=== PATIENT | female | born 1940 | race Asian ===

== ENCOUNTER 2017-03-13 23:00 | Inpatient (IN) | END 2017-03-17 21:06 | disposition home or self-care (01) | DRG 247 | DX: I25.719 Atherosclerosis of autologous vein coronary artery bypass graft(s) with unspecified angina pectoris (principal); E87.0 Hyperosmolality and hypernatremia; I25.119 Atherosclerotic heart disease of native coronary artery with unspecified angina pectoris; I10 Essential (primary) hypertension; E78.5 Hyperlipidemia, unspecified; Z87.11 Personal history of peptic ulcer disease; Z79.02 Long term (current) use of antithrombotics/antiplatelets; I25.82 Chronic total occlusion of coronary artery; Z95.5 Presence of coronary angioplasty implant and graft ==

== ENCOUNTER 2017-04-01 17:48 | Inpatient (IN) | payer MEDICARE, BC ==
[~2017-04-01] VITALS: Ht 154.9 cm; Wt 54.1 kg
[~2017-04-01 17:48] MED LIST: ASPI325T32 PO; CARV3.1260 PO; CLOP75TA27 PO; DOCU100C26 PO; ESTR1TAB14 PO; FERR-55 PO; ISOS60TA PO; LOSA25TA5 PO; OMEG100011 PO; OMEP20CA16 PO; RANO10002 PO; SIMV40TA3 PO; TRAM50TA2 PO; ZOLP10TA5 PO; calcium
[2017-04-01] MEDS ORDERED: ASPIRIN 325 MG TAB PO STA (18:15)
[2017-04-01] MEDS ORDERED: ONDANSETRON 4 MG INJ IV STA (18:15)
[2017-04-01] MEDS ORDERED: morphine 4 MG/ML VIAL IV STA (18:15)
[2017-04-01] MEDS ORDERED: NITROGLYCERIN 2% 1 GM OINT PKT TD STA (18:15)
[2017-04-01 18:26] LABS: BASOPHILS % 0.4 % (0.0-2.0); EOSINOPHILS # 0.1 10^3/ul (0.0-0.5); EOSINOPHILS % 0.9 % (0.0-7.0); HEMATOCRIT 33.8 % (37.0-47.0); HEMOGLOBIN 11.7 g/dl (12.0-16.0); LYMPHOCYTES # 1.1 10^3/ul (0.8-2.9); LYMPHOCYTES % 20.3 % (15.0-51.0); MEAN CORPUSCULAR HEMOGLOBIN 35.7 pg (29.0-33.0); MEAN CORPUSCULAR HGB CONC 34.6 g/dl (32.0-37.0); MEAN PLATELET VOLUME 10.1 fl (7.4-10.4); MONOCYTE # 0.4 10^3/ul (0.3-0.9); MONOCYTES % 7.3 % (0.0-11.0); NEUTROPHIL # 3.9 10^3/ul (1.6-7.5); NEUTROPHILS % 70.7 % (39.0-77.0); PLATELET COUNT 224 10^3/UL (140-415); RED BLOOD COUNT 3.28 10^6/ul (4.20-5.40); RED CELL DISTRIBUTION WIDTH 11.8 % (11.5-14.5); WHITE BLOOD COUNT 5.5 10^3/ul (4.8-10.8)
[2017-04-01] MEDS ORDERED: NITROGLYCERIN (SL) 0.4 MG TAB SL PRN (18:30)
[2017-04-01 18:49] LABS: ALBUMIN 4.5 g/dl (3.3-4.9); ALBUMIN/GLOBULIN RATIO 1.5; BILIRUBIN,INDIRECT 0.3 mg/dl (0-1.1); BILIRUBIN,TOTAL 0.3 mg/dl (0.2-1.3); CALCIUM 9.1 mg/dl (8.4-10.2); CREATININE 0.99 mg/dl (0.44-1.00); POTASSIUM 4.7 mmol/L (3.5-5.1); TOTAL PROTEIN 7.5 g/dl (6.1-8.1)
[2017-04-01 18:52] LABS: INR 0.91; PROTIME 12.3 Sec (12.2-14.2)
[2017-04-01 18:53] LABS: PARTIAL THROMBOPLASTIN TIME 20.8 Sec (25.0-35.0)
--- NOTE | 2017-04-01 18:53 | RADRPT ---
PROCEDURE: XR Chest. CLINICAL INDICATION: Chest pain. TECHNIQUE: Single frontal view of the chest. COMPARISON: 07/12/2016. FINDINGS: Cardiomegaly and mild atherosclerotic calcifications in the thoracic aorta. Mild atelectasis at the left lung base is decreased over the interval. The lungs are otherwise clear. No signs of pleural fluid or pneumothorax are seen. The osseous structures and soft tissues are unremarkable. IMPRESSION: Mild atelectasis at the left lung base is decreased over the interval. RPTAT: [facility] Physician Janine Date Time Electronically viewed and signed by Physician Janine on 04/01/2017 18:53 RS/
[2017-04-01 19:00] LABS: TROPONIN-I 0.03 ng/ml (0.00-0.12)
[2017-04-01] MEDS ORDERED: AMLO2.5T78 PO (19:12)
[2017-04-01] MEDS ORDERED: DOCU-159 PO (19:13)
[2017-04-01] MEDS ORDERED: FER325 PO (19:14)
[2017-04-01] MEDS ORDERED: OMEG-135 PO (19:15)
[2017-04-01] MEDS ORDERED: OMEP20CA16 PO (19:15)
[2017-04-01] MEDS ORDERED: [UNRECOGNIZED DRUG - CODE] PO (19:16)
[2017-04-01] MEDS ORDERED: ASPI-664 PO (19:18)
--- NOTE | 2017-04-01 19:58 | ERA ---
ER Documentation Chief Complaint Date/Time DATE: 04/01/17 TIME: 19:55 Chief Complaint CHEST PAIN FOR 3 DAYS PROGRESSIVELY GETTING WORSE WITH NO SOB. HPI This is a 76-year-old female who was recently discharged in the hospital a few weeks ago for chest pain. Patient sees Dr. Robles is pre coder. The patient says that she had chest pain this morning and a few times throughout the day described as a chest pressure radiating up into her neck or shortness of breath. The patient took nitroglycerin but it did not help much and the chest pain eventually ruled is resolved. The patient was in the hospital and had a cardiac cath and a stent was placed. She has multiple other stents and is a status post CABG patient On arrival here the patient is chest pain-free. ROS All systems reviewed and are negative except as per history of present illness. Medications Home Meds Active Scripts Isosorbide Mononitrate* (Isosorbide Mononitrate*) 60 Mg Tab.er.24h, 30 MG PO DAILY, #60 TAB Prov:MARY ABDI MD 04/10/16 Reported Medications Aspirin* (Aspirin* EC) 81 Mg Tablet.dr, 81 MG PO DAILY, TAB 04/01/17 Estrogens Conjugated* (Premarin*) 0.45 Mg Tablet, 0.45 MG PO DAILY, TAB 04/01/17 Omeprazole* (Omeprazole*) 20 Mg Capsule.dr, 20 MG PO DAILY, #30 CAP 04/01/17 [place]-3 Fatty Acids/Fish Oil (Fish Oil 1,000 mg Capsule) 1 Each Capsule, 1 EACH PO DAILY, CAP 04/01/17 Ferrous Sulfate* (Ferrous Sulfate*) 325 Mg Tabec, 325 MG PO TID, TAB 04/01/17 Docusate Sodium* (Docusate Sodium*) 100 Mg Capsule, 100 MG PO DAILY, #30 CAP 04/01/17 Amlodipine Besylate* (Amlodipine Besylate*) 2.5 Mg Tablet, 2.5 MG PO DAILY, #30 TAB 04/01/17 Tramadol HCl (Tramadol HCl) 50 Mg Tablet, 50 MG PO BID, #60 TAB 03/14/17 Clopidogrel Bisulfate (Clopidogrel) 75 Mg Tablet, 75 MG PO DAILY, #30 TAB 03/14/17 Zolpidem Tartrate* (Zolpidem Tartrate*) 10 Mg Tablet, 10 MG PO QHS Y for INSOMNIA, #30 TAB 08/05/16 Carvedilol* (Carvedilol*) 3.125 Mg Tablet, 3.125 MG PO BID, #60 TAB 08/05/16 Losartan Potassium* (Losartan Potassium*) 25 Mg Tablet, 25 MG PO DAILY, TAB 08/05/16 Ranolazine* (Ranexa*) 1,000 Mg Tab.sr.12h, 1000 MG PO Q12, TAB 04/10/16 Simvastatin (Simvastatin) 40 Mg Tablet, 40 MG PO HS, TAB 10/07/14 Discontinued Reported Medications [calcium] No Conflict Check, 500 MG DAILY 03/14/17 Docusate Sodium* (Doc-Q-Lace*) 100 Mg Capsule, 100 MG PO DAILY, CAP 03/14/17 Estrogen,Con/M-Progest Acet (Prempro 0.45-1.5 mg Tablet) 1 Each Tablet, 1 EACH PO for 1 Day, TAB 08/05/16 Omeprazole* (Omeprazole*) 20 Mg Capsule.dr, 20 MG PO DAILY, #30 CAP 08/05/16 Ferrous Sulfate* (Ferrous Sulfate*) 325 Mg Tablet, 325 MG PO TID, TAB 10/07/14 [place]-3 Fatty Acids/Fish Oil* (Fish Oil *) 1,000 Mg Capsule, 1000 MG PO DAILY, CAP 10/07/14 Discontinued Scripts Aspirin (Aspir-Lissa) 325 Mg Tablet.dr, 325 MG PO DAILY for 28 Days Prov:KATE MERCADO MD 03/17/17 Allergies Allergies: Coded Allergies: No Known Drug Allergies (Verified Allergy, Mild, 04/01/17) PMhx/Soc History of Surgery: Yes (CABG, appendectomy, ) Anesthesia Reaction: No Hx Neurological Disorder: No Hx Respiratory Disorders: No Hx Cardiac Disorders: Yes (NM, CABG, CAD, HTN) Hx Psychiatric Problems: No Hx Miscellaneous Medical Probl: Yes Hx Alcohol Use: No Hx Substance Use: No Hx Tobacco Use: No Smoking Status: Never smoker FmHx Family History: No coronary disease Physical Exam Vitals Vital Signs Date Time Temp Pulse Resp B/P Pulse Ox O2 Delivery O2 Flow Rate FiO2 04/01/17 19:38 Nasal Cannula 2 04/01/17 19:38 78 18 109/70 99 Room Air 04/01/17 18:45 84 18 117/65 99 Room Air 04/01/17 17:51 97.9 83 20 124/86 98 Physical Exam Const: Well-developed, well-nourished Head: Atraumatic, normocephalic Eyes: Normal Conjunctiva, PERRLA, EOMI, normal sclera, no nystagmus ENT: Normal External Ears, Nose and Mouth, moist mucus membranes. Neck: Full range of motion. No meningismus, no lymphadenopathy. Resp: Clear to auscultation bilaterally, no wheezing, rhonchi, rales Cardio: Regular rate and rhythm, 2/6 systolic ejection murmurs, S1 S2 present Abd: Soft, non tender x 4, non distended. Normal bowel sounds, no guarding or rebound, no pulsitile abdominal masses or bruits Skin: No petechiae or rashes, no ecchymosis , no maculopapular rash Back: No midline or flank tenderness Ext: No cyanosis, or edema, FROM x 4, normal inspection, neurovascularly intact x 4 Neur: Awake and alert, STR 5/5 x 4, sensation intact x 4, no focal findings, cerebellum intact Psych: Normal Mood and Affect Result Diagram: 04/01/17180404/01/171804 Results 24 hrs Laboratory Tests Test 04/01/17 18:05 White Blood Count 5.510^3/ul Red Blood Count 3.2810^6/ul Hemoglobin 11.7g/dl Hematocrit 33.8% Mean Corpuscular Volume 103.0fl Mean Corpuscular Hemoglobin 35.7pg Mean Corpuscular Hemoglobin Concent 34.6g/dl Red Cell Distribution Width 11.8% Platelet Count 14147^3/UL Mean Platelet Volume 10.1fl Neutrophils % 70.7% Lymphocytes % 20.3% Monocytes % 7.3% Eosinophils % 0.9% Basophils % 0.4% Nucleated Red Blood Cells % 0.0/100WBC Neutrophils # 3.910^3/ul Lymphocytes # 1.110^3/ul Monocytes # 0.410^3/ul Eosinophils # 0.110^3/ul Basophils # 0.010^3/ul Nucleated Red Blood Cells # 0.010^3/ul Prothrombin Time 12.3Sec Prothrombin Time Ratio 1.0 INR International Normalized Ratio 0.91 Activated Partial Thromboplast Time 20.8Sec Sodium Level 143mmol/L Potassium Level 4.7mmol/L Chloride Level 103mmol/L Carbon Dioxide Level 25mmol/L Anion Gap 20 Blood Urea Nitrogen 23mg/dl Creatinine 0.99mg/dl Glucose Level 143mg/dl Calcium Level 9.1mg/dl Total Bilirubin 0.3mg/dl Direct Bilirubin 0.00mg/dl Indirect Bilirubin 0.3mg/dl Aspartate Amino Transf (AST/SGOT) 31IU/L Alanine Aminotransferase (ALT/SGPT) 27IU/L Alkaline Phosphatase 51IU/L Troponin I 0.030ng/ml Total Protein 7.5g/dl Albumin 4.5g/dl Globulin 3.00g/dl Albumin/Globulin Ratio 1.50 Current Medications Medications (Trade) Dose Ordered Sig/Edward Route PRN Reason Start Time Stop Time Status Last Admin Dose Admin Aspirin (Aspirin) 325 mg ONCE STAT PO 04/01/17 18:15 04/01/17 18:17 DC 04/01/17 18:25 Nitroglycerin (Nitroglycerin 2% Oint) 1 inch ONCE STAT TD 04/01/17 18:15 04/01/17 18:17 DC 04/01/17 18:25 Nitroglycerin (Nitroglycerin (Sl Tab) 0.4 Mg) 1 tab Q5M UP TO 3 DOSES PRN SL CHEST PAIN 04/01/17 18:30 Morphine Sulfate (morphine) 4 mg ONCE STAT IV 04/01/17 18:15 04/01/17 18:17 DC 04/01/17 18:25 Ondansetron HCl (Zofran Inj) 4 mg ONCE STAT IV 04/01/17 18:15 04/01/17 18:17 DC 04/01/17 18:26 Procedures/MDM PROCEDURE: XR Chest. CLINICAL INDICATION: Chest pain. TECHNIQUE: Single frontal view of the chest. COMPARISON: 07/12/2016. FINDINGS: Cardiomegaly and mild atherosclerotic calcifications in the thoracic aorta. Mild atelectasis at the left lung base is decreased over the interval. The lungs are otherwise clear. No signs of pleural fluid or pneumothorax are seen. The osseous structures and soft tissues are unremarkable. IMPRESSION: Mild atelectasis at the left lung base is decreased over the interval. RPTAT: [facility] Physician Janine Date Time Electronically viewed and signed by Diego Campbell Physician on 04/01/2017 18:53 RS/ CC: RHONDA CODY DO EKG: Rate/Rhythm: Normal sinus rhythm, incomplete right bundle branch block QRS, ST, QT: NORMAL PA, QRS, QT] Impression: Abnormal EKG Patient's showing no sign of acute myocardial infarction. Could be some coagulation in her new stent. I did speak with her primary care doctor Dr. Mercado. I will admit to him and consult Dr. Robles We will give Lovenox as precaution case she is developing some clot in her new stent Patient's symptoms are concerning for cardiac cause will require inpatient workup and continuous monitoring. Further w/u for ischemia, arrhythmia, PE or dissection will be deferred to the inpatient team. Accepting Care Team: Current data and ongoing care discussed. Time: Time of admission Primary Provider: [XOXOXO] Consulting: [XOXOXO] Outstanding Data: none Departure Diagnosis: Primary Impression: Chest pain Qualified Code: R07.9 - Chest pain, unspecified type Condition: Stable RHONDA CODY DO Apr 01, 2017 19:58
[2017-04-01] MEDS ORDERED: ONDANSETRON 4 MG INJ IV PRN (20:00)
[2017-04-01] MEDS ORDERED: ACETAMINOPHEN 325 MG TAB PO PRN (20:00)
[2017-04-01] MEDS ORDERED: ENOXAPARIN 60 MG/0.6 ML SYG SC SCH (20:00)
[2017-04-01 20:43] VITALS: TEMP 98
[2017-04-01 21:18] VITALS: PULSE 77
[2017-04-01 21:39] VITALS: Ht 154.9 cm; Wt 54.1 kg
[2017-04-01] MEDS ORDERED: morphine 4 MG/ML VIAL IV PRN (22:51)
[2017-04-02] VITALS (13 sets, daily range): BP systolic 108–121; BP diastolic 58–73; PULSE 62–98; RESP 15–19
--- NOTE | 2017-04-02 | QN ---
Documentation Comment [id number] KATE MERCADO MD Apr 02, 2017 00:00
[2017-04-02] MEDS: PANTOPRAZOLE (EC) 40 MG TAB PO SCH (05:09)
--- NOTE | 2017-04-02 07:23 | HP ---
DATE OF ADMISSION: 04/01/2017 HISTORY OF PRESENT ILLNESS: Heidi Najera is an elderly female who was recently discharged from this hospital with diagnosis of the patient had chest pain. Patient has peptic ulcer disease with ulcer. Patient was admitted for chest pain. Underwent left heart cath. Patient has history of bypass graft and angiography. Patient is status post PTCA and stent x1 to SVC to RCA, with 2.28 mm drug-eluting stent and patient postprocedure was stable and was discharged home. Patient presents back here with chest pain and is being admitted for further management. PAST MEDICAL HISTORY: History of CAD, CABG, hypertension, dyslipidemia, status post PTCA and stent placement. ALLERGIES: NEGATIVE. FAMILY HISTORY: Negative. SOCIAL HISTORY: Negative. MEDICATIONS: Amlodipine, aspirin, Coreg, Plavix, docusate sodium, iron sulfate, isosorbide, losartan, [place]-3 fatty acid, Ranexa, simvastatin, tramadol, Ambien. REVIEW OF SYSTEMS: HEENT: Unremarkable. RESPIRATORY: Unremarkable. CARDIOVASCULAR: Complaining of chest pain and diffuse . GASTROINTESTINAL: Unremarkable. GENITOURINARY: Unremarkable. NEUROLOGIC: Unremarkable. PHYSICAL EXAMINATION: GENERAL: Patient is awake, alert. VITAL SIGNS: Pulse 77, blood pressure 116/77. HEENT: Atraumatic, normocephalic. Pupils equal, reactive to light. No periorbital ecchymosis. NECK: Supple. LUNGS: Clear. CARDIAC: Normal s1s2 are noted. ABDOMEN: Soft, nontender. Bowel sounds positive. No palpable masses. EXTREMITIES: No clubbing, cyanosis, or edema. NEUROLOGIC: Patient is awake, alert. DATA: Hematocrit 33.8. Sodium 143, potassium 4.7. IMPRESSION: 1. Patient has acute coronary syndrome. 2. History of hypertension. 3. History of dyslipidemia. 4. History of coronary artery bypass graft. 5. History of coronary angiogram and percutaneous transluminal coronary angioplasty and stent placement. PLAN: Obtain cardiology consultation. Continue oxygen, aspirin, Plavix, home medications, Lovenox. Cardiology consultation has been obtained. Dictated By: Camron Davis MD /margo/jaimie /Document#: [id number] BRINA
[2017-04-02] MEDS ORDERED: NITROGLYCERIN 2% 1 GM OINT PKT TD SCH (09:00)
[2017-04-02] MEDS: FERROUS SULFATE (EC) 325 MG TAB PO SCH ×3 (09:56→20:48)
[2017-04-02] MEDS: DOCUSATE SODIUM 100 MG CAP PO SCH (09:56)
[2017-04-02] MEDS: ASPIRIN 325 MG TAB PO SCH (09:56)
[2017-04-02] MEDS: ENOXAPARIN 40 MG/0.4 ML SYG SC SCH (09:56)
[2017-04-02] MEDS: CLOPIDOGREL 75 MG TAB PO SCH (09:56)
[2017-04-02] MEDS: AMLODIPINE 2.5 MG TAB PO SCH (09:57)
[2017-04-02] MEDS: traMADol 50 MG TAB PO SCH ×2 (09:57→20:48)
[2017-04-02] MEDS: RANOLAZINE (SR) 500 MG TAB PO SCH ×2 (11:29→20:47)
[2017-04-02] MEDS: LOSARTAN 25 MG TAB PO SCH (11:29)
[2017-04-02] MEDS ORDERED: IBUPROFEN 600 MG TAB PO ONE (13:00)
[2017-04-02] MEDS: ISOSORBIDE DINITRATE 10 MG TAB PO SCH ×2 (13:00→20:47)
--- NOTE | 2017-04-02 13:55 | PN ---
Date/Time of Note Date/Time of Note DATE: 04/02/17 TIME: 13:54 Assessment/Plan VTE Prophylaxis VTE Prophylaxis Intervention: SCD's Lines/Catheters IV [facility]ter [facility]from [facility] [place] Assessment/Plan Chief Complaint/Hosp Course 1. Acute coronary syndrome. 2. Hypertension, controlled. 3. History of dyslipidemia. 4. History of coronary artery bypass graft. 5. History of coronary angiogram and percutaneous transluminal coronary angioplasty and stent placement. 6. CAD 7. Anemia Problems: Assessment/Plan 1. Dr Robles for cardio consult 2. Telemetry Subjective 24 Hr Interval Summary Cardiovascular: chest pain (09/08 , pressure like) Exam/Review of Systems Vital Signs Vitals Vital Signs Date Time Temp Pulse Resp B/P Pulse Ox O2 Delivery O2 Flow Rate FiO2 04/02/17 12:20 77 04/02/17 11:15 97.5 18 111/59 94 04/02/17 07:48 Nasal Cannula 2.0 Exam Constitutional: alert Psych: no complaints ENMT: nl external ears & nose Neck: supple Respiratory: clear to auscultation Cardiovascular: regular rate and rhythm Results Result Diagram: 04/01/17 1805 04/01/17 180 Results 24 hrs Laboratory Tests Test 04/01/17 18:05 04/02/17 06:14 04/02/17 12:09 White Blood Count 5.5 Red Blood Count 3.28 L Hemoglobin 11.7 L Hematocrit 33.8 L Mean Corpuscular Volume 103.0 H Mean Corpuscular Hemoglobin 35.7 H Mean Corpuscular Hemoglobin Concent 34.6 Red Cell Distribution Width 11.8 Platelet Count 224 # Mean Platelet Volume 10.1 Neutrophils % 70.7 Lymphocytes % 20.3 Monocytes % 7.3 Eosinophils % 0.9 Basophils % 0.4 Nucleated Red Blood Cells % 0.0 Neutrophils # 3.9 Lymphocytes # 1.1 Monocytes # 0.4 Eosinophils # 0.1 Basophils # 0.0 Nucleated Red Blood Cells # 0.0 Prothrombin Time 12.3 Prothrombin Time Ratio 1.0 INR International Normalized Ratio 0.91 Activated Partial Thromboplast Time 20.8 L Sodium Level 143 Potassium Level 4.7 Chloride Level 103 Carbon Dioxide Level 25 Anion Gap 20 H Blood Urea Nitrogen 23 H Creatinine 0.99 Glucose Level 143 Calcium Level 9.1 Total Bilirubin 0.3 Direct Bilirubin 0.00 Indirect Bilirubin 0.3 Aspartate Amino Transf (AST/SGOT) 31 Alanine Aminotransferase (ALT/SGPT) 27 Alkaline Phosphatase 51 Troponin I 0.030 0.038 0.031 Total Protein 7.5 Albumin 4.5 Globulin 3.00 Albumin/Globulin Ratio 1.50 Medications Medications Current Medications Morphine Sulfate (morphine) 2 mg Q3H PRN IV CHEST PAIN Last administered on 04/01 23:01; Admin Dose 2 MG; Start 04/01/17 at 22:51 Aspirin (Aspirin) 325 mg DAILY PO Last administered on 04/02/17 09:56; Admin Dose 325 MG; Start 04/02/17 at 09:00 Enoxaparin Sodium (Lovenox) 40 mg DAILY SC Last administered on 04/02/17 09:56 ; Admin Dose 40 MG; Start 04/02/17 at 09:00 Pantoprazole (Protonix Tab) 40 mg DAILY@06 PO Last administered on 04/02/17 05: 09; Admin Dose 40 MG; Start 04/02/17 at 06:00 Amlodipine Besylate (Norvasc) 2.5 mg DAILY PO Last administered on 04/02/17 09: 57; Admin Dose 2.5 MG; Start 04/02/17 at 09:00 Carvedilol (Coreg) 3.125 mg BID PO Last administered on 04/02/17 09:57; Admin Dose 3.125 MG; Start 04/02/17 at 09:00 Clopidogrel Bisulfate (plaVIX) 75 mg DAILY PO Last administered on 04/02/17 09: 56; Admin Dose 75 MG; Start 04/02/17 at 09:00 Docusate Sodium (Colace) 100 mg DAILY PO Last administered on 04/02/17 09:56; Admin Dose 100 MG; Start 04/02/17 at 09:00 Ferrous Sulfate (Ferrous Sulfate (Ec)) 325 mg TID PO Last administered on 12:38; Admin Dose 325 MG; Start 04/02/17 at 09:00 Losartan Potassium (Cozaar) 25 mg DAILY PO Last administered on 04/02/17 11:29 ; Admin Dose 25 MG; Start 04/02/17 at 09:00 Ranolazine (Ranexa) 1,000 mg Q12 PO Last administered on 04/02/17 11:29; Admin Dose 1,000 MG; Start 04/02/17 at 09:00 Tramadol HCl (Ultram) 50 mg BID PO Last administered on 04/02/17t 09:57; Admin Dose 50 MG; Start 04/02/17 at 09:00 Zolpidem Tartrate (Ambien) 10 mg QHS PRN PO INSOMNIA; Start 04/02/17 at 00:00 Isosorbide Dinitrate (Isordil) 10 mg TID PO ; Start 04/02/17 at 13:00 JEWEL MCDONNELL Apr 02, 2017 13:55
--- NOTE | 2017-04-02 15:04 | RADRPT ---
Vent Rate: 65 bpm RR Interval: 0 msec [place] Interval: 218 msec QRS Duration: 96 msec QT Interval: 426 msec QTC Interval: 443 msec P-R-T [place]: 56 - 4 - 72 degrees Sinus rhythm with 1st degree AV block Incomplete right bundle branch block Anterior infarct , age undetermined Abnormal ECG Electronically Signed By: Jason Robles [id number]
[2017-04-02] MEDS: ZOLPIDEM 5 MG TAB PO PRN (20:46)
[2017-04-03] VITALS (10 sets, daily range): BP systolic 99–115; BP diastolic 55–63; PULSE 60–71; RESP 18
--- NOTE | 2017-04-03 03:52 | CONS ---
DATE OF ADMISSION: 04/01/2017 DATE OF CONSULTATION: 04/02/2017 REQUESTING PHYSICIAN: Camron Davis MD REASON FOR CONSULTATION: Chest pain and acute coronary syndrome. HISTORY OF PRESENT ILLNESS: Ms. Najera is a 76-year-old female with history of coronary artery disease status post coronary artery bypass graft surgery, dyslipidemia, hypertension, prior PTCA and stent placement, and GI bleed who had recently undergone PTCA and stent placement to saphenous vein graft supplying the right coronary artery for the episodes of chest pain and findings of high-grade stenosis on cardiac catheterization dated 03/15/2017. She now re-presents with complaint of substernal chest pain. The patient describes this chest pain as occurring at rest, with radiation down to her abdomen and has a pressure- like heaviness component, as well as stabbing. Upon arrival in the Emergency Department, temperature of 97.9, blood pressure 124/86, pulse 83, respiratory rate 20, saturating at 98 percent. The patient's labs revealed a sodium of 142, potassium 4.7, creatinine 0.99, BUN 23, troponin negative; AST 31, ALT 27; white count is 5.5, hemoglobin 11.7, platelet count of 224; INR 0.91. The patient underwent a chest x-ray revealing mild atelectasis at the lung bases. The patient's electrocardiogram revealed sinus rhythm at 84 with incomplete right bundle branch block, secondary to repolarization abnormalities and nonspecific ST and T-wave insufficiency. The patient was subsequently admitted to the floor and since admitted to the floor has had second set of troponins which were negative when checking troponins. The patient states she continues to have chest pain at this time and on palpation of her chest I was able to reproduce much of the patient's chest pain component with pressure applied to her chest. PAST MEDICAL HISTORY: As above in the HPI. MEDICATIONS: Currently in the hospital: 1. Aspirin 325 mg daily. 2. Nitroglycerin paste 1 inch q.12 hours. 3. Lovenox 5 mg subcu daily. 4. Norvasc 2.5 mg daily. 5. Carvedilol 3.125 mg p.o. b.i.d. 6. Plavix 75 mg daily. 7. Cozaar 25 mg daily. 8. Ranexa 1000 mg q.12 hours. 9. Protonix 40 mg daily. 10. Ultram 50 mg 2 b.i.d. 11. Warfarin p.r.n. 12. Tylenol p.r.n. 13. Supplemental oxygen. ALLERGIES: NO KNOWN DRUG ALLERGIES. SOCIAL HISTORY: No tobacco, EtOH or illicit drug use. FAMILY HISTORY: Negative for sudden cardiac or early CAD. REVIEW OF SYSTEMS: Other than in HPI: CONSTITUTIONAL: No fevers or chills. PULMONARY: No current shortness of breath. CARDIOVASCULAR: Intermittent chest pain. GASTROINTESTINAL: No vomiting. GENITOURINARY: No hematuria. MUSCULOSKELETAL: Degenerative joint disease. PSYCHIATRIC: Possible anxiety. NEUROLOGIC: No neurologic deficits or CVA. PHYSICAL EXAMINATION: VITAL SIGNS: Temperature of 97.5, blood pressure 111/59, pulse 59, respiratory rate 18, saturating at 94 percent. GENERAL: The patient is alert, awake, complaining of substernal chest pain. NECK: JVP approximately 8-9 cm of water. CHEST: Fair air movement throughout. HEART: Regular rate and rhythm. Normal S1, S2 and 1/6 systolic murmur. Nondisplaced PMI. ABDOMEN: Soft. Positive bowel sounds. EXTREMITIES: No edema, 1-plus pulses bilaterally posterior tibial. LABORATORY: Most recently from today: Troponin negative x2. From yesterday, sodium 143, potassium 4.7, creatinine 0.99, BUN of 23; white blood cell count 5.5, hemoglobin 11.7 platelet count 224. Imaging studies, as above in HPI. No further imaging studies for my review at this time. ECG, as above in HPI. No further electrocardiogram for my review at this time. IMPRESSION: 1. Chest pain recurrence. Somewhat atypical at this time with reproducibility of chest pain on palpation of the patient's chest. Negative troponins x2 at this time. Status post recent percutaneous transluminal coronary angioplasty and stent placement to saphenous vein graft. All grafts patent and sten patent at that time. 2. History of percutaneous transluminal coronary angioplasty and stent placement to saphenous vein graft supplying the right coronary artery 03/15/2017 with drug-eluting stent. 3. Coronary artery disease status post coronary artery bypass graft surgery with the patient's grafts patent, with high-grade stenosis at time of catheterization February 2017, status post percutaneous transluminal coronary angioplasty and stent placement to this graft. 4. Diastolic dysfunction by most recent 2D echocardiogram 03/15/2017. 5. Abnormal electrocardiogram with nonspecific ST and T-wave abnormalities. Assessed for acute coronary syndrome, with negative troponins x2. 6. Hypertension. Under reasonable control. 7. Dyslipidemia. RECOMMENDATIONS: 1. At this time, would maintain the patient on her current medications including aspirin, Cozaar, and Norvasc, would discontinue the patient's nitro paste, and resume the patient's baseline oral nitrates, follow blood pressure closely with possible need to hold the patient's losartan if blood pressure is low and continuing other antianginal medications. 2. Continue the patient's aspirin and Plavix at this time for stent patency. 3. Complete to test to rule out myocardial infarction to ascertain if the patient's chest pain is not due to any recurrent acute coronary syndrome as acute myocardial infarction. 4. Continue to check serial EKGs to assess for any particular changes with an EKG in the morning. EKG for any complaint of chest pain or change in rhythm. Also give the patient a dose of ibuprofen to see if it improves possible musculoskeletal chest pain, as there is reproducibility of chest pain on palpation of the chest and we will review the patient's catheterization films to ensure there are no other unidentified vessels that may be related chest pain. Thanks for letting me take part in the care of this patient. I will continue to follow her very closely with you and effect changes that need to be made in regards to her inpatient hospital course. Dictated By: Armando Staton /margo/lucinda /Document#: [id number] CC: Camron Davis MD;*[facility]*
[2017-04-03] MEDS: PANTOPRAZOLE (EC) 40 MG TAB PO SCH (05:53)
[2017-04-03 06:38] LABS: BASOPHILS % 0.5 % (0.0-2.0); EOSINOPHILS # 0.1 10^3/ul (0.0-0.5); EOSINOPHILS % 2.6 % (0.0-7.0); HEMATOCRIT 32.6 % (37.0-47.0); HEMOGLOBIN 11.3 g/dl (12.0-16.0); LYMPHOCYTES # 1.2 10^3/ul (0.8-2.9); LYMPHOCYTES % 31.5 % (15.0-51.0); MEAN CORPUSCULAR HGB CONC 34.7 g/dl (32.0-37.0); MEAN CORPUSCULAR VOLUME 103.8 fl (82.0-101.0); MONOCYTE # 0.5 10^3/ul (0.3-0.9); MONOCYTES % 12.5 % (0.0-11.0); NEUTROPHIL # 2.1 10^3/ul (1.6-7.5); NEUTROPHILS % 52.6 % (39.0-77.0); PLATELET COUNT 201 10^3/UL (140-415); RED BLOOD COUNT 3.14 10^6/ul (4.20-5.40); RED CELL DISTRIBUTION WIDTH 11.9 % (11.5-14.5); WHITE BLOOD COUNT 3.9 10^3/ul (4.8-10.8)
[2017-04-03 07:01] LABS: CALCIUM 8.9 mg/dl (8.4-10.2); CREATININE 0.81 mg/dl (0.44-1.00); POTASSIUM 4.3 mmol/L (3.5-5.1)
[2017-04-03 07:02] LABS: CHOL/HDL RATIO 2.2 RATIO
[2017-04-03] MEDS: LOSARTAN 25 MG TAB PO SCH (09:00)
[2017-04-03] MEDS: ISOSORBIDE DINITRATE 10 MG TAB PO SCH ×3 (09:00→20:04)
[2017-04-03] MEDS: AMLODIPINE 2.5 MG TAB PO SCH (09:00)
[2017-04-03] MEDS: CLOPIDOGREL 75 MG TAB PO SCH (09:13)
[2017-04-03] MEDS: RANOLAZINE (SR) 500 MG TAB PO SCH ×2 (09:13→20:05)
[2017-04-03] MEDS: DOCUSATE SODIUM 100 MG CAP PO SCH (09:13)
[2017-04-03] MEDS: ASPIRIN 325 MG TAB PO SCH (09:13)
[2017-04-03] MEDS: FERROUS SULFATE (EC) 325 MG TAB PO SCH ×3 (09:13→20:04)
[2017-04-03] MEDS: ENOXAPARIN 40 MG/0.4 ML SYG SC SCH (09:15)
[2017-04-03] MEDS: traMADol 50 MG TAB PO SCH ×2 (09:16→21:19)
[2017-04-03] MEDS ORDERED: morphine 2 MG INJ IV PRN (12:00)
--- NOTE | 2017-04-03 13:47 | PN ---
Date/Time of Note Date/Time of Note DATE: 04/03/17 TIME: 13:47 Assessment/Plan VTE Prophylaxis VTE Prophylaxis Intervention: ambulation Lines/Catheters IV Catheter Type (from [facility]): Saline Lock Urinary Cath still in place: No Assessment/Plan Chief Complaint/Hosp Course 1. Acute coronary syndrome. 2. Hypertension, controlled. 3. History of dyslipidemia. 4. History of coronary artery bypass graft. 5. History of coronary angiogram and percutaneous transluminal coronary angioplasty and stent placement. 6. CAD 7. Anemia Problems: Assessment/Plan 1. Continue current regime Subjective 24 Hr Interval Summary Constitutional: improved, no complaints Gastrointestinal: no complaints Genitourinary: no complaints Musculoskeletal: no complaints Exam/Review of Systems Vital Signs Vitals Vital Signs Date Time Temp Pulse Resp B/P Pulse Ox O2 Delivery O2 Flow Rate FiO2 04/03/17 11:18 98.1 66 18 112/63 96 04/02/17 22:00 Nasal Cannula 2.0 Intake and Output 04/02/17 04/02/17 04/03/17 15:00 23:00 07:00 Intake Total 1200 ml 300 ml Balance 1200 ml 300 ml Exam Psych: no complaints Head: normocephalic Neck: supple Respiratory: clear to auscultation Cardiovascular: regular rate and rhythm Results Result Diagram: 04/03/17 0541 04/03/17 0541 Results 24 hrs Laboratory Tests Test 04/03/17 05:41 White Blood Count 3.9 #L Red Blood Count 3.14 L Hemoglobin 11.3 L Hematocrit 32.6 L Mean Corpuscular Volume 103.8 H Mean Corpuscular Hemoglobin 36.0 H Mean Corpuscular Hemoglobin Concent 34.7 Red Cell Distribution Width 11.9 Platelet Count 201 Mean Platelet Volume 10.0 Neutrophils % 52.6 Lymphocytes % 31.5 Monocytes % 12.5 H Eosinophils % 2.6 Basophils % 0.5 Nucleated Red Blood Cells % 0.0 Neutrophils # 2.1 Lymphocytes # 1.2 Monocytes # 0.5 Eosinophils # 0.1 Basophils # 0.0 Nucleated Red Blood Cells # 0.0 Sodium Level 142 Potassium Level 4.3 Chloride Level 101 Carbon Dioxide Level 29 Anion Gap 16 Blood Urea Nitrogen 21 H Creatinine 0.81 Glucose Level 86 # Calcium Level 8.9 Triglycerides Level 103 Cholesterol Level 169 LDL Cholesterol, Calculated 74 HDL Cholesterol 74 Cholesterol/HDL Ratio 2.2 Medications Medications Current Medications Aspirin (Aspirin) 325 mg DAILY PO Last administered on 04/03/17 09:13; Admin Dose 325 MG; Start 04/02/17 at 09:00 Enoxaparin Sodium (Lovenox) 40 mg DAILY SC Last administered on 04/03/17 09:15 ; Admin Dose 40 MG; Start 04/02/17 at 09:00 Pantoprazole (Protonix Tab) 40 mg DAILY@06 PO Last administered on 04/03/17 05: 53; Admin Dose 40 MG; Start 04/02/17 at 06:00 Amlodipine Besylate (Norvasc) 2.5 mg DAILY PO Last administered on 04/02/17 09: 57; Admin Dose 2.5 MG; Start 04/02/17 at 09:00 Carvedilol (Coreg) 3.125 mg BID PO Last administered on 04/02/17 09:57; Admin Dose 3.125 MG; Start 04/02/17 at 09:00 Clopidogrel Bisulfate (plaVIX) 75 mg DAILY PO Last administered on 04/03/17 09: 13; Admin Dose 75 MG; Start 04/02/17 at 09:00 Docusate Sodium (Colace) 100 mg DAILY PO Last administered on 04/03/17 09:13; Admin Dose 100 MG; Start 04/02/17 at 09:00 Ferrous Sulfate (Ferrous Sulfate (Ec)) 325 mg TID PO Last administered on 13:06; Admin Dose 325 MG; Start 04/02/17 at 09:00 Losartan Potassium (Cozaar) 25 mg DAILY PO Last administered on 04/02/17 11:29 ; Admin Dose 25 MG; Start 04/02/17 at 09:00 Ranolazine (Ranexa) 1,000 mg Q12 PO Last administered on 04/03/17 09:13; Admin Dose 1,000 MG; Start 04/02/17 at 09:00 Tramadol HCl (Ultram) 50 mg BID PO Last administered on 04/03/17 09:16; Admin Dose 50 MG; Start 04/02/17 at 09:00 Zolpidem Tartrate (Ambien) 10 mg QHS PRN PO INSOMNIA Last administered on 20:46; Admin Dose 10 MG; Start 8/4/17 at 00:00 Isosorbide Dinitrate (Isordil) 10 mg TID PO Last administered on 04/03/17t 13:06 ; Admin Dose 10 MG; Start 04/02/17 at 13:00 Morphine Sulfate (morphine) 2 mg Q3H PRN IV CHEST PAIN; Start 04/03/17 at 12:00 JEWEL MCDONNELL Apr 03, 2017 13:47
[2017-04-03] MEDS ORDERED: ATORVASTATIN 20 MG TAB PO SCH (21:00)
[2017-04-03] MEDS: ZOLPIDEM 5 MG TAB PO PRN (23:47)
[2017-04-04] VITALS (10 sets, daily range): BP systolic 103–121; BP diastolic 56–64; PULSE 68–76; RESP 17–20
[2017-04-04] MEDS: PANTOPRAZOLE (EC) 40 MG TAB PO SCH (06:40)
[2017-04-04] MEDS: ISOSORBIDE DINITRATE 10 MG TAB PO SCH ×2 (08:52→13:15)
[2017-04-04] MEDS: ASPIRIN 325 MG TAB PO SCH (09:04)
[2017-04-04] MEDS: FERROUS SULFATE (EC) 325 MG TAB PO SCH ×2 (09:04→13:15)
[2017-04-04] MEDS: CLOPIDOGREL 75 MG TAB PO SCH (09:04)
[2017-04-04] MEDS: DOCUSATE SODIUM 100 MG CAP PO SCH (09:04)
[2017-04-04] MEDS: RANOLAZINE (SR) 500 MG TAB PO SCH (09:04)
[2017-04-04] MEDS: LOSARTAN 25 MG TAB PO SCH (09:04)
[2017-04-04] MEDS: AMLODIPINE 2.5 MG TAB PO SCH (09:04)
[2017-04-04] MEDS: traMADol 50 MG TAB PO SCH (09:06)
[2017-04-04] MEDS: ENOXAPARIN 40 MG/0.4 ML SYG SC SCH (09:11)
--- NOTE | 2017-04-04 14:31 | CONS ---
Date/Time of Note Date/Time of Note DATE: 04/04/17 TIME: 14:31 Assessment/Plan Assessment/Plan Additional Assessment/Plan Atypical chest pian CAD s/p CABG, s/p stent to saphenous graft Hypertension Dyslipidemia Anemia Hemodynamically stable Continue Imdur Started on Lipitor Continue Coreg and Losartan Continue Norvasc Continue Ranexa Consultation Date/Type/Reason Admit Date/Time Apr 01, 2017 at 19:54 Initial Consult Date Exam/Review of Systems Vital Signs Vitals Vital Signs Date Time Temp Pulse Resp B/P Pulse Ox O2 Delivery O2 Flow Rate FiO2 04/04/17 13:42 76 04/04/17 11:35 98.1 18 121/64 100 04/02/17 22:00 Nasal Cannula 2.0 Intake and Output 04/03/17 04/03/17 04/04/17 15:00 23:00 07:00 Intake Total 1070 ml Balance 1070 ml Exam Constitutional: alert, oriented Head: atraumatic, normocephalic Respiratory: clear to auscultation Cardiovascular: regular rate and rhythm Gastrointestinal: nl liver, spleen, non-tender, soft Extremities: normal pulses Results Result Diagram: 04/03/17 0541 04/03/17 0541 Medications Medications Current Medications Aspirin (Aspirin) 325 mg DAILY PO Last administered on 04/04/17 09:04; Admin Dose 325 MG; Start 04/02/17 at 09:00 Enoxaparin Sodium (Lovenox) 40 mg DAILY SC Last administered on 04/04/17 09:11 ; Admin Dose 40 MG; Start 04/02/17 at 09:00 Pantoprazole (Protonix Tab) 40 mg DAILY@06 PO Last administered on 04/04/17 06: 40; Admin Dose 40 MG; Start 04/02/17 at 06:00 Amlodipine Besylate (Norvasc) 2.5 mg DAILY PO Last administered on 04/04/17 09: 04; Admin Dose 2.5 MG; Start 04/02/17 at 09:00 Carvedilol (Coreg) 3.125 mg BID PO Last administered on 04/04/17 09:04; Admin Dose 3.125 MG; Start 04/02/17 at 09:00 Clopidogrel Bisulfate (plaVIX) 75 mg DAILY PO Last administered on 04/04/17 09: 04; Admin Dose 75 MG; Start 04/02/17 at 09:00 Docusate Sodium (Colace) 100 mg DAILY PO Last administered on 04/04/17 09:04; Admin Dose 100 MG; Start 04/02/17 at 09:00 Ferrous Sulfate (Ferrous Sulfate (Ec)) 325 mg TID PO Last administered on 13:15; Admin Dose 325 MG; Start 04/02/17 at 09:00 Losartan Potassium (Cozaar) 25 mg DAILY PO Last administered on 04/04/17 09:04 ; Admin Dose 25 MG; Start 04/02/17 at 09:00 Ranolazine (Ranexa) 1,000 mg Q12 PO Last administered on 04/04/17 09:04; Admin Dose 1,000 MG; Start 04/02/17 at 09:00 Tramadol HCl (Ultram) 50 mg BID PO Last administered on 04/04/17 09:06; Admin Dose 50 MG; Start 04/02/17 at 09:00 Zolpidem Tartrate (Ambien) 10 mg QHS PRN PO INSOMNIA Last administered on 23:47; Admin Dose 10 MG; Start 04/02/17 at 00:00 Isosorbide Dinitrate (Isordil) 10 mg TID PO Last administered on 04/04/17 13:15 ; Admin Dose 10 MG; Start 04/02/17 at 13:00 Morphine Sulfate (morphine) 2 mg Q3H PRN IV CHEST PAIN; Start 04/03/17 at 12:00 Atorvastatin Calcium (Lipitor) 20 mg HS PO Last administered on 04/03/17 20:04 ; Admin Dose 20 MG; Start 04/03/17 at 21:00 KAYLAN WAGNER M.D. Apr 04, 2017 14:31
--- NOTE | 2017-04-04 16:30 | PDOCDIS ---
Discharge Instructions CONDITION Patient Condition: Stable HOME CARE INSTRUCTIONS: Diet Instructions: Low Fat /Cholesterol ACTIVITY: Activity Restrictions: Slowly Increase Activity FOLLOW UP/APPOINTMENTS Follow-up Plan f/u pcp [address] palomares 1 wk KATE MERCADO MD Apr 04, 2017 16:30
[2017-04-04] MEDS ORDERED: ASPI-664 PO (16:35)
[2017-04-04] MEDS ORDERED: CARV3.1260 PO (16:35)
[2017-04-04] MEDS ORDERED: LOSA25TA2 PO (16:35)
[2017-04-04] MEDS ORDERED: OMEG-135 PO (16:35)
[2017-04-04] MEDS ORDERED: RANO500T2 PO (16:35)
[2017-04-04] MEDS ORDERED: ISOS10TA2 PO (16:35)
--- NOTE | 2017-04-04 17:55 | PN ---
Date/Time of Note Date/Time of Note DATE: 04/04/17 TIME: 17:54 Assessment/Plan VTE Prophylaxis VTE Prophylaxis Intervention: other Lines/Catheters [facility] Saline Lock Urinary Cath still in place: No Assessment/Plan Chief Complaint/Hosp Course CAD HTN S/P CATH AND PCI PLAN HOME Problems: Subjective 24 Hr Interval Summary Cardiovascular: no complaints Exam/Review of Systems Vital Signs Vitals Vital Signs Date Time Temp Pulse Resp B/P Pulse Ox O2 Delivery O2 Flow Rate FiO2 04/04/17 16:57 68 04/04/17 15:58 97.9 17 118/61 98 04/02/17 22:00 Nasal Cannula 2.0 Intake and Output 04/03/17 04/03/17 04/04/17 15:00 23:00 07:00 Intake Total 1070 ml Balance 1070 ml Exam Neck: supple Respiratory: clear to auscultation Cardiovascular: regular rate and rhythm Gastrointestinal: soft Musculoskeletal: nl extremities to inspection Results Result Diagram: 04/03/17 0541 04/03/17 0541 Medications Medications Current Medications Aspirin (Aspirin) 325 mg DAILY PO Last administered on 04/04/17 09:04; Admin Dose 325 MG; Start 04/02/17 at 09:00 Enoxaparin Sodium (Lovenox) 40 mg DAILY SC Last administered on 04/04/17 09:11 ; Admin Dose 40 MG; Start 04/02/17 at 09:00 Pantoprazole (Protonix Tab) 40 mg DAILY@06 PO Last administered on 04/04/17 06: 40; Admin Dose 40 MG; Start 04/02/17 at 06:00 Amlodipine Besylate (Norvasc) 2.5 mg DAILY PO Last administered on 04/04/17 09: 04; Admin Dose 2.5 MG; Start 04/02/17 at 09:00 Carvedilol (Coreg) 3.125 mg BID PO Last administered on 04/04/17 09:04; Admin Dose 3.125 MG; Start 04/02/17 at 09:00 Clopidogrel Bisulfate (plaVIX) 75 mg DAILY PO Last administered on 04/04/17 09: 04; Admin Dose 75 MG; Start 04/02/17 at 09:00 Docusate Sodium (Colace) 100 mg DAILY PO Last administered on 04/04/17 09:04; Admin Dose 100 MG; Start 04/02/17 at 09:00 Ferrous Sulfate (Ferrous Sulfate (Ec)) 325 mg TID PO Last administered on 13:15; Admin Dose 325 MG; Start 04/02/17 at 09:00 Losartan Potassium (Cozaar) 25 mg DAILY PO Last administered on 04/04/17 09:04 ; Admin Dose 25 MG; Start 04/02/17 at 09:00 Ranolazine (Ranexa) 1,000 mg Q12 PO Last administered on 04/04/17 09:04; Admin Dose 1,000 MG; Start 04/02/17 at 09:00 Tramadol HCl (Ultram) 50 mg BID PO Last administered on 04/04/17 09:06; Admin Dose 50 MG; Start 04/02/17 at 09:00 Zolpidem Tartrate (Ambien) 10 mg QHS PRN PO INSOMNIA Last administered on 23:47; Admin Dose 10 MG; Start 04/02/17 at 00:00 Isosorbide Dinitrate (Isordil) 10 mg TID PO Last administered on 04/04/17 13:15 ; Admin Dose 10 MG; Start 04/02/17 at 13:00 Morphine Sulfate (morphine) 2 mg Q3H PRN IV CHEST PAIN; Start 04/03/17 at 12:00 Atorvastatin Calcium (Lipitor) 20 mg HS PO Last administered on 04/03/17 20:04 ; Admin Dose 20 MG; Start 04/03/17 at 21:00 KATE MERCADO MD Apr 04, 2017 17:55
--- NOTE | 2017-04-07 15:58 | RADRPT ---
Vent Rate: 62 bpm RR Interval: 0 msec IN Interval: 204 msec QRS Duration: 96 msec QT Interval: 380 msec QTC Interval: 385 msec P-R-T [place]: 52 - 11 - 65 degrees Normal sinus rhythm Incomplete right bundle branch block Possible Anterior infarct , age undetermined Abnormal ECG Electronically Signed By: Jason Robles [id number]
--- NOTE | 2017-04-08 08:32 | QN ---
Documentation Comment [id number] KATE MERCADO MD Apr 08, 2017 08:32
--- NOTE | 2017-04-08 13:32 | DS ---
DATE OF ADMISSION: 04/01/2017 DATE OF DISCHARGE: 04/04/2017 REASON FOR ADMISSION: Patient was admitted with diagnosis of chest pain. HOSPITAL COURSE: Patient recently had angiogram and PTCA and PCI. Patient was seen by Dr. Robles in consultation and his impression: A 76-year-old female with history of CAD, status post coronary artery bypass graft surgery, dyslipidemia, hypertension, prior PTCA and stent placement and GI bleed, who had arrhythmia, underwent PTCA and stent placement to saphenous vein graft supplying the right coronary artery for the episode of chest pain and finding of high-grade stenosis on cardiac catheterization. She now represents with complaint of substernal chest pain. Patient received pain medication, antianginal treatment. Patient was monitored by Dr. Robles and Dr. Camron Davis cleared this patient to be discharged home. Patient's UT was ruled out. Pain at this time is possibly musculoskeletal. DISCHARGE DIAGNOSES: 1. Atypical chest pain. 2. Status post coronary artery bypass graft. 3. Status post stent to saphenous graft. 4. Hypertension. 5. Dyslipidemia. 6. Anemia. 7. Patient has history of peptic ulcer disease. 8. Patient has mild azotemia. DISCHARGE MEDICATIONS: To continue on aspirin, Coreg, isosorbide, losartan, Ranexa, amlodipine, Plavix, docusate sodium, iron sulfate, [place]-3 fatty acid, omeprazole, simvastatin, tramadol, Ambien. FOLLOWUP: Patient to follow with PCP and Dr. Davis and Dr. Robles as an outpatient. Dictated By: Camron Davis MD /margo/mary alice /Document#: [id number]
== END 2017-04-04 18:12 | disposition home or self-care (01) | DRG 313 ==
LOC: E/R 17:48 → TEL 19:54
PROVIDERS: ADMIT Internal Medicine Nephrology; ATTEND Internal Medicine Nephrology
DX: R07.89 Other chest pain (principal); I25.10 Atherosclerotic heart disease of native coronary artery without angina pectoris; D64.9 Anemia, unspecified; I10 Essential (primary) hypertension; E78.5 Hyperlipidemia, unspecified; R94.31 Abnormal electrocardiogram [ECG] [EKG]; Z79.82 Long term (current) use of aspirin; Z95.1 Presence of aortocoronary bypass graft; Z87.11 Personal history of peptic ulcer disease; Z95.5 Presence of coronary angioplasty implant and graft
CPT/HCPCS: 36415; 71010; 80048; 80053; 80061; 84484; 85025; 85610; 85730; 93005; 96372; 96374; 96375; J1650; J2270; J2405

== ENCOUNTER 2017-05-11 19:10 | Inpatient (IN) | payer MEDICARE, BC ==
[~2017-05-11] VITALS: Ht 154.9 cm; Wt 55.1 kg
[~2017-05-11 19:10] MED LIST changes: +AMLO2.5T78 PO; +ASPI-664 PO; -ASPI325T32 PO; +DOCU-159 PO; -DOCU100C26 PO; -ESTR1TAB14 PO; +FER325 PO; -FERR-55 PO; +ISOS10TA2 PO; -ISOS60TA PO; +LOSA25TA2 PO; -LOSA25TA5 PO; +OMEG-135 PO; -OMEG100011 PO; -RANO10002 PO; +RANO500T2 PO; -calcium
[2017-05-11 19:55] LABS: BASOPHILS % 0.3 % (0.0-2.0); EOSINOPHILS # 0.1 10^3/ul (0.0-0.5); HEMATOCRIT 35.7 % (37.0-47.0); HEMOGLOBIN 12.3 g/dl (12.0-16.0); LYMPHOCYTES % 17.5 % (15.0-51.0); MEAN CORPUSCULAR HEMOGLOBIN 35.4 pg (29.0-33.0); MEAN CORPUSCULAR HGB CONC 34.5 g/dl (32.0-37.0); MEAN CORPUSCULAR VOLUME 102.9 fl (82.0-101.0); MEAN PLATELET VOLUME 9.9 fl (7.4-10.4); MONOCYTE # 0.4 10^3/ul (0.3-0.9); MONOCYTES % 7.5 % (0.0-11.0); NEUTROPHILS % 73.4 % (39.0-77.0); PLATELET COUNT 233 10^3/UL (140-415); RED BLOOD COUNT 3.47 10^6/ul (4.20-5.40); RED CELL DISTRIBUTION WIDTH 11.6 % (11.5-14.5); WHITE BLOOD COUNT 5.9 10^3/ul (4.8-10.8)
[2017-05-11 20:18] LABS: CALCIUM 9.4 mg/dl (8.4-10.2); CREATININE 0.92 mg/dl (0.44-1.00); POTASSIUM 3.8 mmol/L (3.5-5.1)
[2017-05-11] MEDS ORDERED: ISOS60TA PO (20:24)
[2017-05-11 20:30] LABS: TROPONIN-I 0.044 ng/ml (0.00-0.12)
--- NOTE | 2017-05-11 20:40 | RADRPT ---
PROCEDURE: XR Chest. CLINICAL INDICATION: Chest pain. TECHNIQUE: Single frontal view of the chest. COMPARISON: 07/12/2016. FINDINGS: Cardiomegaly. Mild atelectasis at the left lung base, decreased over the interval. The lungs otherwi se clear. No signs of pleural fluid or pneumothorax are seen. The osseous structures and soft tissue s are unremarkable. IMPRESSION: Decreased but persistent mild atelectasis at the left lung base over the interval. RPTAT: [facility] Physician Janine Date Time Electronically viewed and signed by Physician Janine on 05/11/2017 20:40 RS/
[2017-05-11] MEDS ORDERED: morphine 4 MG/ML VIAL IV STA (20:47)
[2017-05-11] MEDS ORDERED: LIDOCAINE/MYLANTA 40 ML BTL ONE (21:49)
[2017-05-11] MEDS ORDERED: LIDOCAINE/MYLANTA 40 ML BTL PO STA (21:50)
[2017-05-11 22:08] LABS: ALBUMIN 4.3 g/dl (3.3-4.9); ALBUMIN/GLOBULIN RATIO 1.43; BILIRUBIN,INDIRECT 0.3 mg/dl (0-1.1); BILIRUBIN,TOTAL 0.3 mg/dl (0.2-1.3); CALCIUM 9.6 mg/dl (8.4-10.2); CREATININE 0.9 mg/dl (0.44-1.00); TOTAL PROTEIN 7.3 g/dl (6.1-8.1)
--- NOTE | 2017-05-11 22:43 | ERA ---
ER Documentation Chief Complaint Date/Time DATE: 05/11/17 TIME: 22:39 Chief Complaint HAZEL RA39 from home c/o chest pressure pain radiating to back HPI This is a 76-year-old female who presents to the emergency room for evaluation of chest pain. The patient states that she is having a chest pain which she localizes to the center of her chest with no radiation. She has mild shortness of breath associated with it. She was brought in by ambulance from her home. The patient was given 324 mg of aspirin in route, was given 2 sublingual nitroglycerin with minimal relief. The patient does state that she has a history of coronary artery disease and previous stents ROS All systems reviewed and are negative except as per history of present illness. Medications Home Meds Active Scripts Ranolazine* (Ranexa*) 500 Mg Tab.sr.12h, 1000 MG PO Q12 for 28 Days, TAB Prov:KATE MERCADO MD 04/04/17 Losartan Potassium* (Cozaar*) 25 Mg Tablet, 25 MG PO DAILY for 28 Days, TAB Prov:KATE MERCADO MD 04/04/17 Carvedilol* (Carvedilol*) 3.125 Mg Tablet, 3.125 MG PO BID for 28 Days, TAB Prov:KATE MERCADO MD 04/04/17 [place]-3 Fatty Acids/Fish Oil (Fish Oil 1,000 mg Capsule) 1 Each Capsule, 1 EACH PO DAILY for 28 Days, CAP Prov:KATE MERCADO MD 04/04/17 Reported Medications Isosorbide Mononitrate* (Isosorbide Mononitrate*) 60 Mg Tab.er.24h, 60 MG PO DAILY, TAB 05/11/17 Omeprazole* (Omeprazole*) 20 Mg Capsule.dr, 20 MG PO DAILY, #30 CAP 04/01/17 Ferrous Sulfate* (Ferrous Sulfate*) 325 Mg Tabec, 325 MG PO TID, TAB 04/01/17 Docusate Sodium* (Docusate Sodium*) 100 Mg Capsule, 100 MG PO DAILY, #30 CAP 04/01/17 Amlodipine Besylate* (Amlodipine Besylate*) 2.5 Mg Tablet, 2.5 MG PO DAILY, #30 TAB 04/01/17 Tramadol HCl (Tramadol HCl) 50 Mg Tablet, 50 MG PO BID, #60 TAB 03/14/17 Clopidogrel Bisulfate (Clopidogrel) 75 Mg Tablet, 75 MG PO DAILY, #30 TAB 03/14/17 Zolpidem Tartrate* (Zolpidem Tartrate*) 10 Mg Tablet, 10 MG PO QHS Y for INSOMNIA, #30 TAB 08/05/16 Simvastatin (Simvastatin) 40 Mg Tablet, 40 MG PO HS, TAB 10/07/14 Discontinued Scripts Aspirin* (Aspirin* EC) 81 Mg Tablet.dr, 81 MG PO DAILY for 28 Days, TAB Prov:KATE MERCADO MD 04/04/17 Isosorbide Dinitrate* (Isordil*) 10 Mg Tablet, 10 MG PO TID for 28 Days, TAB Prov:KATE MERCADO MD 04/04/17 Allergies Allergies: Coded Allergies: No Known Drug Allergies (Verified Allergy, Mild, 05/11/17) PMhx/Soc History of Surgery: Yes (Quadriple CABG (2009);Cardiac Stents x2 (2016);Appy;C- Section) Anesthesia Reaction: No Hx Neurological Disorder: No Hx Respiratory Disorders: No Hx Cardiac Disorders: Yes (AZ,CAD,HTN) Hx Psychiatric Problems: No Hx Miscellaneous Medical Probl: Yes (GERD) Hx Alcohol Use: No Hx Substance Use: No Hx Tobacco Use: No Smoking Status: Never smoker Physical Exam Vitals Vital Signs Date Time Temp Pulse Resp B/P Pulse Ox O2 Delivery O2 Flow Rate FiO2 05/11/17 21:30 99.8 74 18 129/74 100 Room Air 05/11/17 21:10 Nasal Cannula 2 05/11/17 19:14 98.1 84 18 135/71 98 Physical Exam INITIAL VITAL SIGNS: Reviewed by me GENERAL: The patient is well developed and appropriate for usual state of health in no apparent distress HEENT: Pupils equal, round, and reactive to light. EOMI. There is no scleral icterus. NECK: C-spine is soft and supple, there is no meningismus. There is no cervical lymphadenopathy. LUNGS: Clear to auscultation bilaterally. There are no rales, wheezes or rhonchi. HEART: Regular rate and rhythm, no murmurs, clicks, rubs or gallops. ABDOMEN: Soft, non-tender, non-distended. There are bowel sounds in all four quadrants. No rebound or guarding. EXTREMITIES: There is no peripheral cyanosis or edema. No focal swelling or erythema. NEUROLOGICAL: The patient moves all four extremities with 5/5 strength. Cranial nerves II - XII are intact. Normal gait. Alert and oriented SKIN: There is no apparent rash or petechiae. HEME/LYMPHATIC: There is no evidence of excessive bruising or lymphedema. PSYCHIATRIC: The patient does not appear anxious or depressed. Result Diagram: 05/11/17193405/11/172127 Results 24 hrs Laboratory Tests Test 05/11/17 19:35 05/11/17 21:28 White Blood Count 5.910^3/ul Red Blood Count 3.4710^6/ul Hemoglobin 12.3g/dl Hematocrit 35.7% Mean Corpuscular Volume 102.9fl Mean Corpuscular Hemoglobin 35.4pg Mean Corpuscular Hemoglobin Concent 34.5g/dl Red Cell Distribution Width 11.6% Platelet Count 62134^3/UL Mean Platelet Volume 9.9fl Neutrophils % 73.4% Lymphocytes % 17.5% Monocytes % 7.5% Eosinophils % 1.0% Basophils % 0.3% Nucleated Red Blood Cells % 0.0/100WBC Neutrophils # (Manual) 4.310^3/ul Lymphocytes # 1.010^3/ul Monocytes # 0.410^3/ul Eosinophils # 0.110^3/ul Basophils # 0.010^3/ul Nucleated Red Blood Cells # 0.010^3/ul Sodium Level 141mmol/L 142mmol/L Potassium Level 3.8mmol/L 4.0mmol/L Chloride Level 105mmol/L 106mmol/L Carbon Dioxide Level 27mmol/L 27mmol/L Anion Gap 13 13 Blood Urea Nitrogen 19mg/dl 18mg/dl Creatinine 0.92mg/dl 0.90mg/dl Glucose Level 128mg/dl 109mg/dl Calcium Level 9.4mg/dl 9.6mg/dl Troponin I 0.044ng/ml Total Bilirubin 0.3mg/dl Direct Bilirubin 0.00mg/dl Indirect Bilirubin 0.3mg/dl Aspartate Amino Transf (AST/SGOT) 22IU/L Alanine Aminotransferase (ALT/SGPT) 30IU/L Alkaline Phosphatase 62IU/L Total Protein 7.3g/dl Albumin 4.3g/dl Globulin 3.00g/dl Albumin/Globulin Ratio 1.43 Lipase 91U/L Current Medications Medications (Trade) Dose Ordered Sig/Edward Route PRN Reason Start Time Stop Time Status Last Admin Dose Admin Morphine Sulfate (morphine) 4 mg ONCE STAT IV 05/11/17 20:47 05/11/17 20:48 DC 05/11/17 20:56 Miscellaneous Medication (Gi Cocktail (2)) 40 ml STK-MED ONCE .ROUTE 05/11/17 21:49 05/11/17 21:50 DC Miscellaneous Medication (Gi Cocktail (2)) 40 ml ONCE STAT PO 05/11/17 21:50 05/11/17 21:51 DC 05/11/17 21:52 Ondansetron HCl (Zofran Inj) 4 mg ER BRIDGE PRN IV NAUSEA AND/OR VOMITING 05/11/17 23:00 05/12/17 22:59 Acetaminophen (Tylenol Tab) 650 mg ER BRIDGE PRN PO MILD PAIN/FEVER 05/11/17 23:00 05/12/17 22:59 Procedures/MDM EKG: Rate/Rhythm: [Normal Sinus Rhythm] QRS, ST, T-waves: [No changes consistent w/ acute ischemia] Impression: [No evidence of ischemia or arrhythmia] Chest X-ray 1V Interpreted by me: Soft Tissue: No acute abnormalities Bones: No acute abnormalities Mediastinum/Cardiac Silhouette/Lungs: [No acute abnormalities] This is a 76-year-old female with a history of hypertension, CAD, multiple stents who presents to the emergency room for evaluation of chest pain. When I evaluated this patient she had no reproducible pain on my examination. The patient has been admitted in the past for this with the most recent admission 1 month ago. The patient is negative troponin and her EKG is nonischemic with a clear chest x-ray at this time. This patient does have multiple risk factors and given her age and her chest pain I did recommend this patient come in for admission and serial troponins. The patient is okay to plan of care. Her caregiver who is at bedside is also okay. The patient will be placed in for admission at this time under the care of Dr. Mercado. I have spoken to the covering physician for him, Dr. eli Departure Diagnosis: Primary Impression: Chest pain EARNESTMARIELLE QIUNNZIA CANSECO May 11, 2017 22:43
[2017-05-11] MEDS ORDERED: SOD CHLORIDE 0.9% 100 ML ONE (22:51)
[2017-05-11] MEDS ORDERED: IOHEXOL 350MG/ML 50 ML BTL ONE (22:52)
[2017-05-11] MEDS ORDERED: IOHEXOL 100 ML ONE (22:52)
[2017-05-11] MEDS ORDERED: ACETAMINOPHEN 325 MG TAB PO PRN (23:00)
[2017-05-11] MEDS ORDERED: ONDANSETRON 4 MG INJ IV PRN (23:00)
[2017-05-11 23:43] LABS: ADD UMIC YES; UR ASCORBIC ACID NEGATIVE (NEGATIVE); UR BILIRUBIN (Dip) NEGATIVE (NEGATIVE); UR BLOOD (Dip) NEGATIVE (NEGATIVE); UR CLARITY CLEAR (CLEAR); UR COLOR YELLOW (YELLOW); UR GLUCOSE (Dip) NEGATIVE (NEGATIVE); UR KETONES (Dip) NEGATIVE (NEGATIVE); UR LEUKOCYTE ESTERASE (Dip) 1+ Leu/ul (NEGATIVE); UR NITRITE (Dip) NEGATIVE (NEGATIVE); UR RBC 2 /HPF (0-5); UR SPECIFIC GRAVITY (Dip) 1.008 (1.003-1.030); UR TOTAL PROTEIN (Dip) NEGATIVE (NEGATIVE); UR UROBILINOGEN (Dip) NEGATIVE (NEGATIVE)
--- NOTE | 2017-05-11 23:54 | RADRPT ---
PROCEDURE: CT angiogram of the chest with contrast. CLINICAL INDICATION: Chest pain. TECHNIQUE: CT angiogram of the chest was obtained using a multi-detector high-resolution CT. Con tiguous axial images were obtained during the dynamic injection of 90 cc of Omnipaque 350 intravenou s contrast. Coronal and sagittal reformatted images were obtained. 3-D reformatted images were als o obtained. Images were reviewed on a PACS workstation. One or more of the following dose reduction techniques were used: - Automated exposure control. - Adjustment of the mA and/or kV according to patient size. - Use of iterative reconstruction technique. Exam CTD/vol = 9.12 mGy. Total exam DLP = 339.40 mGy-cm. COMPARISON: None. FINDINGS: The main pulmonary artery followed to the segmental divisions are well opacified. There is no filli ng defect or evidence of pulmonary embolism. The heart is mildly enlarged with coronary artery calc ifications. There is no pericardial thickening or effusion. The aorta is of normal course and sheldon emily with mild scattered atherosclerotic calcifications. There is no evidence of aortic aneurysm or d issection. Mediasternotomy wires are present. The thyroid is heterogeneous with multiple hypodense nodules eddy suring up to 1.9 cm in size. There are no enlarged axillary lymph nodes. There is a left pericardi al lymph node measuring 1.6 x 1.5 cm. There is no hilar lymph nodes by CT criteria. There is no par enchymal nodule or consolidation. There is no pleural effusion. There is mild bibasilar atelectasis . The central tracheobronchial tree is within normal limits. Limited evaluation of the upper abdomen demonstrates a gallstone. There is mild to moderate thickeni ng of the stomach especially involving the gastric antrum. IMPRESSION: No evidence of pulmonary embolism or aortic dissection. Mild cardiomegaly with coronary artery calcifications. Mild vascular calcifications reflective of atherosclerosis. Multinodular thyroid with hypodense nodule measuring up to 1.9 cm. Small left pericardial lymph node. Mild bibasilar atelectasis. Cholelithiasis. Mild to moderate thickening of the stomach could represent a nonspecific gastritis. Follow-up is rec ommended. .Giovanni Abad MD, MD Date Time Electronically viewed and signed by .Giovanni Abad MD, MD on 05/11/2017 23:54 .T/
[2017-05-12] VITALS (15 sets, daily range): BP systolic 97–140; BP diastolic 53–68; PULSE 61–76; RESP 18–20; TEMP 98.1; Ht 154.9 cm; Wt 55.1 kg
[2017-05-12 03:00] LABS: CK-MB 1.47 ng/ml (0.0-2.4); TROPONIN-I 0.044 ng/ml (0.00-0.12)
[2017-05-12] MEDS ORDERED: ONDANSETRON 4 MG INJ IV PRN (03:00)
[2017-05-12] MEDS ORDERED: morphine 2 MG INJ IV PRN (03:00)
[2017-05-12] MEDS ORDERED: ACETAMINOPHEN 325 MG TAB PO PRN (03:00)
[2017-05-12] MEDS: NITROGLYCERIN (SL) 0.4 MG TAB SL PRN ×6 (03:27→19:09)
[2017-05-12] MEDS: PANTOPRAZOLE (EC) 40 MG TAB PO SCH (05:22)
[2017-05-12] MEDS: traMADol 50 MG TAB PO PRN ×2 (07:56→20:15)
[2017-05-12 07:59] LABS: CK-MB 1.27 ng/ml (0.0-2.4); TROPONIN-I 0.047 ng/ml (0.00-0.12)
[2017-05-12] MEDS: CLOPIDOGREL 75 MG TAB PO SCH (08:31)
[2017-05-12] MEDS: FISH OIL 1,000 MG CAP PO SCH (08:36)
[2017-05-12] MEDS: FERROUS SULFATE (EC) 325 MG TAB PO SCH ×3 (08:37→20:12)
[2017-05-12] MEDS: DOCUSATE SODIUM 100 MG CAP PO SCH (08:37)
[2017-05-12] MEDS: RANOLAZINE (SR) 500 MG TAB PO SCH ×2 (08:38→20:12)
[2017-05-12] MEDS ORDERED: ISOSORBIDE MONONITRATE(SR)60 MG TAB PO SCH (09:00)
[2017-05-12] MEDS: LOSARTAN 25 MG TAB PO SCH (09:12)
--- NOTE | 2017-05-12 18:17 | CONS ---
DATE OF ADMISSION: 05/11/2017 DATE OF CONSULTATION: 05/12/2017 CARDIOLOGY CONSULTATION: REASON FOR CONSULTATION: Chest pain, assess for acute coronary syndrome. HISTORY OF PRESENT ILLNESS: Ms. Najera is a 76-year-old female with history of coronary artery disease status post coronary artery bypass graft surgery, dyslipidemia, hypertension, prior PTCA and stent placement, most recently, March 15, 2017, to saphenous vein graft supplying the right coronary artery for anastomotic stenosis who now presents with recurrent complaints of substernal chest pain described as a pressure-like sensation radiating toward her back occurring at rest. Upon arrival in the emergency department, temperature 98.1, blood pressure 135/71, pulse 98, respirations 18, O2 98 percent. The patient's labs, the white blood cell count 5.9, hemoglobin 12.3, platelet count 233. Sodium 141, potassium 3.8, creatinine 0.9, BUN 19. Troponin negative. Lipase 91. UA borderline positive. The patient underwent a chest x-ray revealing mild atelectasis at the lung base. A CT CTA that revealed no evidence of pulmonary embolism or infection, mild cardiomegaly, coronary calcification, mild vascular calcifications, multinodular thyroid with hyperdense nodule, small left pericardial lymph node, cholelithiasis, mild wall thickening of the stomach. The patient's electrocardiogram revealed normal sinus rhythm, rate of 76 with borderline left axis deviation, left atrial abnormality, incomplete right bundle block, secondary repolarization abnormalities in the anterior septal cues. The patient has now been admitted to the floor and since admitted to the floor, continued to complain of substernal chest pain. The patient has had 3 negative troponins at this time, ruling out acute myocardial infarction. PAST MEDICAL HISTORY: As above in HPI. MEDICATION: Medications currently in the hospital 1. Lipitor 20 mg at bedtime. 2. Carvedilol 3.125 mg p.o. b.i.d. 3. Plavix 75 mg daily. 4. Colace 100 mg daily. 5. Imdur 60 mg daily. 6. Cozaar 25 mg daily. 7. Ranexa 1000 mg q.12 hours. 8. Protonix 40 mg daily. 9. Ultram. 10. Ambien. 11. Sublingual nitroglycerin p.r.n. 12. Morphine p.r.n. 13. Zofran p.r.n. 14. Tylenol p.r.n. ALLERGIES: NO KNOWN DRUG ALLERGIES. SOCIAL HISTORY: No tobacco, EtOH or illicit drug use. FAMILY HISTORY: Negative for sudden cardiac or early CAD. REVIEW OF SYSTEMS: As above in HPI. CONSTITUTIONAL: No fevers or chills. RESPIRATORY: No current shortness of breath. CARDIOVASCULAR: Chest pain. GASTROINTESTINAL: No vomiting. GENITOURINARY: No hematuria. MUSCULOSKELETAL: Degenerative joint disease. PSYCHIATRIC: Positive anxiety. NEUROLOGIC: No documented CVA. PHYSICAL EXAMINATION: VITAL SIGNS: Temperature of 98.5, blood pressure 102/56, pulse 60, respiratory rate 20, satting 98 percent. GENERAL: The patient is alert, awake, complaining of substernal chest pain. NECK: JVP approximately 8-9 cm of water. LUNGS: Fair air movement throughout with mildly decreased breath sounds at the bases bilaterally. HEART: Regular rate and rhythm. Normal S1, S2, a 1/6 systolic murmur. Nondisplaced PMI. ABDOMEN: Positive bowel sounds. Soft. EXTREMITIES: No edema, 1+ pulses bilaterally posterior tibial. LABORATORY DATA: Her most recent labs from today negative troponins x3 from May 11. Sodium 142, potassium 4, creatinine 0.9, BUN 8, white count 5.9, hemoglobin 12.3, platelet count of 233. IMAGING STUDIES: As above in HPI. No further imaging studies are reviewed at this time. ECG as above in HPI, no further electrocardiograms are reviewed this time. IMPRESSION: 1. Chest pain. Assess for acute coronary syndrome. 2. History of PTCA and stent placement in February 2017 to anastomotic lesion, saphenous vein graft to right coronary artery. 3. Coronary artery disease status post prior coronary bypass graft surgery. 4. Hypertension. 5. Dyslipidemia. 6. Abnormal electrocardiogram, assess for acute coronary syndrome. RECOMMENDATIONS: 1. At this time, would maintain patient on telemetry monitoring to follow rhythm and rate closely with tentative discharge if the patient has not had any recent acute coronary syndrome or any chest pain. 2. Continue patient's baseline carvedilol and losartan for blood pressure control. We will discontinue the patient's Imdur and Ranexa for antianginal effect with slight increase Imdur as tolerated following blood pressure closely. 3. Continue the patient's Plavix and resume aspirin for stent patency. 4. We will consider stress testing versus repeat cardiac cath to further ascertain any areas that may be lending to the patient's current chest pain upon admit to the hospital. Thank you for allowing me to take part in the care of this patient. I will continue to follow her closely with you during the patient's hospital course. Dictated By: Jason Robles MD /margo/jack /Document#: [id number] CC: Camron Davis MD;*[facility]*
[2017-05-12] MEDS: ATORVASTATIN 20 MG TAB PO SCH (20:14)
--- NOTE | 2017-05-12 23:40 | QN ---
Documentation Comment [id number] KATE MERCADO MD May 12, 2017 23:40
[2017-05-13] VITALS (11 sets, daily range): BP systolic 91–123; BP diastolic 51–61; PULSE 22–68; RESP 18–19
[2017-05-13] MEDS: PANTOPRAZOLE (EC) 40 MG TAB PO SCH (06:00)
[2017-05-13 07:18] LABS: CHOL/HDL RATIO 2.2 RATIO
[2017-05-13 07:20] LABS: ALBUMIN 3.5 g/dl (3.3-4.9); ALBUMIN/GLOBULIN RATIO 1.25; BILIRUBIN,INDIRECT 0.3 mg/dl (0-1.1); BILIRUBIN,TOTAL 0.3 mg/dl (0.2-1.3); CALCIUM 9.2 mg/dl (8.4-10.2); CREATININE 0.93 mg/dl (0.44-1.00); POTASSIUM 4.2 mmol/L (3.5-5.1); TOTAL PROTEIN 6.3 g/dl (6.1-8.1)
--- NOTE | 2017-05-13 07:29 | HP ---
DATE OF ADMISSION: 05/11/2017 HISTORY OF PRESENT ILLNESS: The patient is a 76-year-old female who has a history of CABG, history of stent of saphenous vein graft, history of hypertension, dyslipidemia, CAD, history of peptic ulcer disease who presented with chest pain. She denies any nausea, vomiting, or diarrhea. The patient was noted to have in the ER to have a blood pressure of 120/74. Hematocrit 35.7. Sodium 140, potassium 4. The patient is being admitted for further management. EKG shows sinus rhythm. PAST MEDICAL HISTORY: As mentioned above, is positive for hypertension, dyslipidemia, CAD, CABG, history of coronary angiogram and underwent PCI in the past. HOME MEDICATIONS: 1. Coreg. 2. Plavix. 3. Docusate sodium. 4. Iron sulfate. 5. Isosorbide. 6. Losartan. 7. Omeprazole. 8. Ranexa. 9. Tramadol. CURRENT MEDICATIONS: 1. Atorvastatin. 2. Coreg. 3. Plavix. 4. Docusate sodium. 5. Iron sulfate. 6. Fish oil. 7. Isosorbide. 8. Losartan. 9. Morphine. 10. Nitroglycerin. 11. Zofran. 12. Protonix. 13. Ranexa. 14. Tramadol. REVIEW OF SYSTEMS: HEENT: Normal. RESPIRATORY: Unremarkable. CVS: Unremarkable. ABDOMEN: As mentioned above, complaining of chest pain and mild abdominal pain. PHYSICAL EXAMINATION: GENERAL: The patient is awake, alert. VITAL SIGNS: Stable. HEENT: Head is atraumatic, normocephalic. Pupils are reactive to light. NECK: Supple. No JVD. LUNGS: Clear. CVS: S1, S2 normal. ABDOMEN: Soft, nontender. Bowel sounds are noted. EXTREMITIES: No cyanosis, clubbing, or edema. TUNGSTEN TENDER: The patient is awake, alert. No focal deficits. LABORATORY TESTS: The patient's CT angio of the chest with contrast shows no evidence of pulmonary embolism or aortic dissection. No cardiomegaly on coronary artery presentation. Multinodal goiter with hyperdense nodules measuring up to 2.5 cm. Small left pericardial lymph node. Mild atelectasis, cholelithiasis. Mild to moderate thickening of the stomach could represent gastritis. The patient's other laboratory data shows hematocrit 35.7. IMPRESSION: 1. Abdominal pain. 2. Chest pain. 3. Cholelithiasis. 4. cad disease. 5. Hypertension. 6. dyslipidemia. 7. s/p cabg 8 s/p cath and pci PLAN: Continue current treatment. Follow recommendation from cardiology. Laboratory data will be ordered. Dictated By: Camron Davis MD /margo/dacia /Document#: [id number] BRIAN
[2017-05-13] MEDS: FISH OIL 1,000 MG CAP PO SCH (08:27)
[2017-05-13] MEDS: DOCUSATE SODIUM 100 MG CAP PO SCH (08:27)
[2017-05-13] MEDS: RANOLAZINE (SR) 500 MG TAB PO SCH ×2 (08:27→21:00)
[2017-05-13] MEDS: FERROUS SULFATE (EC) 325 MG TAB PO SCH ×3 (08:27→21:00)
[2017-05-13] MEDS: ISOSORBIDE MONONITRATE(SR)30 MG TAB PO SCH (08:28)
[2017-05-13] MEDS: CLOPIDOGREL 75 MG TAB PO SCH (08:28)
[2017-05-13] MEDS: LOSARTAN 25 MG TAB PO SCH (08:28)
[2017-05-13 09:32] LABS: TROPONIN-I 0.042 ng/ml (0.00-0.12)
--- NOTE | 2017-05-13 11:13 | RADRPT ---
Vent Rate: 59 bpm RR Interval: 0 msec SD Interval: 202 msec QRS Duration: 98 msec QT Interval: 364 msec QTC Interval: 360 msec P-R-T Anchor Point: 55 - -6 - 79 degrees Sinus bradycardia Possible Left atrial enlargement Incomplete right bundle branch block Possible Anterior infarct , age undetermined Abnormal ECG Electronically Signed By: Kamran James [id number]
[2017-05-13] MEDS ORDERED: REGADENOSON 0.4 MG/5 ML SYG ONE (13:17)
--- NOTE | 2017-05-13 13:45 | CONS ---
Date/Time of Note Date/Time of Note DATE: 05/13/17 TIME: 13:40 Assessment/Plan Assessment/Plan Chief Complaint/Hosp Course IMPRESSION: 1. Chest pain. Assess for acute coronary syndrome.-negative trop x 3 2. History of PTCA and stent placement in February 2017 to anastomotic lesion, saphenous vein graft to right coronary artery. 3. Coronary artery disease status post prior coronary bypass graft surgery. 4. Hypertension. 5. Dyslipidemia. 6. Abnormal electrocardiogram, assess for acute coronary syndrome.-no change on serial ecg Recc: -Tele -serial ecg's -Continue current imdur/coreg -will hold losartan given low BP -Lexiscan stress today to assess for additional ischmic territory lending to CP and recurrent admit to hospital -Contiue statin/fish oil -Continue plavix and resume asa Problems: Consultation Date/Type/Reason Admit Date/Time May 11, 2017 at 22:38 Initial Consult Date 05/12/2017 Type of Consultation: cardiology Reason for Consultation chest pain Referring Provider: KATE MERCADO MD Exam/Review of Systems Vital Signs Vitals Vital Signs Date Time Temp Pulse Resp B/P Pulse Ox O2 Delivery O2 Flow Rate FiO2 05/13/17 11:53 97.5 67 18 92/51 98 05/12/17 07:00 Nasal Cannula 2.0 Intake and Output 05/12/17 05/12/17 05/13/17 15:00 23:00 07:00 Intake Total 700 ml 200 ml Balance 700 ml 200 ml Exam Review of Systems: CONSTITUTIONAL: No fevers, chills. PULMONARY: No sob CARDIOVASCULAR: No chest pain/palpitations GASTROINTESTINAL: No nausea/vomiting. GENITOURINARY: No hematuria/dysuria. MUSCULOSKELETAL: No myagias/arthalgias. PSYCHIATRIC: The patient denies depression. NEUROLOGIC: No weakness Constitutional: alert Psych: no complaints Head: normocephalic ENMT: mucosa pink and moist Neck: jvd Respiratory: diminished breath sounds (at bases/B) Cardiovascular: regular rate and rhythm Gastrointestinal: non-tender, soft Musculoskeletal: muscle tone (normal) Extremities: edema (none) Neurological: other (No focal deficits) Results Result Diagram: 05/11/17 1935 05/13/17 0641 Results 24 hrs Laboratory Tests Test 05/13/17 06:41 Sodium Level 139 Potassium Level 4.2 Chloride Level 106 Carbon Dioxide Level 29 Anion Gap 8 Blood Urea Nitrogen 18 Creatinine 0.93 Glucose Level 99 Calcium Level 9.2 Total Bilirubin 0.3 Direct Bilirubin 0.00 Indirect Bilirubin 0.3 Aspartate Amino Transf (AST/SGOT) 19 Alanine Aminotransferase (ALT/SGPT) 27 Alkaline Phosphatase 51 Troponin I 0.042 Total Protein 6.3 # Albumin 3.5 Globulin 2.80 Albumin/Globulin Ratio 1.25 Triglycerides Level 108 Cholesterol Level 177 LDL Cholesterol, Calculated 75 HDL Cholesterol 80 Cholesterol/HDL Ratio 2.2 Medications Medications Current Medications Carvedilol (Coreg) 3.125 mg BID PO Last administered on 05/13/17 08:28; Admin Dose 3.125 MG; Start 05/12/17 at 09:00 Clopidogrel Bisulfate (plaVIX) 75 mg DAILY PO Last administered on 05/13/17 08 :28; Admin Dose 75 MG; Start 05/12/17 at 09:00 Docusate Sodium (Colace) 100 mg DAILY PO Last administered on 05/13/17 08:27; Admin Dose 100 MG; Start 05/12/17 at 09:00 Ferrous Sulfate (Ferrous Sulfate (Ec)) 325 mg TID PO Last administered on 08:27; Admin Dose 325 MG; Start 05/12/17 at 09:00 Losartan Potassium (Cozaar) 25 mg DAILY PO Last administered on 05/13/17 08:28 ; Admin Dose 25 MG; Start 05/12/17 at 09:00 Ranolazine (Ranexa) 1,000 mg Q12 PO Last administered on 05/13/17 08:27; Admin Dose 1,000 MG; Start 05/12/17 at 09:00 Tramadol HCl (Ultram) 50 mg BID PRN PO PAIN Last administered on 05/12/17 20: 15; Admin Dose 50 MG; Start 05/12/17 at 03:00 Zolpidem Tartrate (Ambien) 10 mg QHS PRN PO INSOMNIA; Start 05/12/17 at 03:00 Fish Oil (Fish Oil) 1,000 mg DAILY PO Last administered on 05/13/17 08:27; Admin Dose 1,000 MG; Start 05/12/17 at 09:00 Atorvastatin Calcium (Lipitor) 20 mg DAILY@21 PO Last administered on 20:14; Admin Dose 20 MG; Start 05/12/17 at 21:00 Pantoprazole (Protonix Tab) 40 mg DAILY@06 PO Last administered on 05/12/17 05 :22; Admin Dose 40 MG; Start 05/12/17 at 06:00 Nitroglycerin (Nitroglycerin (Sl Tab) 0.4 Mg) 1 tab Q5M PRN SL ANGINA Last administered on 05/12/17 19:09; Admin Dose 1 TAB; Start 05/12/17 at 03:00 Morphine Sulfate (morphine) 2 mg Q4H PRN IV PAIN Last administered on 08:31; Admin Dose 2 MG; Start 05/12/17 at 03:00 Acetaminophen (Tylenol Tab) 650 mg Q6H PRN PO PAIN AND OR ELEVATED TEMP Last administered on 05/12/17 06:49; Admin Dose 650 MG; Start 05/12/17 at 03:00 Ondansetron HCl (Zofran Inj) 4 mg Q4H PRN IV NAUSEA AND/OR VOMITING Last administered on 05/12/17 06:49; Admin Dose 4 MG; Start 05/12/17 at 03:00 Isosorbide Mononitrate (Imdur) 90 mg DAILY PO Last administered on 05/13/17 08 :28; Admin Dose 90 MG; Start 05/13/17 at 09:00 FIDELIA KELLY May 13, 2017 13:45
--- NOTE | 2017-05-13 14:29 | CARRPT ---
DATE OF PROCEDURE: 05/13/2017 PROCEDURE PERFORMED: Lexiscan Cardiolite stress test, electrocardiogram portion. INDICATION: Chest pain refractory to medical therapy, assess for ischemic territory. BASELINE VITAL SIGNS AND ELECTROCARDIOGRAM: Pulse 66, blood pressure 99/57. Electrocardiogram reveals normal sinus rhythm, rate of 66, normal axis, normal intervals, with nonspecific ST findings throughout diffusely. PROCEDURE: The patient underwent standard Lexiscan infused protocol over 10 seconds followed by radiolabeled tracer. The patient's test was stopped due to completion of protocol. Maximal achieved blood pressure during test 108/55. Maximum heart rate during test 83. ELECTROCARDIOGRAM FINDINGS: The patient did not develop any new Lexiscan induced ST changes from baseline, showed documented PVCs. SYMPTOMS: The patient had complaints of a headache. No chest pain during stress testing. IMPRESSION: 1. No Lexiscan induced ST or T-wave changes from baseline abnormalities diagnostic cardiac ischemia. 2. No complaints of chest pain or shortness of breath during stress test. 3. No documented premature ventricular contractions during test. 4. Report of nuclear images to follow in separate dictation. Dictated By: Jason Robles MD /margo/jack /Document#: [id number] CC: Camron Davis MD;*End*
--- NOTE | 2017-05-13 15:58 | RADRPT ---
PROCEDURE: Lexiscan myocardial perfusion study CLINICAL INDICATION: 76 -year-old patient complaining of chest pain. TECHNIQUE: Lexiscan 0.4 mg intravenously separate acquisition gated myocardial perfusion SPECT usi ng Tc 99m Myoview 34.0 mCi intravenously at stress and Tc-99m Myoview, 11.0 mCi intravenously at res t was performed using the rest/stress sequence. Poststress Myoview SPECT images were obtained in th e supine position. COMPARISON: April 10, 2016. FINDINGS: Perfusion images reveal no evidence of perfusion defects. Lexiscan post stress gated SPECT images demonstrate no wall motion abnormalities. IMPRESSION: 1. Normal study with no evidence of new perfusion defects or new wall motion abnormalities. 2. The left ventricle ejection fraction at stress is greater than 70%., unchanged since the previou s study. A call report was made to Dr. Robles at 03:57 p.m. on May 13, 2017. RPTAT: HH .Janneth White MD, Date Time Electronically viewed and signed by .Janneth White MD, on 05/13/2017 15:58 .L/
--- NOTE | 2017-05-13 17:53 | PN ---
Date/Time of Note Date/Time of Note DATE: 05/13/17 TIME: 17:53 Assessment/Plan VTE Prophylaxis VTE Prophylaxis Intervention: other Lines/Catheters IV [facility] Urinary Cath still in place: No Assessment/Plan Chief Complaint/Hosp Course IMPRESSION: 1. Abdominal pain. 2. Chest pain. 3. Cholelithiasis. 4. cad disease. 5. Hypertension. 6. dyslipidemia. 7. s/p cabg 8 s/p cath and pci PLAN DR DE SOUZA TO SEE Problems: Subjective 24 Hr Interval Summary Respiratory: no complaints Cardiovascular: no complaints Gastrointestinal: other (DYSPEPSIA+) Exam/Review of Systems Vital Signs Vitals Vital Signs Date Time Temp Pulse Resp B/P Pulse Ox O2 Delivery O2 Flow Rate FiO2 05/13/17 16:00 68 05/13/17 15:45 97.6 18 96/53 53 05/12/17 07:00 Nasal Cannula 2.0 Intake and Output 05/12/17 05/12/17 05/13/17 15:00 23:00 07:00 Intake Total 700 ml 200 ml Balance 700 ml 200 ml Exam Respiratory: clear to auscultation Cardiovascular: regular rate and rhythm Gastrointestinal: soft Musculoskeletal: nl extremities to inspection Extremities: normal pulses Results Result Diagram: 05/11/17 1935 05/13/17 0641 Results 24 hrs Laboratory Tests Test 05/13/17 06:41 Sodium Level 139 Potassium Level 4.2 Chloride Level 106 Carbon Dioxide Level 29 Anion Gap 8 Blood Urea Nitrogen 18 Creatinine 0.93 Glucose Level 99 Calcium Level 9.2 Total Bilirubin 0.3 Direct Bilirubin 0.00 Indirect Bilirubin 0.3 Aspartate Amino Transf (AST/SGOT) 19 Alanine Aminotransferase (ALT/SGPT) 27 Alkaline Phosphatase 51 Troponin I 0.042 Total Protein 6.3 # Albumin 3.5 Globulin 2.80 Albumin/Globulin Ratio 1.25 Triglycerides Level 108 Cholesterol Level 177 LDL Cholesterol, Calculated 75 HDL Cholesterol 80 Cholesterol/HDL Ratio 2.2 Medications Medications Current Medications Carvedilol (Coreg) 3.125 mg BID PO Last administered on 05/13/17 08:28; Admin Dose 3.125 MG; Start 05/12/17 at 09:00 Clopidogrel Bisulfate (plaVIX) 75 mg DAILY PO Last administered on 05/13/17 08 :28; Admin Dose 75 MG; Start 05/12/17 at 09:00 Docusate Sodium (Colace) 100 mg DAILY PO Last administered on 05/13/17 08:27; Admin Dose 100 MG; Start 05/12/17 at 09:00 Ferrous Sulfate (Ferrous Sulfate (Ec)) 325 mg TID PO Last administered on 08:27; Admin Dose 325 MG; Start 05/12/17 at 09:00 Losartan Potassium (Cozaar) 25 mg DAILY PO Last administered on 05/13/17 08:28 ; Admin Dose 25 MG; Start 05/12/17 at 09:00; Status Future Hold Ranolazine (Ranexa) 1,000 mg Q12 PO Last administered on 05/13/17 08:27; Admin Dose 1,000 MG; Start 05/12/17 at 09:00 Tramadol HCl (Ultram) 50 mg BID PRN PO PAIN Last administered on 05/12/17 20: 15; Admin Dose 50 MG; Start 05/12/17 at 03:00 Zolpidem Tartrate (Ambien) 10 mg QHS PRN PO INSOMNIA; Start 05/12/17 at 03:00 Fish Oil (Fish Oil) 1,000 mg DAILY PO Last administered on 05/13/17 08:27; Admin Dose 1,000 MG; Start 05/12/17 at 09:00 Atorvastatin Calcium (Lipitor) 20 mg DAILY@21 PO Last administered on 20:14; Admin Dose 20 MG; Start 05/12/17 at 21:00 Pantoprazole (Protonix Tab) 40 mg DAILY@06 PO Last administered on 05/12/17 05 :22; Admin Dose 40 MG; Start 05/12/17 at 06:00 Nitroglycerin (Nitroglycerin (Sl Tab) 0.4 Mg) 1 tab Q5M PRN SL ANGINA Last administered on 05/12/17 19:09; Admin Dose 1 TAB; Start 05/12/17 at 03:00 Morphine Sulfate (morphine) 2 mg Q4H PRN IV PAIN Last administered on 08:31; Admin Dose 2 MG; Start 05/12/17 at 03:00 Acetaminophen (Tylenol Tab) 650 mg Q6H PRN PO PAIN AND OR ELEVATED TEMP Last administered on 05/12/17 06:49; Admin Dose 650 MG; Start 05/12/17 at 03:00 Ondansetron HCl (Zofran Inj) 4 mg Q4H PRN IV NAUSEA AND/OR VOMITING Last administered on 05/12/17 06:49; Admin Dose 4 MG; Start 05/12/17 at 03:00 Isosorbide Mononitrate (Imdur) 90 mg DAILY PO Last administered on 05/13/17 08 :28; Admin Dose 90 MG; Start 05/13/17 at 09:00 Aspirin (Aspirin) 325 mg DAILY PO ; Start 05/14/17 at 09:00 KATE MERCADO MD May 13, 2017 17:53
[2017-05-13] MEDS: ATORVASTATIN 20 MG TAB PO SCH (21:00)
[2017-05-13] MEDS: ZOLPIDEM 5 MG TAB PO PRN (22:36)
[2017-05-14] VITALS (12 sets, daily range): BP systolic 99–119; BP diastolic 53–65; PULSE 60–75; RESP 18–20
[2017-05-14] MEDS: PANTOPRAZOLE (EC) 40 MG TAB PO SCH (05:42)
[2017-05-14] MEDS: FISH OIL 1,000 MG CAP PO SCH (08:34)
[2017-05-14] MEDS: RANOLAZINE (SR) 500 MG TAB PO SCH ×2 (08:34→20:56)
[2017-05-14] MEDS: FERROUS SULFATE (EC) 325 MG TAB PO SCH ×3 (08:35→20:55)
[2017-05-14] MEDS: DOCUSATE SODIUM 100 MG CAP PO SCH (08:35)
[2017-05-14] MEDS: ISOSORBIDE MONONITRATE(SR)30 MG TAB PO SCH (08:35)
[2017-05-14] MEDS: CLOPIDOGREL 75 MG TAB PO SCH (08:36)
[2017-05-14] MEDS: traMADol 50 MG TAB PO PRN (08:36)
[2017-05-14] MEDS: ASPIRIN 325 MG TAB PO SCH (09:50)
--- NOTE | 2017-05-14 10:43 | PN ---
Date/Time of Note Date/Time of Note DATE: 05/14/17 TIME: 10:40 Assessment/Plan VTE Prophylaxis VTE Prophylaxis Intervention: ambulation Lines/Catheters IV [facility] Saline [facility] Urinary Cath still in place: No Assessment/Plan Chief Complaint/Hosp Course 1. Abdominal pain. 2. Chest pain, better. Lexiscan negative:' 1) No Lexiscan induced ST or T- wave changes from baseline abnormalities diagnostic cardiac ischemia. 2) No complaints of chest pain or shortness of breath during stress test. 30. No documented premature ventricular contractions during test. 3. Cholelithiasis. 4. CAD disease. 5. Hypertension, controlled. 6. Dyslipidemia. 7. s/p CABG 8. s/p cath and pci Problems: Assessment/Plan 1. Continue current regime 2. Dr Pereyra consult for cholelithiasis. Subjective 24 Hr Interval Summary Respiratory: no complaints Cardiovascular: no complaints Gastrointestinal: constipation (some), no complaints Exam/Review of Systems Vital Signs Vitals Vital Signs Date Time Temp Pulse Resp B/P Pulse Ox O2 Delivery O2 Flow Rate FiO2 05/14/17 08:10 63 05/14/17 07:41 97.8 18 119/65 90 05/12/17 07:00 Nasal Cannula 2.0 Intake and Output 05/13/17 05/13/17 05/14/17 15:00 23:00 07:00 Intake Total 900 ml 220 ml Balance 900 ml 220 ml Exam Constitutional: alert, oriented Eyes: nl conjunctiva ENMT: nl external ears & nose Respiratory: clear to auscultation Cardiovascular: regular rate and rhythm Gastrointestinal: soft Neurological: SAMPLE TAILOR II-XII intact Results Result Diagram: 05/11/175 05/13/17 0641 Medications Medications Current Medications Carvedilol (Coreg) 3.125 mg BID PO Last administered on 05/14/17 08:36; Admin Dose 3.125 MG; Start 05/12/17 at 09:00 Clopidogrel Bisulfate (plaVIX) 75 mg DAILY PO Last administered on 05/14/17 08 :36; Admin Dose 75 MG; Start 05/12/17 at 09:00 Docusate Sodium (Colace) 100 mg DAILY PO Last administered on 05/14/17 08:35; Admin Dose 100 MG; Start 05/12/17 at 09:00 Ferrous Sulfate (Ferrous Sulfate (Ec)) 325 mg TID PO Last administered on 08:35; Admin Dose 325 MG; Start 05/12/17 at 09:00 Losartan Potassium (Cozaar) 25 mg DAILY PO Last administered on 05/13/17 08:28 ; Admin Dose 25 MG; Start 05/12/17 at 09:00; Status Future Hold Ranolazine (Ranexa) 1,000 mg Q12 PO Last administered on 05/14/17 08:34; Admin Dose 1,000 MG; Start 05/12/17 at 09:00 Tramadol HCl (Ultram) 50 mg BID PRN PO PAIN Last administered on 05/14/17 08: 36; Admin Dose 50 MG; Start 05/12/17 at 03:00 Zolpidem Tartrate (Ambien) 10 mg QHS PRN PO INSOMNIA Last administered on 22:36; Admin Dose 10 MG; Start 05/12/17 at 03:00 Fish Oil (Fish Oil) 1,000 mg DAILY PO Last administered on 05/14/17 08:34; Admin Dose 1,000 MG; Start 05/12/17 at 09:00 Atorvastatin Calcium (Lipitor) 20 mg DAILY@21 PO Last administered on 21:00; Admin Dose 20 MG; Start 05/12/17 at 21:00 Pantoprazole (Protonix Tab) 40 mg DAILY@06 PO Last administered on 05/14/17 05 :42; Admin Dose 40 MG; Start 05/12/17 at 06:00 Nitroglycerin (Nitroglycerin (Sl Tab) 0.4 Mg) 1 tab Q5M PRN SL ANGINA Last administered on 05/12/17 19:09; Admin Dose 1 TAB; Start 05/12/17 at 03:00 Morphine Sulfate (morphine) 2 mg Q4H PRN IV PAIN Last administered on 08:31; Admin Dose 2 MG; Start 05/12/17 at 03:00 Acetaminophen (Tylenol Tab) 650 mg Q6H PRN PO PAIN AND OR ELEVATED TEMP Last administered on 05/12/17 06:49; Admin Dose 650 MG; Start 05/12/17 at 03:00 Ondansetron HCl (Zofran Inj) 4 mg Q4H PRN IV NAUSEA AND/OR VOMITING Last administered on 05/12/17 06:49; Admin Dose 4 MG; Start 05/12/17 at 03:00 Isosorbide Mononitrate (Imdur) 90 mg DAILY PO Last administered on 05/14/17 08 :35; Admin Dose 90 MG; Start 05/13/17 at 09:00 Aspirin (Aspirin) 325 mg DAILY PO Last administered on 05/14/17 09:50; Admin Dose 325 MG; Start 05/14/17 at 09:00 JEWEL MCDONNELL May 14, 2017 10:43
[2017-05-14 11:57] LABS: BASOPHILS % 0.6 % (0.0-2.0); EOSINOPHILS # 0.1 10^3/ul (0.0-0.5); HEMATOCRIT 33.9 % (37.0-47.0); HEMOGLOBIN 11.6 g/dl (12.0-16.0); LYMPHOCYTES # 0.8 10^3/ul (0.8-2.9); LYMPHOCYTES % 23.9 % (15.0-51.0); MEAN CORPUSCULAR HEMOGLOBIN 35.5 pg (29.0-33.0); MEAN CORPUSCULAR HGB CONC 34.2 g/dl (32.0-37.0); MEAN CORPUSCULAR VOLUME 103.7 fl (82.0-101.0); MEAN PLATELET VOLUME 9.6 fl (7.4-10.4); MONOCYTE # 0.3 10^3/ul (0.3-0.9); MONOCYTES % 9.7 % (0.0-11.0); NEUTROPHIL # 2.2 10^3/ul (1.6-7.5); NEUTROPHILS % 63.5 % (39.0-77.0); PLATELET COUNT 221 10^3/UL (140-415); RED BLOOD COUNT 3.27 10^6/ul (4.20-5.40); RED CELL DISTRIBUTION WIDTH 11.5 % (11.5-14.5); WHITE BLOOD COUNT 3.5 10^3/ul (4.8-10.8)
--- NOTE | 2017-05-14 15:13 | CONS ---
Date/Time of Note Date/Time of Note DATE: 05/14/17 TIME: 15:11 Assessment/Plan Assessment/Plan Additional Assessment/Plan 1. Chest pain. Assess for acute coronary syndrome.-negative trop x 3 - no CP , doubt ischemia. 2. History of PTCA and stent placement in February 2017 to anastomotic lesion, saphenous vein graft to right coronary artery. NO CP now, will monitpr now. 3. Coronary artery disease status post prior coronary bypass graft surgery. 4. Hypertension- well Rx, med rx in place. 5. Dyslipidemia. 6. Abnormal electrocardiogram, assess for acute coronary syndrome.-no change on serial ecg Consultation Date/Type/Reason Admit Date/Time May 11, 2017 at 22:38 Initial Consult Date Type of Consultation: cardiology Referring Provider: KATE MERCADO MD 24 HR Interval Summary Free Text/Dictation NO acute events - HR well controlled - will monitor clinically now . ROS: No fever, no chills, no nausea, no vomiting, no diarrhea/constipation No recent weight changes No chest pain, no PND, no orthopnea No dizziness, blurred vision No thirst, no heat or cold intolerance Exam/Review of Systems Vital Signs Vitals Vital Signs Date Time Temp Pulse Resp B/P Pulse Ox O2 Delivery O2 Flow Rate FiO2 05/14/17 13:14 60 05/14/17 12:00 98.0 110/60 97 Room Air 05/14/17 07:41 18 05/12/17 07:00 2.0 Intake and Output 05/13/17 05/13/17 05/14/17 15:00 23:00 07:00 Intake Total 900 ml 220 ml Balance 900 ml 220 ml Exam General: WN/WD/NAD, AOx 2-3 HEENT: Unicetric/atraumatic/EOMI (follows commands) NECK: JVD elevated, no thyromegaly Lymph: no lymphadenopathy HEART: regular with no S3, II/ systolic murmur at apex LUNGS: Coarse sounds ABD: soft, NT, ND, +BS : Intact Neuro: non focal SKIN: chronic changes EXT: trace edema Results Result Diagram: 05/14/17 1127 05/13/17 0641 Results 24 hrs Laboratory Tests Test 05/14/17 11:27 White Blood Count 3.5 #L Red Blood Count 3.27 L Hemoglobin 11.6 L Hematocrit 33.9 L Mean Corpuscular Volume 103.7 H Mean Corpuscular Hemoglobin 35.5 H Mean Corpuscular Hemoglobin Concent 34.2 Red Cell Distribution Width 11.5 Platelet Count 221 Mean Platelet Volume 9.6 Neutrophils % 63.5 Lymphocytes % 23.9 Monocytes % 9.7 Eosinophils % 2.0 Basophils % 0.6 Nucleated Red Blood Cells % 0.0 Neutrophils # 2.2 Lymphocytes # 0.8 Monocytes # 0.3 Eosinophils # 0.1 Basophils # 0.0 Nucleated Red Blood Cells # 0.0 Medications Medications Current Medications Carvedilol (Coreg) 3.125 mg BID PO Last administered on 05/14/17 08:36; Admin Dose 3.125 MG; Start 05/12/17 at 09:00 Clopidogrel Bisulfate (plaVIX) 75 mg DAILY PO Last administered on 05/14/17 08 :36; Admin Dose 75 MG; Start 05/12/17 at 09:00 Docusate Sodium (Colace) 100 mg DAILY PO Last administered on 05/14/17 08:35; Admin Dose 100 MG; Start 05/12/17 at 09:00 Ferrous Sulfate (Ferrous Sulfate (Ec)) 325 mg TID PO Last administered on 12:46; Admin Dose 325 MG; Start 05/12/17 at 09:00 Losartan Potassium (Cozaar) 25 mg DAILY PO Last administered on 05/13/17 08:28 ; Admin Dose 25 MG; Start 05/12/17 at 09:00; Status Future Hold Ranolazine (Ranexa) 1,000 mg Q12 PO Last administered on 05/14/17 08:34; Admin Dose 1,000 MG; Start 05/12/17 at 09:00 Tramadol HCl (Ultram) 50 mg BID PRN PO PAIN Last administered on 05/14/17 08: 36; Admin Dose 50 MG; Start 05/12/17 at 03:00 Zolpidem Tartrate (Ambien) 10 mg QHS PRN PO INSOMNIA Last administered on 22:36; Admin Dose 10 MG; Start 05/12/17 at 03:00 Fish Oil (Fish Oil) 1,000 mg DAILY PO Last administered on 05/14/17 08:34; Admin Dose 1,000 MG; Start 05/12/17 at 09:00 Atorvastatin Calcium (Lipitor) 20 mg DAILY@21 PO Last administered on 21:00; Admin Dose 20 MG; Start 05/12/17 at 21:00 Pantoprazole (Protonix Tab) 40 mg DAILY@06 PO Last administered on 05/14/17 05 :42; Admin Dose 40 MG; Start 05/12/17 at 06:00 Nitroglycerin (Nitroglycerin (Sl Tab) 0.4 Mg) 1 tab Q5M PRN SL ANGINA Last administered on 05/12/17 19:09; Admin Dose 1 TAB; Start 05/12/17 at 03:00 Morphine Sulfate (morphine) 2 mg Q4H PRN IV PAIN Last administered on 08:31; Admin Dose 2 MG; Start 05/12/17 at 03:00 Acetaminophen (Tylenol Tab) 650 mg Q6H PRN PO PAIN AND OR ELEVATED TEMP Last administered on 05/12/17 06:49; Admin Dose 650 MG; Start 05/12/17 at 03:00 Ondansetron HCl (Zofran Inj) 4 mg Q4H PRN IV NAUSEA AND/OR VOMITING Last administered on 05/12/17 06:49; Admin Dose 4 MG; Start 05/12/17 at 03:00 Isosorbide Mononitrate (Imdur) 90 mg DAILY PO Last administered on 05/14/17 08 :35; Admin Dose 90 MG; Start 05/13/17 at 09:00 Aspirin (Aspirin) 325 mg DAILY PO Last administered on 05/14/17 09:50; Admin Dose 325 MG; Start 05/14/17 at 09:00 JUANCARLOS FERNANDEZ MD May 14, 2017 15:12
[2017-05-14] MEDS: ATORVASTATIN 20 MG TAB PO SCH (20:55)
[2017-05-14] MEDS: ZOLPIDEM 5 MG TAB PO PRN (22:30)
[2017-05-15] VITALS (12 sets, daily range): BP systolic 104–127; BP diastolic 59–67; PULSE 60–77; RESP 18–20
[2017-05-15] MEDS: PANTOPRAZOLE (EC) 40 MG TAB PO SCH (06:24)
[2017-05-15] MEDS: RANOLAZINE (SR) 500 MG TAB PO SCH ×2 (08:22→20:33)
[2017-05-15] MEDS: ASPIRIN 325 MG TAB PO SCH (08:22)
[2017-05-15] MEDS: FERROUS SULFATE (EC) 325 MG TAB PO SCH ×3 (08:22→20:33)
[2017-05-15] MEDS: ISOSORBIDE MONONITRATE(SR)30 MG TAB PO SCH (08:23)
[2017-05-15] MEDS: FISH OIL 1,000 MG CAP PO SCH (08:23)
[2017-05-15] MEDS: DOCUSATE SODIUM 100 MG CAP PO SCH (08:23)
[2017-05-15] MEDS: CLOPIDOGREL 75 MG TAB PO SCH (08:23)
[2017-05-15 08:27] LABS: CALCIUM 9.5 mg/dl (8.4-10.2); CREATININE 0.98 mg/dl (0.44-1.00); POTASSIUM 4.3 mmol/L (3.5-5.1)
[2017-05-15] MEDS: traMADol 50 MG TAB PO PRN ×2 (12:23→20:37)
--- NOTE | 2017-05-15 13:00 | PN ---
Date/Time of Note Date/Time of Note DATE: 05/15/17 TIME: 12:58 Assessment/Plan VTE Prophylaxis VTE Prophylaxis Intervention: ambulation Lines/Catheters IV [facility] [place] [facility] Urinary Cath still in place: No Assessment/Plan Chief Complaint/Hosp Course 1. UTI with left CVA tenderness. 2. Chest pain, better. Lexiscan negative:' 1) No Lexiscan induced ST or T- wave changes from baseline abnormalities diagnostic cardiac ischemia. 2) No complaints of chest pain or shortness of breath during stress test. 30. No documented premature ventricular contractions during test. 3. Cholelithiasis. 4. CAD disease. 5. Hypertension, controlled. 6. Dyslipidemia. 7. s/p CABG 8. s/p cath and pci Problems: Assessment/Plan 1. Start on Bactrim 2. US kidney to r.o hydronephrosis Subjective 24 Hr Interval Summary Cardiovascular: no complaints Genitourinary: flank pain (02/06) Exam/Review of Systems Vital Signs Vitals Vital Signs Date Time Temp Pulse Resp B/P Pulse Ox O2 Delivery O2 Flow Rate FiO2 05/15/17 12:07 60 05/15/17 11:52 98.2 20 107/61 98 05/15/17 04:00 Room Air 05/12/17 07:00 2.0 Intake and Output 05/14/17 05/14/17 05/15/17 15:00 23:00 07:00 Intake Total 1000 ml 420 ml Balance 1000 ml 420 ml Exam Constitutional: alert, oriented Cardiovascular: regular rate and rhythm Gastrointestinal: soft Genitourinary - Female: CVA tenderness (left side) Results Result Diagram: 05/14/17 1127 05/15/17 0716 Results 24 hrs Laboratory Tests Test 05/15/17 07:16 Sodium Level 144 Potassium Level 4.3 Chloride Level 106 Carbon Dioxide Level 30 Anion Gap 12 Blood Urea Nitrogen 17 Creatinine 0.98 Glucose Level 102 Calcium Level 9.5 B-Type Natriuretic Peptide 116 Medications Medications Current Medications Carvedilol (Coreg) 3.125 mg BID PO Last administered on 05/15/17 08:22; Admin Dose 3.125 MG; Start 05/12/17 at 09:00 Clopidogrel Bisulfate (plaVIX) 75 mg DAILY PO Last administered on 05/15/17 08 :23; Admin Dose 75 MG; Start 05/12/17 at 09:00 Docusate Sodium (Colace) 100 mg DAILY PO Last administered on 05/15/17 08:23; Admin Dose 100 MG; Start 05/12/17 at 09:00 Ferrous Sulfate (Ferrous Sulfate (Ec)) 325 mg TID PO Last administered on 12:20; Admin Dose 325 MG; Start 05/12/17 at 09:00 Losartan Potassium (Cozaar) 25 mg DAILY PO Last administered on 05/13/17 08:28 ; Admin Dose 25 MG; Start 05/12/17 at 09:00; Status Future Hold Ranolazine (Ranexa) 1,000 mg Q12 PO Last administered on 05/15/17 08:22; Admin Dose 1,000 MG; Start 05/12/17 at 09:00 Tramadol HCl (Ultram) 50 mg BID PRN PO PAIN Last administered on 05/15/17 12: 23; Admin Dose 50 MG; Start 05/12/17 at 03:00 Zolpidem Tartrate (Ambien) 10 mg QHS PRN PO INSOMNIA Last administered on 22:30; Admin Dose 10 MG; Start 05/12/17 at 03:00 Fish Oil (Fish Oil) 1,000 mg DAILY PO Last administered on 05/15/17 08:23; Admin Dose 1,000 MG; Start 05/12/17 at 09:00 Atorvastatin Calcium (Lipitor) 20 mg DAILY@21 PO Last administered on 20:55; Admin Dose 20 MG; Start 05/12/17 at 21:00 Pantoprazole (Protonix Tab) 40 mg DAILY@06 PO Last administered on 05/15/17 06 :24; Admin Dose 40 MG; Start 05/12/17 at 06:00 Nitroglycerin (Nitroglycerin (Sl Tab) 0.4 Mg) 1 tab Q5M PRN SL ANGINA Last administered on 05/12/17 19:09; Admin Dose 1 TAB; Start 05/12/17 at 03:00 Morphine Sulfate (morphine) 2 mg Q4H PRN IV PAIN Last administered on 08:31; Admin Dose 2 MG; Start 05/12/17 at 03:00 Acetaminophen (Tylenol Tab) 650 mg Q6H PRN PO PAIN AND OR ELEVATED TEMP Last administered on 05/12/17 06:49; Admin Dose 650 MG; Start 05/12/17 at 03:00 Ondansetron HCl (Zofran Inj) 4 mg Q4H PRN IV NAUSEA AND/OR VOMITING Last administered on 05/12/17 06:49; Admin Dose 4 MG; Start 05/12/17 at 03:00 Isosorbide Mononitrate (Imdur) 90 mg DAILY PO Last administered on 05/15/17 08 :23; Admin Dose 90 MG; Start 05/13/17 at 09:00 Aspirin (Aspirin) 325 mg DAILY PO Last administered on 05/15/17 08:22; Admin Dose 325 MG; Start 05/14/17 at 09:00 JEWEL MCDONNELL May 15, 2017 13:00
--- NOTE | 2017-05-15 13:21 | CONS ---
Date/Time of Note Date/Time of Note DATE: 05/15/17 TIME: : Assessment/Plan Assessment/Plan Additional Assessment/Plan 1. back pain 2.gastritis 3.coronary artery disease,stable 4.gallstone Plan continue PPI If abdominal pain persist then EGD Consultation Date/Type/Reason Admit Date/Time May 11, 2017 at 22:38 Initial Consult Date Type of Consultation: cardiology Referring Provider: KATE MERCADO MD 24 HR Interval Summary Free Text/Dictation c/o back pain no nausea minimal left upper quadrant pain Exam/Review of Systems Vital Signs Vitals Vital Signs Date Time Temp Pulse Resp B/P Pulse Ox O2 Delivery O2 Flow Rate FiO2 05/15/17 12:07 60 05/15/17 11:52 98.2 20 107/61 98 05/15/17 04:00 Room Air 05/12/17 07:00 2.0 Intake and Output 05/14/17 05/14/17 05/15/17 15:00 23:00 07:00 Intake Total 1000 ml 420 ml Balance 1000 ml 420 ml Exam Constitutional: alert, oriented, well developed Psych: nl mood/affect, no complaints Head: atraumatic, normocephalic Eyes: EOMI, PERRL, nl conjunctiva, nl lids, nl sclera ENMT: nl external ears & nose, nl lips & teeth, nl nasal mucosa & septum Neck: non-tender, supple Respiratory: clear to auscultation, normal air movement Cardiovascular: nl pulses, regular rate and rhythm Gastrointestinal: nl liver, spleen, non-tender, soft Musculoskeletal: nl extremities to inspection, nl gait and stance Extremities: normal pulses Neurological: [employer] II-XII intact, nl mental status, nl speech, nl strength Skin: nl turgor, No rash or lesions Lymph: nl lymph nodes Results Result Diagram: 05/14/17 1127 05/15/17 0716 Results 24 hrs Laboratory Tests Test 05/15/17 07:16 Sodium Level 144 Potassium Level 4.3 Chloride Level 106 Carbon Dioxide Level 30 Anion Gap 12 Blood Urea Nitrogen 17 Creatinine 0.98 Glucose Level 102 Calcium Level 9.5 B-Type Natriuretic Peptide 116 Medications Medications Current Medications Carvedilol (Coreg) 3.125 mg BID PO Last administered on 05/15/17t 08:22; Admin Dose 3.125 MG; Start 05/12/17 at 09:00 Clopidogrel Bisulfate (plaVIX) 75 mg DAILY PO Last administered on 05/15/17 08 :23; Admin Dose 75 MG; Start 05/12/17 at 09:00 Docusate Sodium (Colace) 100 mg DAILY PO Last administered on 05/15/17 08:23; Admin Dose 100 MG; Start 05/12/17 at 09:00 Ferrous Sulfate (Ferrous Sulfate (Ec)) 325 mg TID PO Last administered on 12:20; Admin Dose 325 MG; Start 05/12/17 at 09:00 Losartan Potassium (Cozaar) 25 mg DAILY PO Last administered on 05/13/17 08:28 ; Admin Dose 25 MG; Start 05/12/17 at 09:00; Status Future Hold Ranolazine (Ranexa) 1,000 mg Q12 PO Last administered on 05/15/17 08:22; Admin Dose 1,000 MG; Start 05/12/17 at 09:00 Tramadol HCl (Ultram) 50 mg BID PRN PO PAIN Last administered on 05/15/17 12: 23; Admin Dose 50 MG; Start 05/12/17 at 03:00 Zolpidem Tartrate (Ambien) 10 mg QHS PRN PO INSOMNIA Last administered on 22:30; Admin Dose 10 MG; Start 05/12/17 at 03:00 Fish Oil (Fish Oil) 1,000 mg DAILY PO Last administered on 05/15/17 08:23; Admin Dose 1,000 MG; Start 05/12/17 at 09:00 Atorvastatin Calcium (Lipitor) 20 mg DAILY@21 PO Last administered on 20:55; Admin Dose 20 MG; Start 05/12/17 at 21:00 Pantoprazole (Protonix Tab) 40 mg DAILY@06 PO Last administered on 05/15/17 06 :24; Admin Dose 40 MG; Start 05/12/17 at 06:00 Nitroglycerin (Nitroglycerin (Sl Tab) 0.4 Mg) 1 tab Q5M PRN SL ANGINA Last administered on 05/12/17 19:09; Admin Dose 1 TAB; Start 05/12/17 at 03:00 Morphine Sulfate (morphine) 2 mg Q4H PRN IV PAIN Last administered on 08:31; Admin Dose 2 MG; Start 05/12/17 at 03:00 Acetaminophen (Tylenol Tab) 650 mg Q6H PRN PO PAIN AND OR ELEVATED TEMP Last administered on 05/12/17 06:49; Admin Dose 650 MG; Start 05/12/17 at 03:00 Ondansetron HCl (Zofran Inj) 4 mg Q4H PRN IV NAUSEA AND/OR VOMITING Last administered on 05/12/17 06:49; Admin Dose 4 MG; Start 05/12/17 at 03:00 Isosorbide Mononitrate (Imdur) 90 mg DAILY PO Last administered on 05/15/17 08 :23; Admin Dose 90 MG; Start 05/13/17 at 09:00 Aspirin (Aspirin) 325 mg DAILY PO Last administered on 05/15/17 08:22; Admin Dose 325 MG; Start 05/14/17 at 09:00 Trimethoprim/ Sulfamethoxazole (Bactrim (Ds)) 1 tab BID PO ; Start 05/15/17 at 14:00 NATHEN DE SOUZA MD May 15, 2017 13:20
--- NOTE | 2017-05-15 14:24 | CONS ---
Date/Time of Note Date/Time of Note DATE: 05/15/17 TIME: 14:22 Assessment/Plan Assessment/Plan Additional Assessment/Plan 1. Chest pain. Assess for acute coronary syndrome.-negative trop x 3 - no CP , doubt ischemia. CXR to follow. 2. History of PTCA and stent placement in February 2017 to anastomotic lesion, saphenous vein graft to right coronary artery. NO CP now, will monitpr now. 3. Coronary artery disease status post prior coronary bypass graft surgery. NO intervention planned now. 4. Hypertension- well Rx, med rx in place. 5. Dyslipidemia. 6. Abnormal electrocardiogram, assess for acute coronary syndrome.-no change on serial ecg Consultation Date/Type/Reason Admit Date/Time May 11, 2017 at 22:38 Type of Consultation: cardiology Referring Provider: KATE MERCADO MD 24 HR Interval Summary Free Text/Dictation NO acute events - reports Left side pain - doubt ischaemia - CXR to follow. Exam/Review of Systems Vital Signs Vitals Vital Signs Date Time Temp Pulse Resp B/P Pulse Ox O2 Delivery O2 Flow Rate FiO2 05/15/17 12:07 60 05/15/17 11:52 98.2 20 107/61 98 05/15/17 04:00 Room Air 05/12/17 07:00 2.0 Intake and Output 05/14/17 05/14/17 05/15/17 15:00 23:00 07:00 Intake Total 1000 ml 420 ml Balance 1000 ml 420 ml Exam General: WN/WD/NAD, AOx 3 HEENT: Unicetric/atraumatic/EOMI (follows commands) NECK: JVD elevated, no thyromegaly Lymph: no lymphadenopathy HEART: regular with no S3, II/ systolic murmur at apex LUNGS: Coarse sounds ABD: soft, NT, ND, +BS : Intact Neuro: non focal SKIN: chronic changes EXT: trace edema Results Result Diagram: 05/14/17 1127 05/15/17 0716 Results 24 hrs Laboratory Tests Test 05/15/17 07:16 Sodium Level 144 Potassium Level 4.3 Chloride Level 106 Carbon Dioxide Level 30 Anion Gap 12 Blood Urea Nitrogen 17 Creatinine 0.98 Glucose Level 102 Calcium Level 9.5 B-Type Natriuretic Peptide 116 Medications Medications Current Medications Carvedilol (Coreg) 3.125 mg BID PO Last administered on 05/15/17t 08:22; Admin Dose 3.125 MG; Start 05/12/17 at 09:00 Clopidogrel Bisulfate (plaVIX) 75 mg DAILY PO Last administered on 05/15/17 08 :23; Admin Dose 75 MG; Start 05/12/17 at 09:00 Docusate Sodium (Colace) 100 mg DAILY PO Last administered on 05/15/17 08:23; Admin Dose 100 MG; Start 05/12/17 at 09:00 Ferrous Sulfate (Ferrous Sulfate (Ec)) 325 mg TID PO Last administered on 12:20; Admin Dose 325 MG; Start 05/12/17 at 09:00 Losartan Potassium (Cozaar) 25 mg DAILY PO Last administered on 05/13/17 08:28 ; Admin Dose 25 MG; Start 05/12/17 at 09:00; Status Future Hold Ranolazine (Ranexa) 1,000 mg Q12 PO Last administered on 05/15/17 08:22; Admin Dose 1,000 MG; Start 05/12/17 at 09:00 Tramadol HCl (Ultram) 50 mg BID PRN PO PAIN Last administered on 05/15/17 12: 23; Admin Dose 50 MG; Start 05/12/17 at 03:00 Zolpidem Tartrate (Ambien) 10 mg QHS PRN PO INSOMNIA Last administered on 22:30; Admin Dose 10 MG; Start 05/12/17 at 03:00 Fish Oil (Fish Oil) 1,000 mg DAILY PO Last administered on 05/15/17 08:23; Admin Dose 1,000 MG; Start 05/12/17 at 09:00 Atorvastatin Calcium (Lipitor) 20 mg DAILY@21 PO Last administered on 20:55; Admin Dose 20 MG; Start 05/12/17 at 21:00 Pantoprazole (Protonix Tab) 40 mg DAILY@06 PO Last administered on 05/15/17 06 :24; Admin Dose 40 MG; Start 05/12/17 at 06:00 Nitroglycerin (Nitroglycerin (Sl Tab) 0.4 Mg) 1 tab Q5M PRN SL ANGINA Last administered on 05/12/17 19:09; Admin Dose 1 TAB; Start 05/12/17 at 03:00 Morphine Sulfate (morphine) 2 mg Q4H PRN IV PAIN Last administered on 08:31; Admin Dose 2 MG; Start 05/12/17 at 03:00 Acetaminophen (Tylenol Tab) 650 mg Q6H PRN PO PAIN AND OR ELEVATED TEMP Last administered on 05/12/17 06:49; Admin Dose 650 MG; Start 05/12/17 at 03:00 Ondansetron HCl (Zofran Inj) 4 mg Q4H PRN IV NAUSEA AND/OR VOMITING Last administered on 05/12/17 06:49; Admin Dose 4 MG; Start 05/12/17 at 03:00 Isosorbide Mononitrate (Imdur) 90 mg DAILY PO Last administered on 05/15/17 08 :23; Admin Dose 90 MG; Start 05/13/17 at 09:00 Aspirin (Aspirin) 325 mg DAILY PO Last administered on 05/15/17 08:22; Admin Dose 325 MG; Start 05/14/17 at 09:00 Trimethoprim/ Sulfamethoxazole (Bactrim (Ds)) 1 tab BID PO ; Start 05/15/17 at 14:00 JUANCARLOS FERNANDEZ MD May 15, 2017 14:24
[2017-05-15] MEDS: TRIMETHOPRIM/SULFAMETHOX (DS) TAB PO SCH ×2 (14:36→20:32)
--- NOTE | 2017-05-15 17:31 | CONS ---
DATE OF ADMISSION: 05/11/2017 DATE OF CONSULTATION: 05/14/2017 HISTORY OF PRESENT ILLNESS: Patient is a 76-year-old female with a history of coronary artery bypass graft, hypertension, dyslipidemia, peptic ulcer disease, presented with chest pain. Patient was evaluated by the poultry trimmer. GI consult was called in for persistent epigastric pain, nausea, and also the CAT scan showed thickening of the gastric mucosa. Patient was interviewed, she continued to complain about abdominal pain and nausea. No GI bleeding. No chest pain. No shortness of breath. PAST MEDICAL HISTORY: Coronary artery disease, underwent PCI in the past. Coronary artery bypass graft. Dyslipidemia. Hypertension. MEDICATIONS: Home medications reviewed. In the hospital, she is on Coreg, Plavix, isosorbide, Losartan, nitroglycerin, Ranexa, tramadol. REVIEW OF SYSTEMS: Otherwise negative. PHYSICAL EXAMINATION: Alert, awake, not in distress. VITAL SIGNS: Stable. HEENT: Unremarkable. NECK: Supple. No thyromegaly. No lymphadenopathy. CARDIOVASCULAR: No murmur, gallop, or click. LUNGS: Clear. ABDOMEN: Soft. Tenderness in epigastric area. Bowel sounds good. No mass felt per abdomen. EXTREMITIES: No edema. NEUROLOGIC: Grossly within normal limits. LABORATORY: Hematocrit is 33, MCV is high at 103. Liver function test all within normal limits. BUN, creatinine also within normal limits. HDL was pretty, 80. Patient had a CAT scan of the abdomen done, which showed cardiomegaly, a gallstone and moderate thickening of the stomach mucosa, most probably related to gastritis, and she had a SPECT cardiac scan which showed a good ejection fraction. IMPRESSION: 1. Abdominal pain and nausea most probably related to her gastritis. 2. Gallstones. 3. Hypertension. 4. Coronary artery disease status post coronary artery bypass graft. 5. Dyslipidemia. 6. Status post PTCA and stent placement in February 2017. PLAN: Continue present care. Patient will continue PPI and if the abdominal pain is persistent then will proceed with EGD.Camron Davis MD Dictated By: Ki Pereyra MD /[email or web address]/barbara /Document#: [id number]
[2017-05-15] MEDS: ATORVASTATIN 20 MG TAB PO SCH (20:32)
[2017-05-15] MEDS: ZOLPIDEM 5 MG TAB PO PRN (22:46)
[2017-05-16] VITALS (9 sets, daily range): BP systolic 102–119; BP diastolic 54–58; PULSE 58–67; RESP 17–18
[2017-05-16] MEDS: PANTOPRAZOLE (EC) 40 MG TAB PO SCH (06:10)
[2017-05-16 07:18] LABS: BASOPHILS % 0.4 % (0.0-2.0); EOSINOPHILS # 0.1 10^3/ul (0.0-0.5); EOSINOPHILS % 2.2 % (0.0-7.0); HEMATOCRIT 35.6 % (37.0-47.0); HEMOGLOBIN 12.3 g/dl (12.0-16.0); LYMPHOCYTES # 1.3 10^3/ul (0.8-2.9); LYMPHOCYTES % 25.8 % (15.0-51.0); MEAN CORPUSCULAR HEMOGLOBIN 35.1 pg (29.0-33.0); MEAN CORPUSCULAR HGB CONC 34.6 g/dl (32.0-37.0); MEAN CORPUSCULAR VOLUME 101.7 fl (82.0-101.0); MEAN PLATELET VOLUME 9.7 fl (7.4-10.4); MONOCYTE # 0.4 10^3/ul (0.3-0.9); MONOCYTES % 7.9 % (0.0-11.0); NEUTROPHIL # 3.1 10^3/ul (1.6-7.5); NEUTROPHILS % 63.3 % (39.0-77.0); PLATELET COUNT 246 10^3/UL (140-415); RED CELL DISTRIBUTION WIDTH 11.5 % (11.5-14.5); WHITE BLOOD COUNT 4.9 10^3/ul (4.8-10.8)
[2017-05-16 07:43] LABS: CALCIUM 9.7 mg/dl (8.4-10.2); CREATININE 1.04 mg/dl (0.44-1.00); POTASSIUM 4.3 mmol/L (3.5-5.1)
[2017-05-16] MEDS: ISOSORBIDE MONONITRATE(SR)30 MG TAB PO SCH (08:42)
[2017-05-16] MEDS: RANOLAZINE (SR) 500 MG TAB PO SCH (08:42)
[2017-05-16] MEDS: CLOPIDOGREL 75 MG TAB PO SCH (08:42)
[2017-05-16] MEDS: FISH OIL 1,000 MG CAP PO SCH (08:42)
[2017-05-16] MEDS: TRIMETHOPRIM/SULFAMETHOX (DS) TAB PO SCH (08:42)
[2017-05-16] MEDS: ASPIRIN 325 MG TAB PO SCH (08:42)
[2017-05-16] MEDS: DOCUSATE SODIUM 100 MG CAP PO SCH (08:42)
[2017-05-16] MEDS: FERROUS SULFATE (EC) 325 MG TAB PO SCH ×2 (08:42→12:48)
--- NOTE | 2017-05-16 12:46 | CONS ---
Date/Time of Note Date/Time of Note DATE: 05/16/17 TIME: 12:45 Assessment/Plan Assessment/Plan Additional Assessment/Plan IMPRESSION: 1. Abdominal pain and nausea most probably related to her gastritis. 2. Gallstones. 3. Hypertension. 4. Coronary artery disease status post coronary artery bypass graft. 5. Dyslipidemia. 6. Status post PTCA and stent placement in February 2017. Plan Continue with PPI Tylenol for the back pain in the local therapy. If abdominal pain persists then will do EGD as outpatient Consultation Date/Type/Reason Admit Date/Time May 11, 2017 at 22:38 Type of Consultation: cardiology Referring Provider: KATE MERCADO MD 24 HR Interval Summary Free Text/Dictation Patient mainly has a back pain Exam/Review of Systems Vital Signs Vitals Vital Signs Date Time Temp Pulse Resp B/P Pulse Ox O2 Delivery O2 Flow Rate FiO2 05/16/17 12:09 58 05/16/17 11:47 98.2 17 119/58 96 05/15/17 04:00 Room Air 05/12/17 07:00 2.0 Intake and Output 05/15/17 05/15/17 05/16/17 15:00 23:00 07:00 Intake Total 1200 ml 400 ml Balance 1200 ml 400 ml Exam Constitutional: alert, oriented, well developed Psych: nl mood/affect, no complaints Head: atraumatic, normocephalic Eyes: EOMI, PERRL, nl conjunctiva, nl lids, nl sclera ENMT: nl external ears & nose, nl lips & teeth, nl nasal mucosa & septum Neck: non-tender, supple Respiratory: clear to auscultation, normal air movement Cardiovascular: nl pulses, regular rate and rhythm Gastrointestinal: nl liver, spleen, non-tender, soft Musculoskeletal: nl extremities to inspection, nl gait and stance Extremities: normal pulses Neurological: [employer] II-XII intact, nl mental status, nl speech, nl strength Skin: nl turgor, No rash or lesions Lymph: nl lymph nodes Results Result Diagram: 05/16/17 0634 05/16/17 0634 Results 24 hrs Laboratory Tests Test 05/16/17 06:34 White Blood Count 4.9 # Red Blood Count 3.50 L Hemoglobin 12.3 Hematocrit 35.6 L Mean Corpuscular Volume 101.7 H Mean Corpuscular Hemoglobin 35.1 H Mean Corpuscular Hemoglobin Concent 34.6 Red Cell Distribution Width 11.5 Platelet Count 246 Mean Platelet Volume 9.7 Neutrophils % 63.3 Lymphocytes % 25.8 Monocytes % 7.9 Eosinophils % 2.2 Basophils % 0.4 Nucleated Red Blood Cells % 0.0 Neutrophils # 3.1 Lymphocytes # 1.3 Monocytes # 0.4 Eosinophils # 0.1 Basophils # 0.0 Nucleated Red Blood Cells # 0.0 Sodium Level 141 Potassium Level 4.3 Chloride Level 106 Carbon Dioxide Level 25 Anion Gap 14 Blood Urea Nitrogen 18 Creatinine 1.04 H Glucose Level 90 Calcium Level 9.7 Medications Medications Current Medications Carvedilol (Coreg) 3.125 mg BID PO Last administered on 05/16/17 08:42; Admin Dose 3.125 MG; Start 05/12/17 at 09:00 Clopidogrel Bisulfate (plaVIX) 75 mg DAILY PO Last administered on 05/16/17 08 :42; Admin Dose 75 MG; Start 05/12/17 at 09:00 Docusate Sodium (Colace) 100 mg DAILY PO Last administered on 05/16/17 08:42; Admin Dose 100 MG; Start 05/12/17 at 09:00 Ferrous Sulfate (Ferrous Sulfate (Ec)) 325 mg TID PO Last administered on 08:42; Admin Dose 325 MG; Start 05/12/17 at 09:00 Losartan Potassium (Cozaar) 25 mg DAILY PO Last administered on 05/13/17 08:28 ; Admin Dose 25 MG; Start 05/12/17 at 09:00; Status Future Hold Ranolazine (Ranexa) 1,000 mg Q12 PO Last administered on 05/16/17 08:42; Admin Dose 1,000 MG; Start 05/12/17 at 09:00 Tramadol HCl (Ultram) 50 mg BID PRN PO PAIN Last administered on 05/15/17 20: 37; Admin Dose 50 MG; Start 05/12/17 at 03:00 Zolpidem Tartrate (Ambien) 10 mg QHS PRN PO INSOMNIA Last administered on 22:46; Admin Dose 10 MG; Start 05/12/17 at 03:00 Fish Oil (Fish Oil) 1,000 mg DAILY PO Last administered on 05/16/17 08:42; Admin Dose 1,000 MG; Start 05/12/17 at 09:00 Atorvastatin Calcium (Lipitor) 20 mg DAILY@21 PO Last administered on 20:32; Admin Dose 20 MG; Start 05/12/17 at 21:00 Pantoprazole (Protonix Tab) 40 mg DAILY@06 PO Last administered on 05/16/17 06 :10; Admin Dose 40 MG; Start 05/12/17 at 06:00 Nitroglycerin (Nitroglycerin (Sl Tab) 0.4 Mg) 1 tab Q5M PRN SL ANGINA Last administered on 05/12/17 19:09; Admin Dose 1 TAB; Start 05/12/17 at 03:00 Morphine Sulfate (morphine) 2 mg Q4H PRN IV PAIN Last administered on 08:31; Admin Dose 2 MG; Start 05/12/17 at 03:00 Acetaminophen (Tylenol Tab) 650 mg Q6H PRN PO PAIN AND OR ELEVATED TEMP Last administered on 05/12/17 06:49; Admin Dose 650 MG; Start 05/12/17 at 03:00 Ondansetron HCl (Zofran Inj) 4 mg Q4H PRN IV NAUSEA AND/OR VOMITING Last administered on 05/12/17 06:49; Admin Dose 4 MG; Start 05/12/17 at 03:00 Isosorbide Mononitrate (Imdur) 90 mg DAILY PO Last administered on 05/15/17 08 :23; Admin Dose 90 MG; Start 05/13/17 at 09:00 Aspirin (Aspirin) 325 mg DAILY PO Last administered on 05/16/17 08:42; Admin Dose 325 MG; Start 05/14/17 at 09:00 Trimethoprim/ Sulfamethoxazole (Bactrim (Ds)) 1 tab BID PO Last administered on 05/16/17 08:42; Admin Dose 1 TAB; Start 05/15/17 at 14:00 NATHEN DE SOUZA MD May 16, 2017 12:46
[2017-05-16] MEDS: traMADol 50 MG TAB PO PRN (12:48)
--- NOTE | 2017-05-16 13:32 | CONS ---
Date/Time of Note Date/Time of Note DATE: 05/16/17 TIME: 13:31 Assessment/Plan Assessment/Plan Additional Assessment/Plan 1. Chest pain. Assess for acute coronary syndrome.-negative trop x 3 - no CP , doubt ischemia. R/O ME. 2. History of PTCA and stent placement in February 2017 to anastomotic lesion, saphenous vein graft to right coronary artery. NO CP now, will monitpr now. 3. Coronary artery disease status post prior coronary bypass graft surgery. 4. Hypertension- well Rx, med rx in place. 5. Dyslipidemia. 6. Abnormal electrocardiogram, assess for acute coronary syndrome.-no change on serial ecg 7. abd pain - per GI, likely gastritis Consultation Date/Type/Reason Admit Date/Time May 11, 2017 at 22:38 Type of Consultation: cardiology Referring Provider: KATE MERCADO MD 24 HR Interval Summary Free Text/Dictation NO acute events, rate controlled ROS: No fever, no chills, no nausea, no vomiting, no diarrhea/constipation No recent weight changes No chest pain, no PND, no orthopnea No dizziness, blurred vision No thirst, no heat or cold intolerance Exam/Review of Systems Vital Signs Vitals Vital Signs Date Time Temp Pulse Resp B/P Pulse Ox O2 Delivery O2 Flow Rate FiO2 05/16/17 12:09 58 05/16/17 11:47 98.2 17 119/58 96 05/15/17 04:00 Room Air 05/12/17 07:00 2.0 Intake and Output 05/15/17 05/15/17 05/16/17 15:00 23:00 07:00 Intake Total 1200 ml 400 ml Balance 1200 ml 400 ml Exam General: WN/WD/NAD, AOx 3 HEENT: Unicetric/atraumatic/EOMI (follow commands) NECK: JVD elevated, no thyromegaly Lymph: no lymphadenopathy HEART: regular with no S3, II/ systolic murmur at apex LUNGS: Coarse sounds ABD: soft, NT, ND, +BS : Intact Neuro: non focal SKIN: chronic changes EXT: trace edema Results Result Diagram: 05/16/17 0634 05/16/17 0634 Results 24 hrs Laboratory Tests Test 05/16/17 06:34 White Blood Count 4.9 # Red Blood Count 3.50 L Hemoglobin 12.3 Hematocrit 35.6 L Mean Corpuscular Volume 101.7 H Mean Corpuscular Hemoglobin 35.1 H Mean Corpuscular Hemoglobin Concent 34.6 Red Cell Distribution Width 11.5 Platelet Count 246 Mean Platelet Volume 9.7 Neutrophils % 63.3 Lymphocytes % 25.8 Monocytes % 7.9 Eosinophils % 2.2 Basophils % 0.4 Nucleated Red Blood Cells % 0.0 Neutrophils # 3.1 Lymphocytes # 1.3 Monocytes # 0.4 Eosinophils # 0.1 Basophils # 0.0 Nucleated Red Blood Cells # 0.0 Sodium Level 141 Potassium Level 4.3 Chloride Level 106 Carbon Dioxide Level 25 Anion Gap 14 Blood Urea Nitrogen 18 Creatinine 1.04 H Glucose Level 90 Calcium Level 9.7 Medications Medications Current Medications Carvedilol (Coreg) 3.125 mg BID PO Last administered on 05/16/17 08:42; Admin Dose 3.125 MG; Start 05/12/17 at 09:00 Clopidogrel Bisulfate (plaVIX) 75 mg DAILY PO Last administered on 05/16/17 08 :42; Admin Dose 75 MG; Start 05/12/17 at 09:00 Docusate Sodium (Colace) 100 mg DAILY PO Last administered on 05/16/17 08:42; Admin Dose 100 MG; Start 05/12/17 at 09:00 Ferrous Sulfate (Ferrous Sulfate (Ec)) 325 mg TID PO Last administered on 12:48; Admin Dose 325 MG; Start 05/12/17 at 09:00 Losartan Potassium (Cozaar) 25 mg DAILY PO Last administered on 05/13/17 08:28 ; Admin Dose 25 MG; Start 05/12/17 at 09:00; Status Future Hold Ranolazine (Ranexa) 1,000 mg Q12 PO Last administered on 05/16/17 08:42; Admin Dose 1,000 MG; Start 05/12/17 at 09:00 Tramadol HCl (Ultram) 50 mg BID PRN PO PAIN Last administered on 05/16/17 12: 48; Admin Dose 50 MG; Start 05/12/17 at 03:00 Zolpidem Tartrate (Ambien) 10 mg QHS PRN PO INSOMNIA Last administered on 22:46; Admin Dose 10 MG; Start 05/12/17 at 03:00 Fish Oil (Fish Oil) 1,000 mg DAILY PO Last administered on 05/16/17 08:42; Admin Dose 1,000 MG; Start 05/12/17 at 09:00 Atorvastatin Calcium (Lipitor) 20 mg DAILY@21 PO Last administered on 20:32; Admin Dose 20 MG; Start 05/12/17 at 21:00 Pantoprazole (Protonix Tab) 40 mg DAILY@06 PO Last administered on 05/16/17 06 :10; Admin Dose 40 MG; Start 05/12/17 at 06:00 Nitroglycerin (Nitroglycerin (Sl Tab) 0.4 Mg) 1 tab Q5M PRN SL ANGINA Last administered on 05/12/17 19:09; Admin Dose 1 TAB; Start 05/12/17 at 03:00 Morphine Sulfate (morphine) 2 mg Q4H PRN IV PAIN Last administered on 08:31; Admin Dose 2 MG; Start 05/12/17 at 03:00 Acetaminophen (Tylenol Tab) 650 mg Q6H PRN PO PAIN AND OR ELEVATED TEMP Last administered on 05/12/17 06:49; Admin Dose 650 MG; Start 05/12/17 at 03:00 Ondansetron HCl (Zofran Inj) 4 mg Q4H PRN IV NAUSEA AND/OR VOMITING Last administered on 05/12/17 06:49; Admin Dose 4 MG; Start 05/12/17 at 03:00 Isosorbide Mononitrate (Imdur) 90 mg DAILY PO Last administered on 05/15/17 08 :23; Admin Dose 90 MG; Start 05/13/17 at 09:00 Aspirin (Aspirin) 325 mg DAILY PO Last administered on 05/16/17 08:42; Admin Dose 325 MG; Start 05/14/17 at 09:00 Trimethoprim/ Sulfamethoxazole (Bactrim (Ds)) 1 tab BID PO Last administered on 05/16/17 08:42; Admin Dose 1 TAB; Start 05/15/17 at 14:00 JUANCARLOS FERNANDEZ MD May 16, 2017 13:32
--- NOTE | 2017-05-16 14:59 | RADRPT ---
PROCEDURE: Renal US. CLINICAL INDICATION: Back pain and costovertebral angle tenderness. TECHNIQUE: Multiple sonographic images of the kidneys and urinary bladder were obtained. The imag es were reviewed on a PACS workstation. COMPARISON: No prior studies are available for comparison. FINDINGS: The right kidney measures 9.3 cm. The left kidney measures 9.4 cm. There is no renal mass. There is no hydronephrosis. There is no renal calculus. Renal parenchymal thickness is normal bilaterally. Echogenicity is normal bilaterally. The perirenal regions are normal with no fluid collection or mass. The urinary bladder is empty. IMPRESSION: 1. Empty urinary bladder. 2. Otherwise unremarkable renal ultrasound. RPTAT: QQ .Sarthak Ochoa MD, MD Date Time Electronically viewed and signed by .Sarthak Ochoa MD, on 05/16/2017 14:58 .R/
--- NOTE | 2017-05-16 17:16 | PDOCDIS ---
Discharge Instructions CONDITION Patient Condition: Stable HOME CARE INSTRUCTIONS: Special Diet: Cardiac ACTIVITY: Activity Restrictions: Slowly Increase Activity FOLLOW UP/APPOINTMENTS Follow-up Plan f/u pcp [address] pineda next wk see dr palomares 1 wk KATE MERCADO MD May 16, 2017 17:16
[2017-05-16] MEDS ORDERED: PANT40TA4 PO (17:24)
[2017-05-16] MEDS ORDERED: ASPI325T4 PO (17:24)
[2017-05-16] MEDS ORDERED: TRAM50TA2 PO (17:24)
--- NOTE | 2017-05-16 19:04 | PN ---
Date/Time of Note Date/Time of Note DATE: 05/16/17 TIME: 19:03 Assessment/Plan VTE Prophylaxis VTE Prophylaxis Intervention: other Lines/Catheters [facility] [place] [facility] Urinary Cath still in place: No Assessment/Plan Chief Complaint/Hosp Course IMPRESSION: 1. Abdominal pain.BETTER 2. Chest pain. AK R/O 3. Cholelithiasis. 4. cad disease. 5. Hypertension. 6. dyslipidemia. 7. s/p cabg 8 s/p cath and pci 9 GASTRITIS PLAN HOME Problems: Subjective 24 Hr Interval Summary Cardiovascular: no complaints Gastrointestinal: no complaints Musculoskeletal: other (RIB PAIN+) Exam/Review of Systems Vital Signs Vitals Vital Signs Date Time Temp Pulse Resp B/P Pulse Ox O2 Delivery O2 Flow Rate FiO2 05/16/17 16:07 59 05/16/17 15:39 98.3 18 102/54 100 05/15/17 04:00 Room Air 05/12/17 07:00 2.0 Intake and Output 05/15/17 05/15/17 05/16/17 15:00 23:00 07:00 Intake Total 1200 ml 400 ml Balance 1200 ml 400 ml Exam Neck: supple Respiratory: clear to auscultation Cardiovascular: regular rate and rhythm Gastrointestinal: soft Musculoskeletal: nl extremities to inspection Results Result Diagram: 05/16/17 0634 05/16/17 0634 Results 24 hrs Laboratory Tests Test 05/16/17 06:34 White Blood Count 4.9 # Red Blood Count 3.50 L Hemoglobin 12.3 Hematocrit 35.6 L Mean Corpuscular Volume 101.7 H Mean Corpuscular Hemoglobin 35.1 H Mean Corpuscular Hemoglobin Concent 34.6 Red Cell Distribution Width 11.5 Platelet Count 246 Mean Platelet Volume 9.7 Neutrophils % 63.3 Lymphocytes % 25.8 Monocytes % 7.9 Eosinophils % 2.2 Basophils % 0.4 Nucleated Red Blood Cells % 0.0 Neutrophils # 3.1 Lymphocytes # 1.3 Monocytes # 0.4 Eosinophils # 0.1 Basophils # 0.0 Nucleated Red Blood Cells # 0.0 Sodium Level 141 Potassium Level 4.3 Chloride Level 106 Carbon Dioxide Level 25 Anion Gap 14 Blood Urea Nitrogen 18 Creatinine 1.04 H Glucose Level 90 Calcium Level 9.7 Medications Medications Current Medications Carvedilol (Coreg) 3.125 mg BID PO Last administered on 05/16/17 08:42; Admin Dose 3.125 MG; Start 05/12/17 at 09:00 Clopidogrel Bisulfate (plaVIX) 75 mg DAILY PO Last administered on 05/16/17 08 :42; Admin Dose 75 MG; Start 05/12/17 at 09:00 Docusate Sodium (Colace) 100 mg DAILY PO Last administered on 05/16/17 08:42; Admin Dose 100 MG; Start 05/12/17 at 09:00 Ferrous Sulfate (Ferrous Sulfate (Ec)) 325 mg TID PO Last administered on 12:48; Admin Dose 325 MG; Start 05/12/17 at 09:00 Losartan Potassium (Cozaar) 25 mg DAILY PO Last administered on 05/13/17 08:28 ; Admin Dose 25 MG; Start 05/12/17 at 09:00; Status Future Hold Ranolazine (Ranexa) 1,000 mg Q12 PO Last administered on 05/16/17 08:42; Admin Dose 1,000 MG; Start 05/12/17 at 09:00 Tramadol HCl (Ultram) 50 mg BID PRN PO PAIN Last administered on 05/16/17 12: 48; Admin Dose 50 MG; Start 05/12/17 at 03:00 Zolpidem Tartrate (Ambien) 10 mg QHS PRN PO INSOMNIA Last administered on 22:46; Admin Dose 10 MG; Start 05/12/17 at 03:00 Fish Oil (Fish Oil) 1,000 mg DAILY PO Last administered on 05/16/17 08:42; Admin Dose 1,000 MG; Start 05/12/17 at 09:00 Atorvastatin Calcium (Lipitor) 20 mg DAILY@21 PO Last administered on 20:32; Admin Dose 20 MG; Start 05/12/17 at 21:00 Pantoprazole (Protonix Tab) 40 mg DAILY@06 PO Last administered on 05/16/17 06 :10; Admin Dose 40 MG; Start 05/12/17 at 06:00 Nitroglycerin (Nitroglycerin (Sl Tab) 0.4 Mg) 1 tab Q5M PRN SL ANGINA Last administered on 05/12/17 19:09; Admin Dose 1 TAB; Start 05/12/17 at 03:00 Morphine Sulfate (morphine) 2 mg Q4H PRN IV PAIN Last administered on 08:31; Admin Dose 2 MG; Start 05/12/17 at 03:00 Acetaminophen (Tylenol Tab) 650 mg Q6H PRN PO PAIN AND OR ELEVATED TEMP Last administered on 05/12/17 06:49; Admin Dose 650 MG; Start 05/12/17 at 03:00 Ondansetron HCl (Zofran Inj) 4 mg Q4H PRN IV NAUSEA AND/OR VOMITING Last administered on 05/12/17 06:49; Admin Dose 4 MG; Start 05/12/17 at 03:00 Isosorbide Mononitrate (Imdur) 90 mg DAILY PO Last administered on 05/15/17 08 :23; Admin Dose 90 MG; Start 05/13/17 at 09:00 Aspirin (Aspirin) 325 mg DAILY PO Last administered on 05/16/17 08:42; Admin Dose 325 MG; Start 05/14/17 at 09:00 Trimethoprim/ Sulfamethoxazole (Bactrim (Ds)) 1 tab BID PO Last administered on 05/16/17 08:42; Admin Dose 1 TAB; Start 05/15/17 at 14:00 KATE MERCADO MD May 16, 2017 19:04
== END 2017-05-16 19:15 | disposition home or self-care (01) | DRG 313 ==
LOC: E/R 19:10 → MS4 22:38
PROVIDERS: ADMIT Internal Medicine Nephrology; ATTEND Internal Medicine Nephrology
DX: R07.9 Chest pain, unspecified (principal); I25.2 Old myocardial infarction; N39.0 Urinary tract infection, site not specified; K21.9 Gastro-esophageal reflux disease without esophagitis; Z95.1 Presence of aortocoronary bypass graft; Z95.5 Presence of coronary angioplasty implant and graft; K80.20 Calculus of gallbladder without cholecystitis without obstruction
CPT/HCPCS: 36415; 71010; 71275; 76775; 78452; 80048; 80053; 80061; 81001; 82550; 82553; 82962; 83690; 83880; 84484; 85025; 93005; 93017; 96374; A9500; A9505; J2270; J2405; J2785; Q9967

== ENCOUNTER 2017-10-15 04:11 | Inpatient (IN) | END 2017-10-16 19:10 | disposition home or self-care (01) | DRG 313 ==

== ENCOUNTER 2017-12-19 15:55 | Emergency (ER) | END 2017-12-19 20:45 | disposition home or self-care (01) ==

== ENCOUNTER 2018-03-06 19:28 | Emergency (ER) | END 2018-03-07 01:20 | disposition home or self-care (01) ==

== ENCOUNTER 2018-07-26 21:50 | Emergency (ER) | END 2018-07-27 01:48 | disposition home or self-care (01) ==

== ENCOUNTER 2018-10-29 13:49 | Emergency (ER) | payer MEDICARE, BC ==
[~2018-10-29] VITALS: Ht 152.4 cm; Wt 56.8 kg
[~2018-10-29 13:49] MED LIST changes: +ASPI-535 PO; -ASPI-664 PO; +ATOR40TA68 PO; +BACL10TA PO; -CARV3.1260 PO; +GABA300C16 PO; -ISOS10TA2 PO; +ISOS60TA PO; +LOSA25TA12 PO; -LOSA25TA2 PO; +NITR0.4T32 SL; -OMEP20CA16 PO; +PANT40TA4 PO; +RANO10002 PO; -SIMV40TA3 PO
[2018-10-29 14:11] VITALS: Ht 152.4 cm; Wt 56.8 kg
[2018-10-29] MEDS ORDERED: ONDANSETRON 4 MG INJ IV STA (14:43)
[2018-10-29] MEDS ORDERED: SOD CHLORIDE 0.9% 1,000 ML IV STA ×2 (14:43→18:43)
[2018-10-29] MEDS ORDERED: morphine 2 MG INJ IV STA (14:43)
[2018-10-29] MEDS ORDERED: KETOROLAC 15 MG INJ IV STA (17:08)
[2018-10-29] MEDS ORDERED: IBUP-1542 PO (17:46)
--- NOTE | 2018-10-29 18:18 | ERD ---
ER Documentation Chief Complaint Chief Complaint PELVIC PAIN X 3 DAYS WITH DYSURIA HPI This is an 78-year-old female who presents to the emergency department complaining of 3 days of pelvic pain. She indicates the pain began in the right upper quadrant and started to radiate to the right lower quadrant. She did state that the pain in the right upper quadrant did radiate to her back. She had a previous appendectomy. She states there is no alleviating or exacerbating factors to the pain. She is complaining of mild dysuria but no frequency or urgency. No gross hematuria. She states she is never had any similar pain like this in the past. She had no fevers or shaking or chills. She denies a headache. She denies any shortness of breath at rest or exertion. ROS All systems reviewed and are negative except as per history of present illness. Medications Home Meds Active Scripts Ibuprofen* (Motrin*) 600 Mg Tab, 600 MG PO Q8, #30 TAB Prov:JANE LOW MD 10/29/18 Tramadol HCl (Tramadol HCl) 50 Mg Tablet, 50 MG PO Q6, #20 TAB Prov:FLETCHER BRADY 07/27/18 Gabapentin* (Gabapentin*) 300 Mg Capsule, 300 MG PO TID, #90 CAP Prov:JACKY HERNANDEZ DO 03/07/18 Pantoprazole* (Pantoprazole*) 40 Mg Tablet.dr, 40 MG PO DAILY@06 for 28 Days Prov:KATE MERCADO MD 05/16/17 Ranolazine* (Ranexa*) 500 Mg Tab.sr.12h, 1000 MG PO Q12 for 28 Days, TAB Prov:KATE MERCADO MD 04/04/17 [place]-3 Fatty Acids/Fish Oil (Fish Oil 1,000 mg Capsule) 1 Each Capsule, 1 EACH PO DAILY for 28 Days, CAP Prov:KATE MERCADO MD 04/04/17 Reported Medications Nitroglycerin* (Nitroglycerin* SL) 0.4 Mg Tab.subl, 0.4 MG SL Q5MIN PRN for CHEST PAIN, BOTTLE 07/26/18 Atorvastatin* (Atorvastatin*) 40 Mg Tablet, 40 MG PO QHS, #30 TAB 07/26/18 Ranolazine* (Ranexa*) 1,000 Mg Tab.sr.12h, 1000 MG PO Q12, TAB 07/26/18 Gabapentin* (Gabapentin*) 300 Mg Capsule, 300 MG PO TID, #90 CAP 07/26/18 Losartan Potassium* (Losartan Potassium*) 25 Mg Tablet, 25 MG PO DAILY, TAB 12/19/17 Amlodipine Besylate* (Amlodipine Besylate*) 2.5 Mg Tablet, 2.5 MG PO DAILY, #30 TAB 10/15/17 Baclofen* (Baclofen*) 10 Mg Tablet, 10 MG PO DAILY, TAB 10/15/17 Aspirin Ec (Aspir 81) 81 Mg Tablet.dr, 81 MG PO DAILY, #30 TAB 10/15/17 Isosorbide Mononitrate* (Isosorbide Mononitrate*) 60 Mg Tab.er.24h, 60 MG PO DAILY, TAB 05/11/17 Ferrous Sulfate* (Ferrous Sulfate*) 325 Mg Tabec, 325 MG PO DAILY, TAB 04/01/17 Docusate Sodium* (Docusate Sodium*) 100 Mg Capsule, 100 MG PO DAILY, #30 CAP 04/01/17 Clopidogrel Bisulfate (Clopidogrel) 75 Mg Tablet, 75 MG PO DAILY, #30 TAB 03/14/17 Zolpidem Tartrate* (Zolpidem Tartrate*) 10 Mg Tablet, 5 MG PO QHS PRN for INSOMNIA, #30 TAB 08/05/16 Allergies Allergies: Coded Allergies: No Known Drug Allergies (Verified Allergy, Mild, 10/29/18) PMhx/Soc History of Surgery: Yes (CABG, , APPY) Anesthesia Reaction: No Hx Neurological Disorder: No Hx Respiratory Disorders: No Hx Cardiac Disorders: Yes (CAD, HTN, HDL) Hx Psychiatric Problems: No Hx Miscellaneous Medical Probl: No Hx Alcohol Use: No Hx Substance Use: No Hx Tobacco Use: No Smoking Status: Never smoker Physical Exam Vitals Vital Signs Date Temp Pulse Resp B/P (MAP) Pulse Ox O2 O2 Flow FiO2 Time Delivery Rate 10/29/18 98.1 68 18 106/72 98 Room Air 16:13 (83) 10/29/18 97.7 77 19 114/60 99 14:11 (78) Physical Exam Constitutional:Well-developed. Well-nourished. Patient appears much younger than stated age. HEENT:Normocephalic. Atraumatic.Pupils were equal round reactive to light. Moist mucous membranes.No tonsillar exudates. Neck: No nuchal rigidity. No lymphadenopathy. No posterior cervical spine tenderness or step-offs. Respiratory: Not using accessory muscles of respiration.Lungs were clear to auscultation bilaterally. No rhonchi. No rales. No wheezing. Cardiovascular: Regular rate regular rhythm.No murmurs. No rubs were appreciated.S1, S2 normal. Distal pulses are palpable 2+ bilaterally. GI: Abdomen was soft. Mild tenderness in the right upper quadrant. Tenderness in the right lower quadrant. Patient had previous scar from appendectomy. No CVA tenderness. No suprapubic tenderness.. Non Distended. No pulsatile abdominal masses or bruits. No rebound. No guarding. Bowel sounds were present and normal. Muscle skeletal: Full range of motion of both the upper and lower extremities bilaterally.Normal muscle tone.No assymetrical calf tenderness or swelling. Skin: No petechia, no purpura. No lesions on the palms or the soles of the feet. No maculopapular rash. NEURO: Patient was alert, awake, orientated x3.No facial droop. Gait observed and normal with no ataxia.Speech had regular rate and rhythm. No focal neurological deficits. Result Diagram: 10/29/18 1452 10/29/18 1451 Results 24 hrs Laboratory Tests Test 10/29/18 14:51 10/29/18 14:52 Prothrombin Time 12.1 Sec Prothrombin Time Ratio 0.9 INR International Normalized Ratio 0.89 Activated Partial Thromboplast Time 30.3 Sec Sodium Level 142 mmol/L Potassium Level 4.2 mmol/L Chloride Level 106 mmol/L Carbon Dioxide Level 29 mmol/L Anion Gap 7 Blood Urea Nitrogen 20 mg/dl Creatinine 0.82 mg/dl Est Glomerular Filtrat Rate mL/min mL/min Glucose Level 113 mg/dl Calcium Level 9.3 mg/dl Total Bilirubin 0.2 mg/dl Direct Bilirubin 0.00 mg/dl Indirect Bilirubin 0.2 mg/dl Aspartate Amino Transf (AST/SGOT) 20 IU/L Alanine Aminotransferase (ALT/SGPT) 8 IU/L Alkaline Phosphatase 76 IU/L Troponin I 0.014 ng/ml Total Protein 7.3 g/dl Albumin 4.3 g/dl Globulin 3.00 g/dl Albumin/Globulin Ratio 1.43 Amylase Level 103 U/L Lipase 67 U/L White Blood Count 4.4 10^3/ul Red Blood Count 3.49 10^6/ul Hemoglobin 12.0 g/dl Hematocrit 36.4 % Mean Corpuscular Volume 104.3 fl Mean Corpuscular Hemoglobin 34.4 pg Mean Corpuscular Hemoglobin Concent 33.0 g/dl Red Cell Distribution Width 12.0 % Platelet Count 210 10^3/UL Mean Platelet Volume 9.8 fl Immature Granulocytes % 0.200 % Neutrophils % 60.9 % Lymphocytes % 28.6 % Monocytes % 8.0 % Eosinophils % 1.8 % Basophils % 0.5 % Nucleated Red Blood Cells % 0.0 /100WBC Immature Granulocytes # 0.010 10^3/ul Neutrophils # 2.7 10^3/ul Lymphocytes # 1.3 10^3/ul Monocytes # 0.4 10^3/ul Eosinophils # 0.1 10^3/ul Basophils # 0.0 10^3/ul Nucleated Red Blood Cells # 0.0 10^3/ul Urine Color YELLOW Urine Clarity CLEAR Urine pH 5.0 Urine Specific Harris 1.010 Urine Ketones NEGATIVE mg/dL Urine Nitrite NEGATIVE mg/dL Urine Bilirubin NEGATIVE mg/dL Urine Urobilinogen NEGATIVE mg/dL Urine Leukocyte Esterase NEGATIVE Cheli/ul Urine Hemoglobin NEGATIVE mg/dL Urine Glucose NEGATIVE mg/dL Urine Total Protein NEGATIVE mg/dl Current Medications Medications Dose Sig/Edward Start Time Status Last (Trade) Ordered Route PRN Stop Time Admin Dose Reason Admin Sodium 1,000 ml @ Q1H STAT 10/29/18 DC 10/29/18 Chloride 1,000 mls/hr IV 14:43 10/29/18 15:01 15:42 Morphine 2 mg ONCE STAT 10/29/18 DC Sulfate IV 14:43 10/29/18 (morphine) 14:44 Ondansetron 4 mg ONCE STAT 10/29/18 DC HCl (Zofran IV 14:43 10/29/18 Inj) 14:44 Ketorolac 15 mg ONCE STAT 10/29/18 DC 10/29/18 Tromethamine IV 17:08 10/29/18 17:44 (Toradol) 17:11 Procedures/MDM This patient presented to the emergency department with abdominal pain and was seen and evaluated by myself. My differential diagnosis included but was not limited to abdominal aortic aneurysm, appendicitis, pancreatitis, perforated p eptic ulcer, perforated viscus, Boerhaaves syndrome or visceral pain such as diverticulitis, DKA, esophagitis, hepatitis or bowel obstruction. The patient was placed on a cardiac rn, continuous pulse oximetry, and IV access was established by nursing staff. The patient was refusing morphine but did states she would agree to Toradol. Given her age and only administer 15 mg intravenously was given a liter bolus of normal saline. I do feel is necessary to obtain a 12-lead EKG tracing to rule out for atypical microinfarction. 12 Lead EKG tracing ordered and reviewed by myself showed: Normal sinus rhythm of 67 bpm and no arrhythmia. VT interval prolonged at 220 ms with first-degree AV block. QRS duration normal. No ST segment elevation No ST segment depression. No changes consistent with acute ischemia. Observation Note: Time: 4 hours Family Hx: No Hypertension Evaluation: Multiple exams showed improving symptoms and no evidence of worsening of her symptoms. I did obtain a CT scan of the abdomen and there is no signs of obstructive uropathy small bowel obstruction or a mass. However the patient did have a stone within the neck of the gallbladder. I did feel this could have exacerbated her symptoms. However she felt comfortable being discharged home and will follow up with her primary care physician. Patient no severe loculate abnormalities. There is no evidence of a urinary tract infection. The patient was discharged home in fair condition. They were instruc luis m to return to the emergency department at any time if there was any worsening of their condition. The patient stated they would follow up with their PCP in the next 24-48 hours to initiate a suitable medication regimen under the care of their PCP as well as to allow their PCP to monitor any drug reactions. The patient was discharged home with prescriptions after they gave informed consent to the new medication. They were also fully informed by myself on the adverse effects and adverse drug interactions in order to provide adequate safeguards to prevent possible adverse reactions to medications. Departure Diagnosis: Primary Impression: Cholelithiasis Cholelithiasis location: other site Biliary obstruction: without biliary obstruction Qualified Codes: K80.80 - Other cholelithiasis without obstruction Condition: Fair Patient Instructions: Gallstones JANE LOW MD Oct 29, 2018 18:18
[2018-10-29 19:43] VITALS: BP 129/82; PULSE 71; RESP 15
== END 2018-10-29 19:43 | disposition home or self-care (01) ==
LOC: E/R 13:49
DX: K80.80 Other cholelithiasis without obstruction (principal); I10 Essential (primary) hypertension; I25.10 Atherosclerotic heart disease of native coronary artery without angina pectoris; Z79.01 Long term (current) use of anticoagulants; Z79.82 Long term (current) use of aspirin; Z95.1 Presence of aortocoronary bypass graft
CPT/HCPCS: 74176; 80053; 81003; 82150; 83690; 84484; 85025; 85610; 85730; 87086; 93005; 96361; 96374; 99285; J1885; J7030

== ENCOUNTER 2018-11-26 22:22 | Inpatient (IN) | payer MEDICARE, BC ==
[~2018-11-26] VITALS: Ht 152.4 cm; Wt 56.8 kg
[~2018-11-26 22:22] MED LIST changes: +IBUP-1542 PO
--- NOTE | 2018-11-26 22:42 | ERD ---
ER Documentation Chief Complaint Chief Complaint CP 04/08 "sharp" radiating to back X 3 hrs HPI This is an 78-year-old female with a prior history of coronary artery disease who presents for evaluation of chest pain. Patient reports that she has been having worsening chest pain described as sharp for the last 3 hours. Patient reports that she has been having on and off chest pain for about the last week as well, has not been alleviated or aggravated by anything, she did take nitroglycerin prior. Her crm dynamics developer is Dr. Robles, and she was scheduled for a stress test next week, however given that her symptoms have been worsening, she presented the ED. She has not had any hemoptysis, she has not had syncope, the pain is not described as tearing. ROS All systems reviewed and are negative except as per history of present illness. Medications Home Meds Active Scripts Ibuprofen* (Motrin*) 600 Mg Tab, 600 MG PO Q8, #30 TAB Prov:JANE LOW MD 10/29/18 Tramadol HCl (Tramadol HCl) 50 Mg Tablet, 50 MG PO Q6, #20 TAB Prov:FLETCHER BRADY 07/27/18 Gabapentin* (Gabapentin*) 300 Mg Capsule, 300 MG PO TID, #90 CAP Prov:JACKY HERNANDEZ DO 03/07/18 Pantoprazole* (Pantoprazole*) 40 Mg Tablet.dr, 40 MG PO DAILY@06 for 28 Days Prov:KATE MERCADO MD 05/16/17 Ranolazine* (Ranexa*) 500 Mg Tab.sr.12h, 1000 MG PO Q12 for 28 Days, TAB Prov:KATE MERCADO MD 04/04/17 [place]-3 Fatty Acids/Fish Oil (Fish Oil 1,000 mg Capsule) 1 Each Capsule, 1 EACH PO DAILY for 28 Days, CAP Prov:KATE MERCADO MD 04/04/17 Reported Medications Nitroglycerin* (Nitroglycerin* SL) 0.4 Mg Tab.subl, 0.4 MG SL Q5MIN PRN for CHEST PAIN, BOTTLE 07/26/18 Atorvastatin* (Atorvastatin*) 40 Mg Tablet, 40 MG PO QHS, #30 TAB 07/26/18 Ranolazine* (Ranexa*) 1,000 Mg Tab.sr.12h, 1000 MG PO Q12, TAB 07/26/18 Gabapentin* (Gabapentin*) 300 Mg Capsule, 300 MG PO TID, #90 CAP 07/26/18 Losartan Potassium* (Losartan Potassium*) 25 Mg Tablet, 25 MG PO DAILY, TAB 12/19/17 Amlodipine Besylate* (Amlodipine Besylate*) 2.5 Mg Tablet, 2.5 MG PO DAILY, #30 TAB 10/15/17 Baclofen* (Baclofen*) 10 Mg Tablet, 10 MG PO DAILY, TAB 10/15/17 Aspirin Ec (Aspir 81) 81 Mg Tablet.dr, 81 MG PO DAILY, #30 TAB 10/15/17 Isosorbide Mononitrate* (Isosorbide Mononitrate*) 60 Mg Tab.er.24h, 60 MG PO DAILY, TAB 05/11/17 Ferrous Sulfate* (Ferrous Sulfate*) 325 Mg Tabec, 325 MG PO DAILY, TAB 04/01/17 Docusate Sodium* (Docusate Sodium*) 100 Mg Capsule, 100 MG PO DAILY, #30 CAP 04/01/17 Clopidogrel Bisulfate (Clopidogrel) 75 Mg Tablet, 75 MG PO DAILY, #30 TAB 03/14/17 Zolpidem Tartrate* (Zolpidem Tartrate*) 10 Mg Tablet, 5 MG PO QHS PRN for INS OMNIA, #30 TAB 08/05/16 Allergies Allergies: Coded Allergies: No Known Drug Allergies (Verified Allergy, Mild, 10/29/18) PMhx/Soc History of Surgery: Yes (CABG, , APPENDECTOMY) Anesthesia Reaction: No Hx Neurological Disorder: No Hx Respiratory Disorders: No Hx Cardiac Disorders: Yes (CAD, HTN, HDL) Hx Psychiatric Problems: No Hx Miscellaneous Medical Probl: No Hx Alcohol Use: No Hx Substance Use: No Hx Tobacco Use: No Smoking Status: Never smoker Physical Exam Vitals Vital Signs Date Temp Pulse Resp B/P (MAP) Pulse Ox O2 O2 Flow FiO2 Time Delivery Rate 11/27/18 97.8 76 18 143/74 99 Room Air 01:57 (97) 11/27/18 73 16 126/77 100 Room Air 01:11 (93) 11/26/18 Nasal 22:51 Cannula 11/26/18 98.1 82 19 145/83 100 Room Air 22:51 (103) 11/26/18 98.1 88 18 134/76 100 22:31 (95) Physical Exam Const: Well-appearing, nontoxic well-nourished. Head: Atraumatic Eyes: Normal Conjunctiva ENT: Normal External Ears, Nose and Mouth. Neck: Full range of motion. No meningismus. Resp: Clear to auscultation bilaterally Cardio: Regular rate and rhythm, no murmurs Abd: Soft, non tender, non distended. Normal bowel sounds Skin: No petechiae or rashes Back: No midline or flank tenderness Ext: No cyanosis, or edema Neur: Awake and alert Psych: Normal Mood and Affect Result Diagram: 11/26/18230911/26/182309 Results 24 hrs Laboratory Tests Test 11/26/18 23:10 White Blood Count 4.5 10^3/ul Red Blood Count 3.67 10^6/ul Hemoglobin 12.6 g/dl Hematocrit 37.5 % Mean Corpuscular Volume 102.2 fl Mean Corpuscular Hemoglobin 34.3 pg Mean Corpuscular Hemoglobin Concent 33.6 g/dl Red Cell Distribution Width 11.8 % Platelet Count 211 10^3/UL Mean Platelet Volume 9.8 fl Immature Granulocytes % 0.200 % Neutrophils % 53.7 % Lymphocytes % 34.6 % Monocytes % 9.1 % Eosinophils % 2.0 % Basophils % 0.4 % Nucleated Red Blood Cells % 0.0 /100WBC Immature Granulocytes # 0.010 10^3/ul Neutrophils # 2.4 10^3/ul Lymphocytes # 1.6 10^3/ul Monocytes # 0.4 10^3/ul Eosinophils # 0.1 10^3/ul Basophils # 0.0 10^3/ul Nucleated Red Blood Cells # 0.0 10^3/ul Sodium Level 142 mmol/L Potassium Level 3.9 mmol/L Chloride Level 106 mmol/L Carbon Dioxide Level 27 mmol/L Anion Gap 9 Blood Urea Nitrogen 20 mg/dl Creatinine 0.84 mg/dl Est Glomerular Filtrat Rate mL/min mL/min Glucose Level 107 mg/dl Calcium Level 9.6 mg/dl Total Bilirubin 0.5 mg/dl Direct Bilirubin 0.00 mg/dl Indirect Bilirubin 0.5 mg/dl Aspartate Amino Transf (AST/SGOT) 21 IU/L Alanine Aminotransferase (ALT/SGPT) 14 IU/L Alkaline Phosphatase 85 IU/L Troponin I 0.016 ng/ml B-Type Natriuretic Peptide 97 PG/ML Total Protein 7.6 g/dl Albumin 4.5 g/dl Globulin 3.10 g/dl Albumin/Globulin Ratio 1.45 Current Medications Medications Dose Sig/Edward Start Time Status Last (Trade) Ordered Route PRN Stop Time Admin Dose Reason Admin Aspirin 325 mg ONCE STAT 11/26/18 DC 11/26/18 (Aspirin) PO 22:48 23:05 11/26/18 22:49 Procedures/MDM 78-year-old female presents for evaluation of chest pain. In the ED, she was given aspirin, she had improvement in her chest pain. Her troponin was within normal limits, and her EKG showed no evidence of acute ischemia, her chest x-ray showed cardiomegaly, did not show clear signs of CHF. Given her strong cardiac history my primary concern is that she could have acute coronary syndrome, and she warrants admission for further evaluation. Patient will be admitted to telemetry. Accepting Care Team: Current data and ongoing care discussed. Primary: Ryan Outstanding Data: none EKG: Rate/Rhythm: Normal Sinus Rhythm QRS, ST, T-waves: No changes consistent w/ acute ischemia Impression: No evidence of acute ischemia or arrhythmia Departure Diagnosis: Primary Impression: Chest pain Chest pain type: unspecified Qualified Codes: R07.9 - Chest pain, unspecified Additional Impression: Coronary artery disease Coronary Disease-Associated Artery/Lesion type: unspecified vessel or lesion type [place] vs. transplanted heart: unspecified whether [place] or transplanted heart Associated angina: angina presence unspecified Qualified Codes: I25.10 - Atherosclerotic heart disease of [place] coronary artery without angina pectoris Condition: ELIER Abdalla MD Nov 26, 2018 22:42
[2018-11-26] MEDS ORDERED: ASPIRIN 325 MG TAB PO STA (22:48)
[2018-11-27] VITALS (15 sets, daily range): BP systolic 102–143; BP diastolic 61–74; PULSE 64–76; RESP 14–18; Ht 152.4 cm; Wt 56.8 kg
[2018-11-27] MEDS ORDERED: ACETAMINOPHEN 325 MG TAB PO PRN (04:30)
[2018-11-27] MEDS ORDERED: IBUPROFEN 600 MG TAB PO PRN (04:30)
[2018-11-27] MEDS ORDERED: morphine 2 MG INJ IV PRN (04:30)
[2018-11-27] MEDS: NITROGLYCERIN (SL) 0.4 MG TAB SL PRN ×4 (04:42→21:40)
[2018-11-27] MEDS: PANTOPRAZOLE (EC) 40 MG TAB PO SCH (07:05)
[2018-11-27] MEDS: FISH OIL 1,000 MG CAP PO SCH (08:39)
[2018-11-27] MEDS: FERROUS SULFATE (EC) 325 MG TAB PO SCH (08:39)
[2018-11-27] MEDS: GABAPENTIN 300 MG CAP PO SCH ×3 (08:39→21:14)
[2018-11-27] MEDS: ASPIRIN (EC) 81 MG TAB PO SCH (08:39)
[2018-11-27] MEDS: DOCUSATE SODIUM 100 MG CAP PO SCH (08:40)
[2018-11-27] MEDS: BACLOFEN 10 MG TAB PO SCH (08:40)
[2018-11-27] MEDS: ISOSORBIDE MONONITRATE(SR)60 MG TAB PO SCH (08:40)
[2018-11-27] MEDS: RANOLAZINE (SR) 500 MG TAB PO SCH ×2 (08:40→21:15)
[2018-11-27] MEDS: CLOPIDOGREL 75 MG TAB PO SCH (08:40)
[2018-11-27] MEDS: LOSARTAN 25 MG TAB PO SCH (08:41)
--- NOTE | 2018-11-27 16:50 | QN ---
Documentation Comment [id number] KATE MERCADO MD Nov 27, 2018 16:50
--- NOTE | 2018-11-27 17:48 | HP ---
DATE OF ADMISSION: 11/27/2018 HISTORY OF PRESENT ILLNESS: The patient is with history of hypertension, CAD, history of CABG, histo ry of coronary angiogram and stent placement, hyperlipidemia, obesity, CKD, history of anemia, presen luis m with chest pain and is admitted for further management. EKG shows sinus rhythm with bundle branc h pattern with nonspecific ST-T changes. ALLERGY HISTORY: NEGATIVE. FAMILY HISTORY: Negative. SOCIAL HISTORY: Negative. MEDICATIONS AT HOME: The patient is on: 1. Aspirin. 2. Lipitor. 3. Baclofen. 4. Plavix. 5. Docusate sodium. 6. Ferrous sulfate. 7. Gabapentin. 8. Ibuprofen. 9. Isosorbide. 10. Losartan. 11. [place] 3 fatty acid. 12. Protonix. 13. . 14. Ambien. REVIEW OF SYSTEMS: HEENT: Unremarkable. RESPIRATORY: Unremarkable. CARDIOVASCULAR: Chest pain. No radiation of pain to any of the extremities. ABDOMEN: Unremarkable. EXTREMITIES: Unremarkable. PHYSICAL EXAMINATION: GENERAL: The patient is awake and alert. VITAL SIGNS: With pulse of 69, blood pressure 111/51. HEENT: Head is atraumatic, normocephalic. Pupils are equal, reactive to light. NECK: Supple. There is no JVD. LUNGS: Clear. CARDIOVASCULAR: S1, S2 are normal. ABDOMEN: Soft, nontender. Bowel sounds are positive. No palpable mass or hepatosplenomegaly. No g uarding, rebound tenderness. EXTREMITIES: No cyanosis, clubbing or edema. LABORATORY DATA: WBC 4.5, hematocrit 37.5, platelet count of 211. Sodium 142, potassium 3.9. IMPRESSION: 1. The patient has chest pain, rule out myocardial infarction. 2. Hypertension. 3. History of CABG. 4. History of neuropathy. PLAN: Obtain troponin, lipid panel, 2D echo. Cardiology consultation, Dr. Chatterjee has been called. Continue home medications. DVT prophylaxis and anti-anginal treatment. Dictated By: KATE MERCADO MD BS/NTS Conf#: [id number] DID#: [id number]
[2018-11-27] MEDS: ATORVASTATIN 40 MG TAB PO SCH (21:14)
[2018-11-27] MEDS: ZOLPIDEM 5 MG TAB PO PRN (22:45)
[2018-11-28] VITALS (10 sets, daily range): BP systolic 90–135; BP diastolic 61–67; PULSE 66–84; RESP 16–18
[2018-11-28] MEDS: PANTOPRAZOLE (EC) 40 MG TAB PO SCH (05:50)
[2018-11-28] MEDS: FISH OIL 1,000 MG CAP PO SCH (08:20)
[2018-11-28] MEDS: GABAPENTIN 300 MG CAP PO SCH ×3 (08:20→20:55)
[2018-11-28] MEDS: DOCUSATE SODIUM 100 MG CAP PO SCH (08:20)
[2018-11-28] MEDS: ASPIRIN (EC) 81 MG TAB PO SCH (08:20)
[2018-11-28] MEDS: BACLOFEN 10 MG TAB PO SCH (08:21)
[2018-11-28] MEDS: ISOSORBIDE MONONITRATE(SR)60 MG TAB PO SCH (08:21)
[2018-11-28] MEDS: FERROUS SULFATE (EC) 325 MG TAB PO SCH (08:21)
[2018-11-28] MEDS: CLOPIDOGREL 75 MG TAB PO SCH (08:21)
[2018-11-28] MEDS: RANOLAZINE (SR) 500 MG TAB PO SCH ×2 (08:26→20:55)
[2018-11-28] MEDS: LOSARTAN 25 MG TAB PO SCH (09:00)
--- NOTE | 2018-11-28 10:12 | PN ---
Date/Time of Note Date/Time of Note DATE: 11/28/18 TIME: 10:07 Assessment/Plan VTE Prophylaxis Risk score (from Ns)>0 risk: 4 SCD applied (from [facility] [place] No SCD contraindicated: low risk/ambulating Pharmacological prophylaxis: NA/contraindicated Pharm contraindication: low risk/ambulating Lines/Catheters IV Catheter Type ([facility] Peripheral IV Urinary Cath still in place: No Assessment/Plan Hospital Course 78 y/o with 1. The patient has chest pain neg for troponins 2. History of PTCA and stent placement in February 2017 to anastomotic lesion, saphenous vein graft to right coronary artery. 3. Coronary artery disease status post prior coronary bypass graft surgery. 4. Hypertension. 5. Dyslipidemia. Plan -CW ASA/plavix/imdur/losartan - NTG/ Ranexa for chest pain - ECHO pending - Pending cards consult - GI/DVT prophylaxsis Result Diagram: 11/28/18 0532 11/28/18 0532 Results 24hrs Laboratory Tests Test 11/27/18 10:28 11/28/18 05:32 Troponin I 0.024 White Blood Count 3.9 L Red Blood Count 3.67 L Hemoglobin 12.5 Hematocrit 37.2 Mean Corpuscular Volume 101.4 H Mean Corpuscular Hemoglobin 34.1 H Mean Corpuscular Hemoglobin Concent 33.6 Red Cell Distribution Width 11.8 Platelet Count 203 Mean Platelet Volume 10.3 Immature Granulocytes % 0.300 Neutrophils % 47.7 Lymphocytes % 39.5 Monocytes % 9.7 Eosinophils % 2.0 Basophils % 0.8 Nucleated Red Blood Cells % 0.0 Immature Granulocytes # 0.010 Neutrophils # 1.9 Lymphocytes # 1.6 Monocytes # 0.4 Eosinophils # 0.1 Basophils # 0.0 Nucleated Red Blood Cells # 0.0 Sodium Level 142 Potassium Level 4.1 Chloride Level 106 Carbon Dioxide Level 29 Anion Gap 7 Blood Urea Nitrogen 20 Creatinine 0.83 Est Glomerular Filtrat Rate mL/min Glucose Level 101 Calcium Level 9.3 Total Bilirubin 0.4 Direct Bilirubin 0.00 Indirect Bilirubin 0.4 Aspartate Amino Transf (AST/SGOT) 19 Alanine Aminotransferase (ALT/SGPT) 14 Alkaline Phosphatase 71 Total Protein 6.7 Albumin 3.9 Globulin 2.80 Albumin/Globulin Ratio 1.39 Triglycerides Level 136 Cholesterol Level 211 H LDL Cholesterol, Calculated 99 HDL Cholesterol 85 Cholesterol/HDL Ratio 2.4 Subjective 24 Hr Interval Summary Free Text/Dictation had chest pain last night Exam/Review of Systems Exam Vitals Vital Signs Date Temp Pulse Resp B/P (MAP) Pulse Ox O2 O2 Flow FiO2 Time Delivery Rate 11/28/18 82 08:00 11/28/18 98.0 18 124/66 98 Room Air 07:33 (85) 11/28/18 2.0 04:06 Intake and Output 11/27/18 11/27/18 11/28/18 1515:00 23:00 07:00 IntakeIntake Total 720 ml 250 ml BalanceBalance 720 ml 250 ml Exam HEENT: Head is atraumatic, normocephalic. Pupils are equal, reactive to light. NECK: Supple. There is no JVD. LUNGS: Clear. CARDIOVASCULAR: S1, S2 are normal. ABDOMEN: Soft, nontender. Bowel sounds are positive. No palpable mass or hepatosplenomegaly. No guarding, rebound tenderness. EXTREMITIES: No cyanosis, clubbing or edema. Results Results 24hrs Laboratory Tests Test 11/27/18 10:28 11/28/18 05:32 Troponin I 0.024 White Blood Count 3.9 L Red Blood Count 3.67 L Hemoglobin 12.5 Hematocrit 37.2 Mean Corpuscular Volume 101.4 H Mean Corpuscular Hemoglobin 34.1 H Mean Corpuscular Hemoglobin Concent 33.6 Red Cell Distribution Width 11.8 Platelet Count 203 Mean Platelet Volume 10.3 Immature Granulocytes % 0.300 Neutrophils % 47.7 Lymphocytes % 39.5 Monocytes % 9.7 Eosinophils % 2.0 Basophils % 0.8 Nucleated Red Blood Cells % 0.0 Immature Granulocytes # 0.010 Neutrophils # 1.9 Lymphocytes # 1.6 Monocytes # 0.4 Eosinophils # 0.1 Basophils # 0.0 Nucleated Red Blood Cells # 0.0 Sodium Level 142 Potassium Level 4.1 Chloride Level 106 Carbon Dioxide Level 29 Anion Gap 7 Blood Urea Nitrogen 20 Creatinine 0.83 Est Glomerular Filtrat Rate mL/min Glucose Level 101 Calcium Level 9.3 Total Bilirubin 0.4 Direct Bilirubin 0.00 Indirect Bilirubin 0.4 Aspartate Amino Transf (AST/SGOT) 19 Alanine Aminotransferase (ALT/SGPT) 14 Alkaline Phosphatase 71 Total Protein 6.7 Albumin 3.9 Globulin 2.80 Albumin/Globulin Ratio 1.39 Triglycerides Level 136 Cholesterol Level 211 H LDL Cholesterol, Calculated 99 HDL Cholesterol 85 Cholesterol/HDL Ratio 2.4 Medications Medication Current Medications Nitroglycerin (Nitroglycerin (Sl Tab) 0.4 Mg) 1 tab Q5M PRN SL ANGINA Last administered on 11/27/18 21:40; Admin Dose 1 TAB; Start 11/27/18 at 04:30 Acetaminophen (Tylenol Tab) 650 mg Q6H PRN PO MILD PAIN(1-3)OR ELEVATED TEMP; Start 11/27/18 at 04:30 Morphine Sulfate (morphine) 2 mg Q4H PRN IV SEVERE PAIN LEVEL 7-10; Start 11/27/18 at 04:30 Aspirin (Halfprin) 81 mg DAILY PO Last administered on 11/28/18 08:20; Admin Dose 81 MG; Start 11/27/18 at 09:00 Atorvastatin Calcium (Lipitor) 40 mg QHS PO Last administered on 11/27/18 21:14; Admin Dose 40 MG; Start 11/27/18 at 21:00 Baclofen (Lioresal) 10 mg DAILY PO Last administered on 11/28/18 08:21; Admin Dose 10 MG; Start 11/27/18 at 09:00 Clopidogrel Bisulfate (plaVIX) 75 mg DAILY PO Last administered on 11/28/18 08:21; Admin Dose 75 MG; Start 11/27/18 at 09:00 Docusate Sodium (Colace) 100 mg DAILY PO Last administered on 11/28/18 08:20; Admin Dose 100 MG; Start 11/27/18 at 09:00 Ferrous Sulfate (Ferrous Sulfate (Ec)) 325 mg DAILY PO Last administered on 11/28/18 08:21; Admin Dose 325 MG; Start 11/27/18 at 09:00 Gabapentin (Neurontin) 300 mg TID PO Last administered on 11/28/18 08:20; Admin Dose 300 MG; Start 11/27/18 at 09:00 Ibuprofen (Motrin) 600 mg Q8H PRN PO PAIN; Start 11/27/18 at 04:30 Isosorbide Mononitrate (Imdur) 60 mg DAILY PO Last administered on 11/28/18 08:21; Admin Dose 60 MG; Start 11/27/18 at 09:00 Losartan Potassium (Cozaar) 25 mg DAILY PO Last administered on 11/27/18 08:41; Admin Dose 25 MG; Start 11/27/18 at 09:00 Pantoprazole (Protonix Tab) 40 mg DAILY@06 PO Last administered on 11/28/18 05:50; Admin Dose 40 MG; Start 11/27/18 at 06:00 Ranolazine (Ranexa) 1,000 mg Q12 PO Last administered on 11/28/18 08:26; Admin Dose 1,000 MG; Start 11/27/18 at 09:00 Zolpidem Tartrate (Ambien) 5 mg QHS PRN PO INSOMNIA Last administered on 11/27/18 22:45; Admin Dose 5 MG; Start 11/27/18 at 04:30 Fish Oil (Fish Oil) 1,000 mg DAILY PO Last administered on 11/28/18 08:20; Admin Dose 1,000 MG; Start 11/27/18 at 09:00 GUANACO TAYLOR MD Nov 28, 2018 10:12
--- NOTE | 2018-11-28 14:25 | CONS ---
DATE OF ADMISSION: 11/27/2018 DATE OF CONSULTATION: 11/28/2018 TYPE OF CONSULTATION: Cardiology. REASON FOR CONSULTATION: Chest pain, assess for acute coronary syndrome. REQUESTING PHYSICIAN: Camron Mercado MD HISTORY OF PRESENT ILLNESS: Ms. Najera is a very pleasant 78-year-old female with history of coronar y artery disease, status post coronary artery bypass surgery, PTCA and stent placement most recently on 03/15/2017 to saphenous vein graft site supplying right coronary artery for anastomotic lesion, hy pertension, dyslipidemia, who presents with complaints of substernal chest pain describes as pressure -like sensation with associated stabbing sensation and some radiation towards her back. Upon arrival , temperature of 98.1, blood pressure 134/76, pulse 88, respiratory rate 18, satting 100%. [facility] revealed white blood cell count of 4.5, hemoglobin 12.6, platelet count of 211, a sodium of 142, potassium 3.9, creatinine 0.8, BUN 20. Troponin negative. BNP of 97. LDL 99, HDL 85. The [place] underwent a chest x-ray revealing new mid left lung atelectasis, cardiomegaly, decreased lung i nflation. The patient's electrocardiogram revealed sinus rhythm, rate of 71, first degree AV block, left axis deviation, lateral T-wave inversions, anterior T-wave inversions, inferior Q's. The elisabeth espinosa subsequently has been admitted to the floor and since admit to the floor, continued to complain of substernal chest pain at rest. The patient has had a total of 3 negative troponins, ruling out acute myocardial infarction. PAST MEDICAL HISTORY: As above in HPI. MEDICATIONS CURRENTLY IN HOSPITAL: 1. Lipitor 40 mg at bedtime. 2. Aspirin 81 mg daily. 3. Plavix 75 mg daily. 4. Neurontin 300 mg t.i.d. 5. Imdur 60 mg daily. 6. Cozaar 25 mg daily. 7. Ranexa 1000 mg q.12. 8. Fish oil 1 gram daily. 9. Protonix 40 mg daily. 10. Sublingual nitroglycerin p.r.n. 11. Morphine p.r.n. 12. Tylenol p.r.n. 13. Motrin p.r.n. ALLERGIES: NO KNOWN DRUG ALLERGIES. SOCIAL HISTORY: No current tobacco, EtOH or illicit drug use. FAMILY HISTORY: No history of sudden cardiac or early CAD. REVIEW OF SYSTEMS: As above in HPI. CONSTITUTIONAL: No fevers, chills. PULMONARY: No current shortness of breath. CARDIOVASCULAR: Intermittent chest pain. GASTROINTESTINAL: No vomiting. GENITOURINARY: No hematuria. MUSCULOSKELETAL: Degenerative joint disease. PSYCHIATRIC: No documented psych history. NEUROLOGIC: No documented history of CVA. ENDOCRINE: No documented history of diabetes mellitus. PHYSICAL EXAMINATION: VITAL SIGNS: Temperature 97.8, blood pressure 124/66, pulse of 79, respiratory rate 18, satting 98%. GENERAL: The patient is alert, awake, in no acute distress. NECK: JVP is approximately 8 to 9 cm of water. CHEST: Fair air movement throughout. HEART: Regular rate and rhythm. Normal S1, S2, I/ systolic murmur, nondisplaced PMI. ABDOMEN: Positive bowel sounds, soft. EXTREMITIES: No significant pitting edema, 1+ pulses bilaterally, posterior tibial. LABORATORIES: Most recently from today, sodium 150, potassium 4.1, creatinine 0.8, BUN 20. LDL 99, HDL 85. White blood cell count 3.9, hemoglobin 12.5, platelet count of 203. IMAGING STUDIES: As above in HPI. No further imaging studies for my review at this time. ELECTROCARDIOGRAM: As above in HPI. No further electrocardiograms for my review at this time. IMPRESSION: 1. Chest pain, assess for acute coronary syndrome with negative troponins x3 at this time, but EKG a bnormalities and additionally history of coronary artery bypass graft surgery and stenting, assess fo r ongoing acute coronary syndrome. 2. Hypertension, under reasonable control on current antihypertensives. 3. Dyslipidemia. 4. History of coronary artery disease, status post coronary artery bypass graft surgery. 5. History of PTCA and stent placement most recently in 02/2017 to saphenous vein graft supplying [facility] coronary artery anastomotic lesion. 6. Abnormal EKG with inferior Q's, anteroseptal Q's and anterolateral T-wave abnormalities. RECOMMENDATIONS: 1. At this time, we would maintain the patient on telemetry monitoring to follow rhythm and rate con trol closely. 2. We would continue the patient's current antihypertensives with losartan and the patient's antiang inal with Imdur and Ranexa. 3. Discontinue the patient's dual antiplatelet therapy with aspirin and Plavix. 4. Continue the patient's current fish oil. The patient should be resumed on her baseline statin an d we will follow up the patient's 2D echo done for assessment of ejection fraction, wall motion, rule out any major abnormalities. 5. We will send 1 additional troponin to assure the patient has not had any acute coronary syndromes such as an acute myocardial infarction and found to be negative and if the patient continues to have chest pain, then likely we will place the patient in for a cardiac stress test to take place first t [place] in the morning to further assess for possibility of recurrent significant obstructive coronary a rtery disease lending to symptoms of chest pain and subsequently admit to the hospital. Thank you for allowing me to take part in this patient. Dictated By: FIDELIA ACEVES/NINA Conf#: [id number] DID#: [id number] CC: CAMRON MERCADO MD; GUANACO TAYLOR;*End*
--- NOTE | 2018-11-28 18:33 | RADRPT ---
Echocardiogram Report Patient Name: SEDA JAYPatient ID: [id number] : 1940 (78y 6m)Study Date: 11/28/2018 8:04:26 AM Gender: FAccession #: [id number] Tech: SalomeDonita Escobar RDCS Location: [id number] Ref.Physician: KATE MERCADO Height(Cm): BSA: Weight(Kg): Quality: Technically Difficult StudyAccount #: Procedures: Echocardiographic Report: Transthoracic echocardiogram with complete 2D, M-Mode, and doppler examination. Indications: Chest Pain. Measurements: 2D/M Mode Doppler Measurement Value Normal Range Measurement Value Normal Range LVIDd 2D 3.4 [ 3.8 - 5.2 ] cm AV Peak Sergio 1.3 [ 100.0 - 170.0 ] cm/sec LVIDs 2D 2.1 [ 2.2 - 3.5 ] cm AV Peak PG 7.0 [ 2.0 - 9.0 ] mmHg LVPWd 2D 1.4 [ 0.6 - 0.9 ] cm LVOT Peak Sergio 1.1 [ 70.0 - 110.0 ] cm/sec IVSd 2D 1.3 [ 0.6 - 0.9 ] cm LVOT Peak PG 5.0 [ 2.0 - 6.0 ] mmHg AoR Diam 2D 3.1 [ 2.3 - 3.1 ] cm MV E Peak Sergio 0.5 [ 60.0 - 130.0 ] cm/sec EDV 2D 47.1 [ 46.0 - 106.0 ] ml MV A Peak Sergio 0.7 [ 100.0 - 120.0 ] cm/sec ESV 2D 15.1 [ 14.0 - 42.0 ] ml MV E/A 0.6 [ 0.8 - 1.5 ] ratio EF 2D 67.9 [ 54.0 - 74.0 ] percent MV Decel Time 261 [ 104 - 258 ] msec LA Dimen 2D 2.5 [ 2.7 - 3.8 ] cm Lat E` Sergio 0.1 [ 10.0 - 15.0 ] cm/sec Lateral E/E` 6.1 [ 1.0 - 2.0 ] ratio MV E/A 0.6 [ 0.8 - 1.5 ] ratio Findings: Left Ventricle: Normal left ventricular systolic function. Normal left ventricular cavity size. Moderate concentric left ventricular hypertrophy. Ejection fraction is visually estimated at 60-65 %. Tissue Doppler/Mitral Doppler indices are consistent with impaired relaxation (Stage I diastolic dysfunction). Right Ventricle: Normal right ventricular size. Normal right ventricular systolic function. Left Atrium: The left atrium is normal in size. Right Atrium: The right atrium is normal in size. Mitral Valve: Normal appearance and function of the mitral valve with trace physiologic regurgitation. Aortic Valve: No significant aortic stenosis or insufficiency. Aortic cusps appear mildly calcified. Tricuspid Valve: Normal appearance of the tricuspid valve. Unable to obtain RVSP due to minimal presence of tricuspid regurgitation. Pulmonic Valve: Pulmonic valve not well visualized. Pericardium: Normal pericardium with no significant pericardial effusion. Aorta: Normal aortic root. IVC: Normal size and normal respiratory collapse consistent with normal right atrial pressure. Conclusions: Normal left ventricular systolic function. Normal left ventricular cavity size. Moderate concentric left ventricular hypertrophy. Ejection fraction is visually estimated at 60-65 %. Tissue Doppler/Mitral Doppler indices are consistent with impaired relaxation (Stage I diastolic dysfunction). Normal appearance and function of the mitral valve with trace physiologic regurgitation. Normal appearance of the tricuspid valve. Unable to obtain RVSP due to minimal presence of tricuspid regurgitation. Electronically Signed By: Jason Robles 2018-11-28 18:32:02 PDT
[2018-11-28] MEDS: ATORVASTATIN 40 MG TAB PO SCH (20:55)
[2018-11-28] MEDS: ZOLPIDEM 5 MG TAB PO PRN (22:41)
[2018-11-29] VITALS (9 sets, daily range): BP systolic 95–151; BP diastolic 54–74; PULSE 63–77; RESP 16–20
[2018-11-29] MEDS: PANTOPRAZOLE (EC) 40 MG TAB PO SCH (06:51)
--- NOTE | 2018-11-29 09:07 | CONS ---
Consult Date/Type/Reason Admit Date/Time Nov 27, 2018 at 00:31 Initial Consult Date Date/Time of Note DATE: 11/29/18 TIME: 09:04 Subjective NO acute events - r/o [place] - still reports recurrent CP - stress test planned today. ROS: No fever, no chills, no nausea, no vomiting, no diarrhea/constipation No recent weight changes Recurret chest pain + , no PND, no orthopnea - mild SOB No dizziness, blurred vision No thirst, no heat or cold intolerance Objective Vitals Vital Signs Date Temp Pulse Resp B/P (MAP) Pulse Ox O2 O2 Flow FiO2 Time Delivery Rate 11/29/18 68 08:17 11/29/18 98.4 16 131/73 99 Room Air 07:57 (92) 11/28/18 2.0 04:06 Intake and Output 11/28/18 11/28/18 11/29/18 1515:00 23:00 07:00 IntakeIntake Total 860 ml 300 ml BalanceBalance 860 ml 300 ml Exam General: WN/WD/NAD, AOx 3 HEENT: Unicetric/atraumatic/EOMI (follow commands) NECK: JVD elevated, no thyromegaly Lymph: no lymphadenopathy HEART: regular with no S3, II/ systolic murmur at apex, mid-sternal scar LUNGS: Coarse sounds ABD: soft, NT, ND, +BS : Intact Neuro: non focal SKIN: chronic changes EXT: trace edema Results/Medications Result Diagram: 11/28/18 0532 11/28/18 0532 Results 24 hrs Laboratory Tests Test 11/28/18 13:01 Troponin I 0.013 Home Meds Active Scripts Ibuprofen* (Motrin*) 600 Mg Tab, 600 MG PO Q8, #30 TAB Prov:JANE LOW MD 10/29/18 Gabapentin* (Gabapentin*) 300 Mg Capsule, 300 MG PO TID, #90 CAP Prov:JACKY HERNANDEZ DO 03/07/18 Pantoprazole* (Pantoprazole*) 40 Mg Tablet.dr, 40 MG PO DAILY@06 for 28 Days Prov:KATE MERCADO MD 05/16/17 [place]-3 Fatty Acids/Fish Oil (Fish Oil 1,000 mg Capsule) 1 Each Capsule, 1 EACH PO DAILY for 28 Days, CAP Prov:KATE MERCADO MD 04/04/17 Reported Medications Atorvastatin* (Atorvastatin*) 40 Mg Tablet, 40 MG PO QHS, #30 TAB 07/26/18 Ranolazine* (Ranexa*) 1,000 Mg Tab.sr.12h, 1000 MG PO Q12, TAB 07/26/18 Gabapentin* (Gabapentin*) 300 Mg Capsule, 300 MG PO TID, #90 CAP 07/26/18 Losartan Potassium* (Losartan Potassium*) 25 Mg Tablet, 25 MG PO DAILY, TAB 12/19/17 Baclofen* (Baclofen*) 10 Mg Tablet, 10 MG PO DAILY, TAB 10/15/17 Aspirin Ec (Aspir 81) 81 Mg Tablet.dr, 81 MG PO DAILY, #30 TAB 10/15/17 Isosorbide Mononitrate* (Isosorbide Mononitrate*) 60 Mg Tab.er.24h, 60 MG PO DAILY, TAB 05/11/17 Ferrous Sulfate* (Ferrous Sulfate*) 325 Mg Tabec, 325 MG PO DAILY, TAB 04/01/17 Docusate Sodium* (Docusate Sodium*) 100 Mg Capsule, 100 MG PO DAILY, #30 CAP 04/01/17 Clopidogrel Bisulfate (Clopidogrel) 75 Mg Tablet, 75 MG PO DAILY, #30 TAB 03/14/17 Zolpidem Tartrate* (Zolpidem Tartrate*) 10 Mg Tablet, 5 MG PO QHS PRN for INSOMNIA, #30 TAB 08/05/16 Discontinued Reported Medications Nitroglycerin* (Nitroglycerin* SL) 0.4 Mg Tab.subl, 0.4 MG SL Q5MIN PRN for CHEST PAIN, BOTTLE 07/26/18 Amlodipine Besylate* (Amlodipine Besylate*) 2.5 Mg Tablet, 2.5 MG PO DAILY, #30 TAB 10/15/17 Discontinued Scripts Tramadol HCl (Tramadol HCl) 50 Mg Tablet, 50 MG PO Q6, #20 TAB Prov:FLETCHER BRADY 07/27/18 Ranolazine* (Ranexa*) 500 Mg Tab.sr.12h, 1000 MG PO Q12 for 28 Days, TAB Prov:KATE MERCADO MD 04/04/17 Medications Current Medications Nitroglycerin (Nitroglycerin (Sl Tab) 0.4 Mg) 1 tab Q5M PRN SL ANGINA Last administered on 3/31/19at 21:40; Admin Dose 1 TAB; Start 11/27/18 at 04:30 Acetaminophen (Tylenol Tab) 650 mg Q6H PRN PO MILD PAIN(1-3)OR ELEVATED TEMP; Start 11/27/18 at 04:30 Morphine Sulfate (morphine) 2 mg Q4H PRN IV SEVERE PAIN LEVEL 7-10; Start 11/27/18 at 04:30 Aspirin (Halfprin) 81 mg DAILY PO Last administered on 11/28/18 08:20; Admin Dose 81 MG; Start 11/27/18 at 09:00 Atorvastatin Calcium (Lipitor) 40 mg QHS PO Last administered on 11/28/18 20:55; Admin Dose 40 MG; Start 11/27/18 at 21:00 Baclofen (Lioresal) 10 mg DAILY PO Last administered on 11/28/18 08:21; Admin Dose 10 MG; Start 11/27/18 at 09:00 Clopidogrel Bisulfate (plaVIX) 75 mg DAILY PO Last administered on 11/28/18 08:21; Admin Dose 75 MG; Start 11/27/18 at 09:00 Docusate Sodium (Colace) 100 mg DAILY PO Last administered on 11/28/18 08:20; Admin Dose 100 MG; Start 11/27/18 at 09:00 Ferrous Sulfate (Ferrous Sulfate (Ec)) 325 mg DAILY PO Last administered on 11/28/18 08:21; Admin Dose 325 MG; Start 11/27/18 at 09:00 Gabapentin (Neurontin) 300 mg TID PO Last administered on 11/28/18 20:55; Admin Dose 300 MG; Start 11/27/18 at 09:00 Ibuprofen (Motrin) 600 mg Q8H PRN PO PAIN; Start 11/27/18 at 04:30 Isosorbide Mononitrate (Imdur) 60 mg DAILY PO Last administered on 11/28/18 08:21; Admin Dose 60 MG; Start 11/27/18 at 09:00 Losartan Potassium (Cozaar) 25 mg DAILY PO Last administered on 11/28/18 09:00; Admin Dose 25 MG; Start 11/27/18 at 09:00 Pantoprazole (Protonix Tab) 40 mg DAILY@06 PO Last administered on 11/29/18 06:51; Admin Dose 40 MG; Start 11/27/18 at 06:00 Ranolazine (Ranexa) 1,000 mg Q12 PO Last administered on 11/28/18at 20:55; Admin Dose 1,000 MG; Start 11/27/18 at 09:00 Zolpidem Tartrate (Ambien) 5 mg QHS PRN PO INSOMNIA Last administered on 11/28/18at 22:41; Admin Dose 5 MG; Start 11/27/18 at 04:30 Fish Oil (Fish Oil) 1,000 mg DAILY PO Last administered on 11/28/18at 08:20; Admin Dose 1,000 MG; Start 11/27/18 at 09:00 Assessment/Plan Hospital Course (Demo Recall) 1. Chest pain, assess for acute coronary syndrome with negative troponins x3 at this time, but EKG abnormalities and additionally history of coronary artery byp ass graft surgery and stenting, assess for ongoing acute coronary syndrome. Stress test planned today. 2. Hypertension, under reasonable control on current antihypertensives - beter controlled. 3. Dyslipidemia. 4. History of coronary artery disease, status post coronary artery bypass graft surgery. Will follow EF with ECHO. 5. History of PTCA and stent placement most recently in 02/2017 to saphenous vein graft supplying right coronary artery anastomotic lesion. Treated. 6. Abnormal EKG with inferior Q's, anteroseptal Q's and anterolateral T-wave abnormalities. Rate controlled now. JUANCARLOS FERNANDEZ MD Nov 29, 2018 09:07
[2018-11-29] MEDS ORDERED: REGADENOSON 0.4 MG/5 ML SYG ONE (09:20)
--- NOTE | 2018-11-29 10:11 | ECORPT ---
DATE OF SERVICE: 11/29/2018 REFERRING PHYSICIAN: Dr. Mercado and Dr. Robles. REASON FOR EVALUATION: Precordial chest pain, history of coronary artery bypass graft. DESCRIPTION: The patient was brought into heart station in a fasting condition. Initial blood press ure was 140/39. Her EKG had some nondiagnostic ST-T changes. She had a successful Lexiscan injectio n. The imaging portion will be dictated separately. Dictated By: JUANCARLOS FERNANDEZ MD ML/NTS Conf#: [id number] DID#: [id number] CC: FIDEILA ROBLES MD; KATE MERCADO MD;*EndCC*
[2018-11-29] MEDS: DOCUSATE SODIUM 100 MG CAP PO SCH (11:03)
[2018-11-29] MEDS: BACLOFEN 10 MG TAB PO SCH (11:03)
[2018-11-29] MEDS: GABAPENTIN 300 MG CAP PO SCH ×2 (11:04→15:03)
[2018-11-29] MEDS: RANOLAZINE (SR) 500 MG TAB PO SCH (11:04)
[2018-11-29] MEDS: FERROUS SULFATE (EC) 325 MG TAB PO SCH (11:04)
[2018-11-29] MEDS: ASPIRIN (EC) 81 MG TAB PO SCH (11:04)
[2018-11-29] MEDS: FISH OIL 1,000 MG CAP PO SCH (11:04)
[2018-11-29] MEDS: LOSARTAN 25 MG TAB PO SCH (11:04)
[2018-11-29] MEDS: CLOPIDOGREL 75 MG TAB PO SCH (11:04)
[2018-11-29] MEDS: ISOSORBIDE MONONITRATE(SR)60 MG TAB PO SCH (11:04)
--- NOTE | 2018-11-29 14:11 | PDOCDIS ---
Discharge Instructions DIAGNOSIS Discharge Diagnosis Atypical cp CONDITION [id number] Patient Condition: [id number] Fair HOME CARE INSTRUCTIONS: [id number] Diet Instructions: Nyizz4h Low Fat /Cholesterol ACTIVITY: Havym0Vq Activity Restrictions: Syask6a Slowly Increase Activity Rest between Activity Avoid heavy lifting FOLLOW UP/APPOINTMENTS Follow-up Plan f/u PCP in 1-2 weeks f/u Dr Robles in 1week return to ER if has cp/sob GUANACO TAYLOR MD Nov 29, 2018 14:11
--- NOTE | 2018-11-29 20:54 | DS ---
DATE OF ADMISSION: 11/27/2018 DATE OF DISCHARGE: 11/29/2018 HISTORY OF PRESENTING ILLNESS AND HOSPITAL COURSE: This is an 78-year-old female with a past medical history of coronary artery disease status post coronary artery bypass surgery, PTCA and stent placem ent in 02/2017, hypertension, dyslipidemia, presented complaining of substernal chest pain described as a pressure-like sensation with associated stabbing sensation and radiation towards the back. On a dmission, vital signs were stable. BUN of 20, creatinine 0.8, BNP 97, LDL 99. Chest x-ray showed ne w mid left lung atelectasis, cardiomegaly. EKG showed heart rate of 71, first degree AV block, later al T-wave inversions, anterior T-wave inversions. The patient was admitted to the floor. The patien t had serial troponins that were negative. The patient was seen by cardiology consultation with Dr. Robles. She had an echocardiogram that showed normal left ventricular systolic function, EF 60% to 65%. The patient was seen by Dr. Chatterjee the next day and had nuclear stress test that showed no evid ence of perfusion defects, no wall motion abnormalities, EF of greater than 70%. The patient was fee ling much better. Chest pain had been resolving. Per Dr. Chatterjee, the patient is stable to be discha rged home. The patient is currently being discharged home. FINAL DISCHARGE DIAGNOSES: 1. Atypical chest pain, negative for ischemia. 2. Hypertension. 3. Dyslipidemia. 4. History of coronary artery disease, status post coronary artery bypass surgery. 5. History of PTCA and stent placement recently in 02/2017 to saphenous vein graft supplying right c oronary artery anastomotic lesion. DISCHARGE CONDITION: Stable. DISCHARGE DIET: A 2-gram sodium. DISCHARGE MEDICATIONS: 1. Aspirin 81. 2. Plavix 75. 3. Atorvastatin 40. 4. Baclofen 10 mg p.o. daily. 4. Colace 100. 5. ____. 6. Gabapentin 300 t.i.d. 7. Ibuprofen 600 mg p.o. b.i.d. 8. Imdur 60. 9. Losartan 25. 10. Fish oil 1 capsule daily. 11. Pantoprazole 40 mg. 12. ____. 13. Zolpidem 5 mg at bedtime p.r.n. insomnia. DISCHARGE INSTRUCTIONS: The patient was instructed to return to the ER if she has chest pain, shortn ess of breath and chest pain. FOLLOWUP: The patient will follow up with Dr. Robles in 1 to 2 weeks and with PCP in 1 to 2 weeks. Dictated By: GUANACO MUELLER/NINA Conf#: [id number] DID#: [id number] CC: KATE MERCADO MD;*End*
--- NOTE | 2018-11-30 15:21 | RADRPT ---
Vent Rate: 71 bpm RR Interval: 0 msec CO Interval: 220 msec QRS Duration: 94 msec QT Interval: 424 msec QTC Interval: 460 msec P-R-T [place]: 57 - -4 - 88 degrees Sinus rhythm with 1st degree AV block Possible Left atrial enlargement Incomplete right bundle branch block Anteroseptal infarct , age undetermined Abnormal ECG Electronically Signed By: Jase Low
== END 2018-11-29 16:49 | disposition home or self-care (01) | DRG 313 ==
LOC: E/R 22:22 → 6WM 11-27 00:31
PROVIDERS: ADMIT Internal Medicine Nephrology; ATTEND Internal Medicine Nephrology
DX: R07.89 Other chest pain (principal); I25.10 Atherosclerotic heart disease of native coronary artery without angina pectoris; G62.9 Polyneuropathy, unspecified; Z95.1 Presence of aortocoronary bypass graft; I10 Essential (primary) hypertension; E78.5 Hyperlipidemia, unspecified; Z79.82 Long term (current) use of aspirin; Z79.02 Long term (current) use of antithrombotics/antiplatelets; Z95.5 Presence of coronary angioplasty implant and graft
CPT/HCPCS: 36415; 71045; 78452; 80053; 80061; 83880; 84484; 85025; 87081; 93005; 93017; 93306; A9500; A9505; J2785

== ENCOUNTER 2019-03-25 12:20 | Emergency (ER) | payer MEDICARE, BC ==
[~2019-03-25] VITALS: Ht 157.5 cm; Wt 55.5 kg
[~2019-03-25 12:20] MED LIST changes: +ATOR-2 PO; +CLOP75TA19 PO; -RANO500T2 PO; -TRAM50TA2 PO
[2019-03-25 12:26] VITALS: Ht 157.5 cm; Wt 55.5 kg
--- NOTE | 2019-03-25 13:21 | ERD ---
ER Documentation Chief Complaint Chief Complaint chest pain and dizziness x 2 days, left ear pain x 1 week HPI 6-year-old female with history of bypass and stable angina uses nitro. Since last night while patient was cooking dinner started having mild chest discomfort similar to her prior episodes. At this time patient did not take her nitro as she feels slightly dizzy she do not want to add the nitro. Her pain is been constant, nonexertional, not progressive since yesterday evening. States the pain is of similar quality, nature and severity as her regular chest pain. Denies any headache, hearing loss, nausea or vomiting, shortness of breath or abdominal pain. Denies any changes in medications endorses medical compliance. ROS All systems reviewed and are negative except as per history of present illness. Medications Home Meds Reported Medications Clopidogrel Bisulfate* (Clopidogrel Bisulfate*) 75 Mg Tablet, 75 MG PO DAILY, #30 TAB 03/25/19 Losartan Potassium* (Losartan Potassium*) 25 Mg Tablet, 25 MG PO DAILY, TAB 03/25/19 Zolpidem Tartrate* (Zolpidem Tartrate*) 10 Mg Tablet, 10 MG PO QHS PRN for INSOMNIA, #30 TAB 03/25/19 Atorvastatin* (Atorvastatin*) 80 Mg Tablet, 80 MG PO QHS, #30 TAB 03/25/19 Gabapentin* (Gabapentin*) 300 Mg Capsule, 300 MG PO TID, #90 CAP 03/25/19 Pantoprazole* (Pantoprazole*) 40 Mg Tablet.dr, 40 MG PO AC BREAKFAST, TAB 03/25/19 Ranolazine* (Ranexa*) 1,000 Mg Tab.sr.12h, 1000 MG PO Q12, TAB 03/25/19 Amlodipine Besylate* (Amlodipine Besylate*) 2.5 Mg Tablet, 2.5 MG PO DAILY, #30 TAB 03/25/19 Nitroglycerin* (Nitroglycerin* SL) 0.4 Mg Tab.subl, 0.4 MG SL Q5MIN PRN for CHEST PAIN, BOTTLE 03/25/19 Isosorbide Mononitrate* (Isosorbide Mononitrate*) 60 Mg Tab.er.24h, 90 MG PO DAILY, TAB 03/25/19 Baclofen* (Baclofen*) 10 Mg Tablet, 10 MG PO Q8, TAB 03/25/19 Discontinued Reported Medications Atorvastatin* (Atorvastatin*) 40 Mg Tablet, 40 MG PO QHS, #30 TAB 07/26/18 Ranolazine* (Ranexa*) 1,000 Mg Tab.sr.12h, 1000 MG PO Q12, TAB 07/26/18 Gabapentin* (Gabapentin*) 300 Mg Capsule, 300 MG PO TID, #90 CAP 07/26/18 Losartan Potassium* (Losartan Potassium*) 25 Mg Tablet, 25 MG PO DAILY, TAB 12/19/17 Baclofen* (Baclofen*) 10 Mg Tablet, 10 MG PO DAILY, TAB 10/15/17 Aspirin Ec (Aspir 81) 81 Mg Tablet.dr, 81 MG PO DAILY, #30 TAB 10/15/17 Isosorbide Mononitrate* (Isosorbide Mononitrate*) 60 Mg Tab.er.24h, 60 MG PO DAILY, TAB 05/11/17 Ferrous Sulfate* (Ferrous Sulfate*) 325 Mg Tabec, 325 MG PO DAILY, TAB 04/01/17 Docusate Sodium* (Docusate Sodium*) 100 Mg Capsule, 100 MG PO DAILY, #30 CAP 04/01/17 Clopidogrel Bisulfate (Clopidogrel) 75 Mg Tablet, 75 MG PO DAILY, #30 TAB 03/14/17 Zolpidem Tartrate* (Zolpidem Tartrate*) 10 Mg Tablet, 5 MG PO QHS PRN for INSOMNIA, #30 TAB 08/05/16 Discontinued Scripts Ibuprofen* (Motrin*) 600 Mg Tab, 600 MG PO Q8, #30 TAB Prov:JANE LOW MD 10/29/18 Gabapentin* (Gabapentin*) 300 Mg Capsule, 300 MG PO TID, #90 CAP Prov:JACKY HERNANDEZ DO 03/07/18 Pantoprazole* (Pantoprazole*) 40 Mg Tablet.dr, 40 MG PO DAILY@06 for 28 Days Prov:KATE MERCADO MD 05/16/17 [place]-3 Fatty Acids/Fish Oil (Fish Oil 1,000 mg Capsule) 1 Each Capsule, 1 EACH PO DAILY for 28 Days, CAP Prov:KATE MERCADO MD 04/04/17 Allergies Allergies: Coded Allergies: No Known Drug Allergies (Verified Allergy, Mild, 03/25/19) PMhx/Soc History of Surgery: Yes (CABG (2009), Appendectomy, C/S) Anesthesia Reaction: No Hx Neurological Disorder: No Hx Respiratory Disorders: No Hx Cardiac Disorders: Yes (CAD, CABG, HLD, HTN) Hx Psychiatric Problems: No Hx Miscellaneous Medical Probl: No Hx Alcohol Use: No Hx Substance Use: No Hx Tobacco Use: No Smoking Status: Never smoker Physical Exam Vitals Vital Signs Date Temp Pulse Resp B/P (MAP) Pulse Ox O2 O2 Flow FiO2 Time Delivery Rate 03/25/19 98.9 65 12 106/74 98 Room Air 15:05 (85) 03/25/19 100/71 14:45 (81) 03/25/19 98.7 66 18 99/66 (77) 97 13:20 03/25/19 98.7 71 18 100/64 97 12:26 (76) Physical Exam Const: No acute distress Head: Atraumatic Eyes: Normal Conjunctiva ENT: Normal External Ears, Nose and Mouth. Neck: Full range of motion. No meningismus. Resp: Clear to auscultation bilaterally Cardio: Regular rate and rhythm, no murmurs Abd: Soft, non tender, non distended. Normal bowel sounds Skin: No petechiae or rashes Back: No midline or flank tenderness Ext: No cyanosis, or edema Neur: Awake and alert Psych: Normal Mood and Affect Result Diagram: 03/25/19 1318 03/25/19 1318 Results 24 hrs Laboratory Tests Test 03/25/19 13:18 03/25/19 15:31 White Blood Count 3.9 10^3/ul Red Blood Count 3.59 10^6/ul Hemoglobin 12.4 g/dl Hematocrit 36.5 % Mean Corpuscular Volume 101.7 fl Mean Corpuscular Hemoglobin 34.5 pg Mean Corpuscular Hemoglobin Concent 34.0 g/dl Red Cell Distribution Width 11.8 % Platelet Count 217 10^3/UL Mean Platelet Volume 9.8 fl Immature Granulocytes % 0.300 % Neutrophils % 54.4 % Lymphocytes % 33.5 % Monocytes % 9.0 % Eosinophils % 1.8 % Basophils % 1.0 % Nucleated Red Blood Cells % 0.0 /100WBC Immature Granulocytes # 0.010 10^3/ul Neutrophils # 2.1 10^3/ul Lymphocytes # 1.3 10^3/ul Monocytes # 0.4 10^3/ul Eosinophils # 0.1 10^3/ul Basophils # 0.0 10^3/ul Nucleated Red Blood Cells # 0.0 10^3/ul Sodium Level 143 mmol/L Potassium Level 4.3 mmol/L Chloride Level 108 mmol/L Carbon Dioxide Level 28 mmol/L Anion Gap 7 Blood Urea Nitrogen 18 mg/dl Creatinine 0.91 mg/dl Est Glomerular Filtrat Rate mL/min mL/min Glucose Level 115 mg/dl Calcium Level 9.6 mg/dl Troponin I 0.013 ng/ml 0.012 ng/ml Current Medications Medications Dose Sig/Edward Start Time Status Last (Trade) Ordered Route PRN Stop Time Admin Dose Reason Admin 1 tab Q5M UP TO 3 03/25/19 03/25/19 Nitroglycerin DOSES PRN 13:30 14:17 SL .CHEST (Nitroglyceri PAIN n (Sl Tab) 0.4 Mg) Procedures/MDM ECG Time: 1230 Ventricular Rate: 71 Rhythm: normal sinus rhythm. ST Segments: without evidence of depressions or elevations. Nonspecific T wave changes Intervals: without evidence of AV block, new BBB, long QT, [place] No evidence of delta wave. Chest X-ray 1V Interpreted by me: Soft Tissue: No acute abnormalities Bones: No acute abnormalities Mediastinum/Cardiac Silhouette/Lungs: No acute abnormalities Impression: Normal Chest X-Ray. Evidence of sternotomy The patient presents with chest pain and I considered pulmonary embolism, aortic dissection, pneumothorax among other diagnoses. Evaluation for acute coronary syndrome was performed. . Repeat EKG and troponin @ 3 hours were unchanged. Based on this evaluation the patients risk of major adverse cardiac events is <1%. Shared decision making occurred with patient and the decision has been made to discharge the patient for outpatient evaluation and functional study within 72 hours. ECG Time: 1533 Ventricular Rate:50 Rhythm: normal sinus rhythm. ST Segments: without evidence of depressions or elevations Intervals: without evidence of AV block, new BBB, long QT, [place] No evidence of delta wave. Departure Diagnosis: Primary Impression: Chest pain Ischemic chest pain type: unspecified angina pectoris type Condition: Stable KI JENNINGS MD Mar 25, 2019 13:21
[2019-03-25] MEDS ORDERED: NITROGLYCERIN (SL) 0.4 MG TAB SL PRN (13:30)
[2019-03-25 16:50] VITALS: BP 123/71; PULSE 65; RESP 12
== END 2019-03-25 16:50 | disposition home or self-care (01) ==
LOC: E/R 12:20
DX: R07.9 Chest pain, unspecified (principal); R40.2142 Coma scale, eyes open, spontaneous, at arrival to emergency department; I25.810 Atherosclerosis of coronary artery bypass graft(s) without angina pectoris; I10 Essential (primary) hypertension
CPT/HCPCS: 71045; 80048; 84484; 85025; 93005

== ENCOUNTER 2019-05-23 16:08 | Emergency (ER) | payer MEDICARE, BC ==
[~2019-05-23] VITALS: Ht 154.9 cm; Wt 55.8 kg
[~2019-05-23 16:08] MED LIST changes: -ASPI-535 PO; -ATOR40TA68 PO; +CEPH-443 PO; -CLOP75TA27 PO; -DOCU-159 PO; -FER325 PO; -IBUP-1542 PO; -OMEG-135 PO; +ONDA4TAB8 PO
[2019-05-23 16:43] VITALS: Ht 154.9 cm; Wt 55.8 kg
[2019-05-23] MEDS ORDERED: SOD CHLORIDE 0.9% 500 ML IV STA (17:30)
[2019-05-23] MEDS ORDERED: ONDANSETRON 4 MG INJ IV STA (17:30)
[2019-05-23] MEDS ORDERED: CEFTRIAXONE 1 GM/50 ML (PMX) 50 ML IVPB ONE (18:30)
[2019-05-23 19:38] VITALS: BP 123/74; PULSE 76; RESP 16
== END 2019-05-23 19:56 | disposition home or self-care (01) ==
LOC: E/R 16:08
DX: N30.00 Acute cystitis without hematuria (principal); I25.10 Atherosclerotic heart disease of native coronary artery without angina pectoris; N18.9 Chronic kidney disease, unspecified; I12.9 Hypertensive chronic kidney disease with stage 1 through stage 4 chronic kidney disease, or unspecified chronic kidney disease; E66.9 Obesity, unspecified; Z79.01 Long term (current) use of anticoagulants; Z95.1 Presence of aortocoronary bypass graft; Z98.61 Coronary angioplasty status
CPT/HCPCS: 36415; 71045; 80053; 81001; 83690; 84484; 85025; 93005; 96365; 96375; 99285; J0696; J2405; J7040